=== PATIENT | female | born 1935 | race Caucasian/White ===

== ENCOUNTER 2019-02-16 12:13 | Inpatient (IN) | payer MEDICARE, OTHER ==
[2019-02-16] MEDS ORDERED: Ondansetron 4 MG/2 ML SDV IVPUSH ONE ×2 (12:27→13:22)
[2019-02-16] MEDS ORDERED: Lactated Ringers 1,000 ML IV ONE (12:28)
--- NOTE | 2019-02-16 12:47 | EDM.PDOC ---
ED HPI GENERAL MEDICAL PROBLEM - General Chief Complaint: Lower Extremity Injury/Pain Stated Complaint: [facility] Time Seen by Provider: 02/16/19 12:42 Source of Information: Reports: Patient History Limitations: Reports: No Limitations - History of Present Illness INITIAL COMMENTS - FREE TEXT/NARRATIVE: 83-year-old female is brought in by [facility] for possible hip fracture. Patient was working in her garden when she tripped over a cucumber. No head trauma. Had pain to the left hip and identifies pain to the greater trochanter. At this time she is pain-free as EMS did give her 1 mg of Dilaudid. She is feeling nauseous and flushed from this. No pain to the left knee. No history of any problems with the left hip previously. Only had coffee this morning. 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: - Past Surgical History Female Surgical History: Reports: Hysterectomy Social & Family History - Family History Family Medical History: Noncontributory - Tobacco Use Smoking Status *Q: Never Smoker Second Hand Smoke Exposure: No - Caffeine Use Caffeine Use: Reports: Coffee - Recreational Drug Use Recreational Drug Use: No Review of Systems - Review of Systems Review Of Systems: See Below GI/Abdominal: Reports: Nausea, Vomiting Musculoskeletal: Reports: Other (left hip) Neurological: Denies: Headache, Syncope ED EXAM, GENERAL - Physical Exam Exam: See Below Exam Limited By: No Limitations General Appearance: Alert, WD/WN, Mild Distress Throat/Mouth: Normal Inspection, Normal Lips, Normal Voice, No Airway Compromise Head: Other (flushed face) Respiratory/Chest: No Respiratory Distress, Lungs Clear, Normal Breath Sounds Cardiovascular: Normal Peripheral Pulses, No Murmur, Tachycardia Peripheral Pulses: 3+: Posterior Tibial (L), Posterior Tibial (R), Dorsalis Pedis (L), Dorsalis Pedis (R) Extremities: Other (left leg is shortened, no external rotation, no pain with rotation of the left hip, however, pain had 1mg of dilaudid prior to arrival ) Neurological: Alert, Normal Cognition Skin Exam: Diaphoretic, Other (face is flushed) Course - Vital Signs Last Recorded V/S: Last Vital Signs Temp 97.9 F 02/16/19 12:22 Pulse 91 02/16/19 12:22 Resp 16 02/16/19 12:22 BP 143/73 H 02/16/19 12:22 Pulse Ox 94 L 02/16/19 12:22 - Orders/Labs/Meds Orders: Active Orders 24 hr Category Date Time Status Oxygen Therapy [RC] ASDIRECTED Care 02/16/19 13:08 Active Hip Min 2V or 3V w Pelvis Lt [CR] Stat Exams 02/16/19 12:27 Taken Lactated Ringers [Ringers, Lactated] 1,000 ml Med 02/16/19 12:28 Active IV .BOLUS Medication Orders Lactated Ringer's (Ringers, Lactated) 1,000 mls @ 100 mls/hr IV .BOLUS ONE Stop: 02/16/19 22:27 Last Admin: 02/16/19 12:36 Dose: 100 mls/hr Meds: Medications Generic Name Dose Route Start Last Admin Trade Name Freq PRN Reason Stop Dose Admin Lactated Ringer's 1,000 mls @ 100 mls/hr 02/16/19 12:28 02/16/19 12:36 Ringers, Lactated IV 02/16/19 22:27 100 mls/hr .BOLUS ONE Administration Discontinued Medications Generic Name Dose Route Start Last Admin Trade Name Freq PRN Reason Stop Dose Admin Ondansetron HCl 4 mg 02/16/19 12:27 02/16/19 12:38 Zofran IVPUSH 02/16/19 12:28 4 mg ONETIME ONE Administration Ondansetron HCl 4 mg 02/16/19 13:22 02/16/19 13:32 Zofran IVPUSH 02/16/19 13:23 4 mg ONETIME ONE Administration - Radiology Interpretation Free Text/Narrative:: xray of the left hip and pelvis shows a femoral neck fracture. - Re-Assessments/Exams Free Text/Narrative Re-Assessment/Exam: 02/16/19 13:[address] Partida of hip fracture. Will plan for surgery tomorrow. Discussed with Dr. Reyes hospitalist on. Agrees to the admission. Patient given 4mg IV zofran, continuing to vomiting from Dilaudid. Additional 4mg IV zofran ordered. Departure - Departure Time of Disposition: 13:44 Disposition: Admitted As Inpatient 64 Condition: Fair Clinical Impression: Femoral neck fracture - Discharge Information *PRESCRIPTION DRUG MONITORING PROGRAM REVIEWED*: No *COPY OF PRESCRIPTION DRUG MONITORING REPORT IN PATIENT MARTHA: No Forms: ED Department Discharge Additional Instructions: Admitted to Dr. Reyes for left femoral neck fracture. Dr. Partida will plan to take to surgery tomorrow. - My Orders Last 24 Hours: My Active Orders 02/16/19 12:27 Hip Min 2V or 3V w Pelvis Lt [CR] Stat 02/16/19 12:28 Lactated Ringers [Ringers, Lactated] 1,000 ml IV .BOLUS 02/16/19 13:08 Oxygen Therapy [RC] ASDIRECTED - Assessment/Plan Last 24 Hours: My Active Orders 02/16/19 12:27 Hip Min 2V or 3V w Pelvis Lt [CR] Stat 02/16/19 12:28 Lactated Ringers [Ringers, Lactated] 1,000 ml IV .BOLUS 02/16/19 13:08 Oxygen Therapy [RC] ASDIRECTED
[2019-02-16] MEDS ORDERED: Ondansetron 4 MG/2 ML SDV IV PRN (16:40)
[2019-02-16] MEDS ORDERED: LORazepam 2 MG/ML SDV IVPUSH PRN (16:42)
[2019-02-16] MEDS ORDERED: Ondansetron 8 MG in Sodium Chloride 0.9% 50 ML IV PRN (16:47)
[2019-02-16] MEDS ORDERED: Promethazine 25 MG in Sodium Chloride 0.9% 50 ML IV ONE (16:55)
--- NOTE | 2019-02-16 17:09 | PCM.HP.2 ---
H&P History of Present Illness - General Date of Service: 02/16/19 Admit Problem/Dx: Admission Diagnosis/Problem Admission Diagnosis/Problem Hip fracture requiring operative repair Source of Information: Patient, EMS Notes Reviewed, Provider, RN Notes Reviewed History Limitations: Reports: No Limitations - History of Present Illness Initial Comments - Free Text/Narative: 83 year old female tripped in garden today and suffered left femoral fx. she relates no dizziness ,chest pain, ramirez, sob or vertigo.she feels well and on minimal meds at all . she has nausea since being given dilaudid and has muscle cramps in left leg and mild pain with this currently Onset of Symptoms: Reports: Today Duration of Symptoms: Reports: Hour(s): (4) Quality: Reports: Sharp Severity: Moderate Improves with: Reports: Immobilization Worsens with: Reports: Movement Associated Symptoms: Reports: No Other Symptoms, Nausea/Vomiting Left Hip Pain Score (Numeric/FACES): 0 - Related Data Allergies/Adverse Reactions: Allergies Allergy/AdvReac Type Severity Reaction Status Date / Time No Known Allergies Allergy Verified 02/16/19 12:27 Home Medications: Home Meds Metoprolol Succinate [Toprol XL] 50 mg PO DAILY 12/13/14 [History] Omeprazole 20 mg PO DAILY 12/13/14 [History] Fluticasone Propionate [Flovent] 1 spray INH ASDIRECTED PRN 02/16/19 [History] Past Medical History HEENT History: Reports: Impaired Vision Cardiovascular History: Reports: Hypertension Respiratory History: Reports: Bronchitis, Recurrent Gastrointestinal History: Reports: Colon Polyp, Diverticulosis, GERD Genitourinary History: Reports: UTI, Recurrent 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: Dermatologic History: Reports: Eczema - Past Surgical History HEENT Surgical History: Reports: Cataract Surgery GI Surgical History: Reports: Cholecystectomy Female Surgical History: Reports: Hysterectomy Social & Family History - Family History Family Medical History: Noncontributory - Tobacco Use Smoking Status *Q: Never Smoker Second Hand Smoke Exposure: No - Caffeine Use Caffeine Use: Reports: Coffee, Tea - Recreational Drug Use Recreational Drug Use: No H&P Review of Systems - Review of Systems: Review Of Systems: See Below General: Reports: No Symptoms HEENT: Reports: No Symptoms Pulmonary: Reports: No Symptoms Cardiovascular: Reports: No Symptoms Gastrointestinal: Reports: Nausea (chronic reflux ), Other Genitourinary: Reports: No Symptoms Musculoskeletal: Reports: No Symptoms Skin: Reports: No Symptoms Psychiatric: Reports: No Symptoms Neurological: Reports: No Symptoms Hematologic/Lymphatic: Reports: No Symptoms Immunologic: Reports: No Symptoms Exam - Exam Exam: See Below - Vital Signs Vital Signs: Last Vital Signs Temp 36.6 C 02/16/19 12:22 Pulse 91 02/16/19 12:22 Resp 16 02/16/19 12:22 BP 143/73 H 02/16/19 12:22 Pulse Ox 94 L 02/16/19 12:22 Weight: 76.43 kg - Exam General: Alert, Oriented, 4 HEENT: PERRLA, Hearing Intact, Mucosa Moist & Tropic, Nares Patent, Normal Nasal Septum, Posterior Pharynx Clear, Conjunctiva Clear, EOMI, EACs Clear, TMs Clear Neck: Supple, Trachea Midline, 2 Lungs: Clear to Auscultation, Normal Respiratory Effort Cardiovascular: Regular Rate, Regular Rhythm GI/Abdominal Exam: Normal Bowel Sounds, Soft, Non-Tender, No Organomegaly, No Distention, No Abnormal Bruit, No Mass, Pelvis Stable (Female) Exam: Deferred. No: Normal External Exam, Normal Speculum Exam, Normal Bimanual Exam Rectal (Female) Exam: No: Normal Exam, Normal Rectal Tone Back Exam: Normal Inspection, Full Range of Motion, NT Extremities: Normal Inspection, Normal Range of Motion, Non-Tender, No Pedal Edema, Normal Capillary Refill Peripheral Pulses: 2+: Carotid (L), Carotid (R) Skin: Warm, Dry, Intact Neurological: Cranial Nerves Intact, Reflexes Equal Bilateral Neuro Extensive - Mental Status: Alert, Oriented x3, Normal Mood/Affect, Normal Cognition Neuro Extensive - Motor, Sensory, Reflexes: CN II-XII Intact, Normal Gait, Normal Reflexes DTR: 1+: Bicep (L), Bicep (R) Psychiatric: Alert, Normal Affect, Normal Mood Physical Exam Comments:: left hip outward turned and pain with movement / leg cramping EKG INTERPRETATION Rhythm: NSR Roosevelt: Normal P-Wave: Present QRS: Normal ST-T: Normal QT: Normal - Problem List (1) Hypertension SNOMED Code(s): 28092835 ICD Code: I10 - ESSENTIAL (PRIMARY) HYPERTENSION Status: Acute Priority: Low Current Visit: Yes Onset Date: 02/16/19 (2) Chronic GERD SNOMED Code(s): 579490458, 141503005 ICD Code: K21.9 - GASTRO-ESOPHAGEAL REFLUX DISEASE WITHOUT ESOPHAGITIS Status: Acute Priority: Low Current Visit: Yes Onset Date: 02/16/19 Problem List Initiated/Reviewed/Updated: Yes Orders Last 24hrs: Active Orders 24 hr Category Date Time Status Patient Status [ADT] Routine ADT 02/16/19 14:23 Active Oxygen Therapy [RC] ASDIRECTED Care 02/16/19 13:08 Active Verify Patient Consent Obtain [RC] ASDIRECTED Care 02/16/19 14:28 Active NPO After Midnight [Nothing per Oral After Midnight Diet 02/16/19 Dinner Active Diet] [DIET] Hip Min 2V or 3V w Pelvis Lt [CR] Stat Exams 02/16/19 12:27 Taken METH-RESIST S.AUR,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 [MOLEC] Stat Lab 02/16/19 15:00 Received Cyclobenzaprine [Flexeril] Med 02/16/19 16:43 Active 10 mg PO TID PRN LORazepam [Ativan] Med 02/16/19 16:42 Active 1 mg IVPUSH Q4H PRN Lactated Ringers [Ringers, Lactated] 1,000 ml Med 02/16/19 12:28 Active IV .BOLUS Ondansetron [Zofran] 8 mg Med 02/16/19 16:47 Active Sodium Chloride 0.9% [Normal Saline] 50 ml IV Q8H Promethazine [Phenergan] 25 mg Med 02/16/19 16:55 Ordered Sodium Chloride 0.9% [Normal Saline] 50 ml IV ONETIME Code Status [Resuscitation Status] Routine Resus Stat 02/16/19 16:11 Ordered Medication Orders Cyclobenzaprine HCl (Flexeril) 10 mg PO TID PRN PRN Reason: Spasms Lactated Ringer's (Ringers, Lactated) 1,000 mls @ 100 mls/hr IV .BOLUS ONE Stop: 02/16/19 22:27 Last Admin: 02/16/19 12:36 Dose: 100 mls/hr Ondansetron HCl 8 mg/ Sodium (Chloride) 54 mls @ 108 mls/hr IV Q8H PRN PRN Reason: NAUSEA/VOMITING Promethazine HCl 25 mg/ Sodium (Chloride) 51 mls @ 100 mls/hr IV ONETIME ONE Stop: 02/16/19 17:25 Lorazepam (Ativan) 1 mg IVPUSH Q4H PRN PRN Reason: Nausea Assessment/Plan Comment:: give i.v mag muscle relaxant for cramps if persist. pain control good other than cramps
[2019-02-16] MEDS ORDERED: Sodium Chloride 0.9% 50 ML ONE (17:37)
--- NOTE | 2019-02-16 18:38 | PCM.PREANE ---
Preanesthetic Assessment - Anesthesia/Transfusion/Family Hx Anesthesia History: Prior Anesthesia Without Reaction Family History of Anesthesia Reaction: No Transfusion History: No Prior Transfusion(s) Intubation History: Unknown - Review of Systems General: No Symptoms Pulmonary: No Symptoms (COPD-recurrent bronchitis on flovent inhaler) Cardiovascular: No Symptoms (history of HTN) Gastrointestinal: No Symptoms (History of GERD), Constipation Neurological: No Symptoms Other: Reports: Sinus Problem (seasonal allergies) - Physical Assessment NPO Status Date: 02/16/19 NPO Status Time: 23:59 Vital Signs: Last Vital Signs Temp 36.6 C 02/16/19 12:22 Pulse 71 02/16/19 14:59 Resp 12 02/16/19 14:59 BP 139/71 02/16/19 14:59 Pulse Ox 98 02/16/19 14:59 Height: 1.65 m Weight: 76.43 kg ASA Class: 2E Mental Status: Alert & Oriented x3 Airway Class: Mallampati = 2 Dentition: Reports: Normal Dentition, Caries Thyro-Mental Finger Breadths: 3 Mouth Opening Finger Breadths: 3 ROM/Head Extension: Full Lungs: Clear to Auscultation, Normal Respiratory Effort, Rhonchi (faint on expiration) Cardiovascular: Regular Rate, Regular Rhythm, No Murmurs - Lab Values: Laboratory Last Values MRSA (PCR) Negative 02/16/19 15:00 All labs reviewed and noted and within acceptable ranges to proceed with scheduled procedure. - Imaging/EKG Impressions: CXR: mild CHF suspicious of EKG:SR rate=75 - Allergies Allergies/Adverse Reactions: Allergies Allergy/AdvReac Type Severity Reaction Status Date / Time No Known Allergies Allergy Verified 02/16/19 12:27 - Anesthesia Plan Pre-Op Medication Ordered: Beta Rashid Beta Rashid: Metoprolol Med Last Dose Date: 02/17/19 Med Last Dose Time: 06:49 - Acknowledgements Anesthesia Type Planned: Spinal Pt an Appropriate Candidate for the Planned Anesthesia: Yes Alternatives and Risks of Anesthesia Discussed w Pt/Guardian: Yes Pt/Guardian Understands and Agrees with Anesthesia Plan: Yes PreAnesthesia Questionnaire HEENT History: Reports: Impaired Vision Cardiovascular History: Reports: Hypertension Respiratory History: Reports: Bronchitis, Recurrent Gastrointestinal History: Reports: Colon Polyp, Diverticulosis, GERD Genitourinary History: Reports: UTI, Recurrent 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: Dermatologic History: Reports: Eczema - Past Surgical History HEENT Surgical History: Reports: Cataract Surgery GI Surgical History: Reports: Cholecystectomy Female Surgical History: Reports: Hysterectomy - SUBSTANCE USE Smoking Status *Q: Never Smoker Second Hand Smoke Exposure: No Recreational Drug Use History: No - HOME MEDS Home Medications: Home Meds Metoprolol Succinate [Toprol XL] 50 mg PO DAILY 12/13/14 [History] Omeprazole 20 mg PO DAILY 12/13/14 [History] Fluticasone Propionate [Flovent] 1 spray INH ASDIRECTED PRN 02/16/19 [History] - CURRENT (IN HOUSE) MEDS Current Meds: Current Medications Cyclobenzaprine HCl (Flexeril) 10 mg PO TID PRN PRN Reason: Spasms Lactated Ringer's (Ringers, Lactated) 1,000 mls @ 100 mls/hr IV .BOLUS ONE Stop: 02/16/19 22:27 Last Admin: 02/16/19 12:36 Dose: 100 mls/hr Ondansetron HCl 8 mg/ Sodium (Chloride) 54 mls @ 108 mls/hr IV Q8H PRN PRN Reason: NAUSEA/VOMITING Lorazepam (Ativan) 1 mg IVPUSH Q4H PRN PRN Reason: Nausea Metoprolol Succinate (Toprol Xl) 50 mg PO DAILY PATRICIA Pantoprazole Sodium (Protonix) 40 mg PO DAILY@0700 PATRICIA Discontinued Medications Promethazine HCl 25 mg/ Sodium (Chloride) 51 mls @ 100 mls/hr IV ONETIME ONE Stop: 02/16/19 17:25 Last Admin: 02/16/19 17:55 Dose: 100 mls/hr Magnesium Sulfate/Dextrose 1 (gm/ Premix) 100 mls @ 100 mls/hr IV ONETIME ONE Stop: 02/16/19 18:12 Sodium Chloride (Normal Saline) Confirm Administered Dose 50 mls @ as directed .ROUTE .STK-MED ONE Stop: 02/16/19 17:38 Ondansetron HCl (Zofran) 4 mg IVPUSH ONETIME ONE Stop: 02/16/19 12:28 Last Admin: 02/16/19 12:38 Dose: 4 mg Ondansetron HCl (Zofran) 4 mg IVPUSH ONETIME ONE Stop: 02/16/19 13:23 Last Admin: 02/16/19 13:32 Dose: 4 mg
--- NOTE | 2019-02-16 20:02 | CR ---
Chest: Portable view of the chest was obtained. Comparison: Prior chest x-ray of 08/23/11. Heart is prominent in size but difficult to confirm due to portable technique. Central lung markings are mildly increased believed to represent minimal pulmonary vascular congestion. Lungs otherwise are clear. Scattered disc space narrowing within the spine is seen with scoliosis. Impression: 1. Findings suspicious for mild CHF. Diagnostic code #3
[2019-02-16] MEDS: Cyclobenzaprine 10 MG Tab PO PRN (22:59)
[2019-02-17] MEDS ORDERED: Vancomycin 1 GM SDV ONE ×2 (06:25→08:15)
[2019-02-17] MEDS ORDERED: ceFAZolin 1 GM Vial ONE ×2 (06:25→07:40)
[2019-02-17] MEDS ORDERED: Iodine/Sodium Iodide 2% Tincture 30 ML Bottle ONE ×2 (06:25→08:15)
[2019-02-17] MEDS ORDERED: Bupivacaine 0.25% 10 ML SDV ONE ×2 (06:25→08:15)
[2019-02-17] MEDS ORDERED: Albuterol 0.083% 2.5 MG/3 ML Neb Soln NEB ONE (06:40)
[2019-02-17] MEDS ORDERED: Metoprolol Succinate 50 MG Tab.ER PO ONE (06:45)
[2019-02-17] MEDS ORDERED: Morphine 8 MG, EPINEPHrine 0.3 MG, Cefuroxime 750 MG, Ketorolac 30 MG, Sodium Chloride ... ONE ×10 (06:47→08:15)
[2019-02-17] MEDS ORDERED: Naloxone 0.4 MG/ML SDV IVPUSH PRN (06:48)
[2019-02-17] MEDS ORDERED: Ondansetron 4 MG/2 ML SDV IVPUSH PRN ×2 (06:48→09:24)
[2019-02-17] MEDS ORDERED: Sennosides 8.6 MG Tab PO PRN (06:48)
[2019-02-17] MEDS ORDERED: Bisacodyl 5 MG Tab PO PRN (06:48)
[2019-02-17] MEDS: Pantoprazole 40 MG Tab.CR PO SCH (06:49)
[2019-02-17] MEDS ORDERED: Phenylephrine/Normal Saline 100 MCG/ML 10 ML Syringe ONE (07:40)
[2019-02-17] MEDS ORDERED: Propofol 200 MG/20 ML SDV ONE (07:40)
[2019-02-17] MEDS ORDERED: Sodium Chloride 0.9% 2,000 ML ONE (07:40)
[2019-02-17] MEDS ORDERED: Ondansetron 4 MG/2 ML SDV ONE (07:40)
[2019-02-17] MEDS ORDERED: fentaNYL 100 MCG/2 ML SDV ONE (07:40)
[2019-02-17] MEDS ORDERED: Midazolam 1 MG/ML 2 ML SDV ONE ×2 (07:41→09:43)
[2019-02-17] MEDS ORDERED: Ketamine 500 mg/10 ML MDV ONE (07:41)
[2019-02-17] MEDS ORDERED: Metoprolol Succinate 50 MG Tab.ER PO SCH (09:00)
[2019-02-17] MEDS ORDERED: Albuterol 0.083% 2.5 MG/3 ML Neb Soln NEB PRN (09:24)
[2019-02-17] MEDS ORDERED: diphenhydrAMINE 50 MG/ML SDV IVPUSH PRN (09:24)
[2019-02-17] MEDS ORDERED: ePHEDrine 50 MG/ML SDV IVPUSH PRN (09:24)
[2019-02-17] MEDS ORDERED: HYDROmorphone 0.5 MG/0.5 ML Syringe IVPUSH PRN (09:24)
[2019-02-17] MEDS ORDERED: fentaNYL 100 MCG/2 ML SDV IVPUSH PRN (09:24)
[2019-02-17] MEDS ORDERED: Scopolamine 1.5 MG Transdermal Patch TRDERM PRN (09:26)
[2019-02-17] MEDS ORDERED: Phenylephrine 1 MG in Sodium Chloride 0.9% 10 ML IV SCH (09:30)
--- NOTE | 2019-02-17 11:06 | PCM.POSTAN ---
POST ANESTHESIA ASSESSMENT - MENTAL STATUS Mental Status: Alert - VITAL SIGNS Vital Signs: Last Vital Signs Temp 98.1f 02/17/19 10:47 Pulse 58 02/17/19 10:47 Resp 14 02/17/19 10:47 BP 96/63 02/17/19 10:47 Pulse Ox 99 02/17/19 10:47 - RESPIRATORY Respiratory Status: Respiratory Rate WNL, Airway Patent, O2 Saturation Stable, Supplemental Oxygen - CARDIOVASCULAR CV Status: Pulse Rate WNL, Blood Pressure Stable - GASTROINTESTINAL GI Status: No Symptoms - POST OP HYDRATION Hydration Status: Adequate & Stable
[2019-02-17] MEDS ORDERED: Morphine 2 MG/ML Syringe IVPUSH PRN (11:58)
--- NOTE | 2019-02-17 13:28 | PCM.PN ---
- General Info Date of Service: 02/17/19 Admission Dx/Problem (Free Text): Admission Diagnosis/Problem Admission Diagnosis/Problem Hip fracture requiring operative repair Subjective Update: day 1 surgery this am went well l orif. lungs clear. cor rrr without murmur abd benign. neuro clear headed a nd asks appropriate questions . drinking fluids ad moving legs easily now s/p orif left . b.p stable Functional Status: Reports: Pain Controlled - Review of Systems General: Reports: No Symptoms HEENT: Reports: No Symptoms Pulmonary: Reports: No Symptoms Cardiovascular: Reports: No Symptoms Gastrointestinal: Reports: No Symptoms Genitourinary: Reports: No Symptoms Musculoskeletal: Reports: No Symptoms Skin: Reports: No Symptoms Neurological: Reports: No Symptoms Psychiatric: Reports: No Symptoms - Patient Data Vitals - Most Recent: Last Vital Signs Temp 36.8 C 02/17/19 11:30 Pulse 78 02/17/19 06:50 Resp 11 L 02/17/19 11:40 BP 98/61 02/17/19 11:40 Pulse Ox 94 L 02/17/19 11:40 Weight - Most Recent: 76.43 kg I&O - Last 24 Hours: Intake & Output 02/16/19 02/17/19 02/17/19 22:59 06:59 14:59 Intake Total 750 Output Total 850 850 Balance -100 -850 Lab Results Last 24 Hours: Laboratory Results - last 24 hr 02/16/19 02/16/19 02/16/19 Range/Units 15:00 19:13 19:13 WBC 13.41 H (3.98-10.04) K/mm3 RBC 4.45 (3.98-5.22) M/mm3 Hgb 13.2 (11.2-15.7) gm/L Hct 39.4 (34.1-44.9) % MCV 88.5 (79.4-94.8) fl MCH 29.7 (25.6-32.2) pg MCHC 33.5 (32.2-35.5) g/dl RDW Std Deviation 44.0 (36.4-46.3) fL Plt Count 198 (182-369) K/mm3 MPV 10.8 (9.4-12.3) fl Neut % (Auto) 85.5 H (34.0-71.1) % Lymph % (Auto) 9.8 L (19.3-51.7) % Elk % (Auto) 4.6 L (4.7-12.5) % Eos % (Auto) 0 L (0.7-5.8) Baso % (Auto) 0.0 L (0.1-1.2) % Neut # (Auto) 11.46 H (1.56-6.13) K/mm3 Lymph # (Auto) 1.31 (1.18-3.74) K/mm3 Elk # (Auto) 0.62 H (0.24-0.36) K/mm3 Eos # (Auto) 0.00 L (0.04-0.36) K/mm3 Baso # (Auto) 0.00 L (0.01-0.08) K/mm3 Manual Slide Review Abnormal smear PT 11.1 (9.7-12.0) SECONDS INR 1.02 APTT 24 (22-31) SECONDS Sodium (136-145) mEq/L Potassium (3.5-5.1) mEq/L Chloride (98-107) mEq/L Carbon Dioxide (21-32) mEq/L Anion Gap (5-15) BUN (7-18) mg/dL Creatinine (0.55-1.02) mg/dL Est Cr Clr Drug Dosing mL/min Estimated GFR (MDRD) (>60) mL/min BUN/Creatinine Ratio (14-18) Glucose (83-115) mg/dL Calcium (8.5-10.1) mg/dL Total Bilirubin (0.2-1.0) mg/dL AST (15-37) U/L ALT (14-59) U/L Alkaline Phosphatase (46-116) U/L Total Protein (6.4-8.2) g/dl Albumin (3.4-5.0) g/dl Globulin gm/dL Albumin/Globulin Ratio (1-2) MRSA (PCR) Negative Blood Type Gel Antibody Screen 02/16/19 02/16/19 Range/Units 19:13 19:13 WBC (3.98-10.04) K/mm3 RBC (3.98-5.22) M/mm3 Hgb (11.2-15.7) gm/L Hct (34.1-44.9) % MCV (79.4-94.8) fl MCH (25.6-32.2) pg MCHC (32.2-35.5) g/dl RDW Std Deviation (36.4-46.3) fL Plt Count (182-369) K/mm3 MPV (9.4-12.3) fl Neut % (Auto) (34.0-71.1) % Lymph % (Auto) (19.3-51.7) % Elk % (Auto) (4.7-12.5) % Eos % (Auto) (0.7-5.8) Baso % (Auto) (0.1-1.2) % Neut # (Auto) (1.56-6.13) K/mm3 Lymph # (Auto) (1.18-3.74) K/mm3 Elk # (Auto) (0.24-0.36) K/mm3 Eos # (Auto) (0.04-0.36) K/mm3 Baso # (Auto) (0.01-0.08) K/mm3 Manual Slide Review PT (9.7-12.0) SECONDS INR APTT (22-31) SECONDS Sodium 131 L (136-145) mEq/L Potassium 4.9 (3.5-5.1) mEq/L Chloride 95 L (98-107) mEq/L Carbon Dioxide 25 (21-32) mEq/L Anion Gap 15.9 H (5-15) BUN 16 (7-18) mg/dL Creatinine 0.8 (0.55-1.02) mg/dL Est Cr Clr Drug Dosing 46.26 mL/min Estimated GFR (MDRD) > 60 (>60) mL/min BUN/Creatinine Ratio 20.0 H (14-18) Glucose 145 H (83-115) mg/dL Calcium 9.7 (8.5-10.1) mg/dL Total Bilirubin 0.7 (0.2-1.0) mg/dL AST 37 (15-37) U/L ALT 28 (14-59) U/L Alkaline Phosphatase 73 (46-116) U/L Total Protein 8.4 H (6.4-8.2) g/dl Albumin 3.8 (3.4-5.0) g/dl Globulin 4.6 gm/dL Albumin/Globulin Ratio 0.8 L (1-2) MRSA (PCR) Blood Type A POSITIVE Gel Antibody Screen Negative Med Orders - Current: Current Medications Hydrocodone Bitart/Acetaminophen ([place] 325-5 Mg) 1 - 2 tab PO Q4H PRN PRN Reason: Pain Albuterol (Proventil Neb Soln) 2.5 mg NEB ONETIME PRN PRN Reason: bronchodilation Bisacodyl (Dulcolax) 5 mg PO DAILY PRN PRN Reason: Constipation Cyclobenzaprine HCl (Flexeril) 10 mg PO TID PRN PRN Reason: Spasms Last Admin: 02/16/19 22:59 Dose: 10 mg Diphenhydramine HCl (Benadryl) 25 mg IVPUSH Q6H PRN PRN Reason: pruritis Docusate Sodium (Colace) 100 mg PO BID [facility] Ondansetron HCl 8 mg/ Sodium (Chloride) 54 mls @ 108 mls/hr IV Q8H PRN PRN Reason: NAUSEA/VOMITING Cefazolin Sodium/Dextrose 2 gm (/ Premix) 50 mls @ 100 mls/hr IV Q8H [facility] Stop: 02/18/19 09:29 Lorazepam (Ativan) 1 mg IVPUSH Q4H PRN PRN Reason: Nausea Last Admin: 02/17/19 03:17 Dose: 1 mg Metoprolol Succinate (Toprol Xl) 50 mg PO DAILY [facility] Morphine Sulfate (Morphine) 2 mg IVPUSH Q2H PRN PRN Reason: Pain Naloxone HCl (Narcan) 0.1 mg IVPUSH Q5M PRN PRN Reason: Oversedation Pantoprazole Sodium (Protonix) 40 mg PO DAILY@0700 [facility] Last Admin: 02/17/19 06:49 Dose: 40 mg Rivaroxaban (Xarelto) 10 mg PO DAILY [facility] Scopolamine (Transderm-Scop) 1.5 mg TRDERM ONETIME PRN PRN Reason: PONV Senna (Senna) 8.6 mg PO BID PRN PRN Reason: Constipation Discontinued Medications Albuterol (Proventil Neb Soln) 2.5 mg NEB ONETIME ONE Stop: 02/17/19 06:41 Last Admin: 02/17/19 06:57 Dose: 2.5 mg Bupivacaine HCl (Sensorcaine-Mpf 0.25%) Confirm Administered Dose 30 ml .ROUTE .STK-MED ONE Stop: 02/17/19 06:26 Bupivacaine HCl (Sensorcaine-Mpf 0.25%) Confirm Administered Dose 30 ml .ROUTE .STK-MED ONE Stop: 02/17/19 08:16 Last Admin: 02/17/19 10:12 Dose: 20 ml Cefazolin Sodium (Ancef) Confirm Administered Dose 2 gm .ROUTE .STK-MED ONE Stop: 02/17/19 06:26 Cefazolin Sodium (Ancef) Confirm Administered Dose 2 gm .ROUTE .STK-MED ONE Stop: 02/17/19 07:41 Last Admin: 02/17/19 10:07 Dose: 2 gm Morphine Sulfate 8 mg/Epinephrine HCl 0.3 mg/Cefuroxime Sodium 750 mg/Ketorolac Tromethamine 30 mg/Sodium Chloride 27.9 ml 0 mg .XX ONETIME ONE Stop: 02/17/19 06:48 Morphine Sulfate 8 mg/Epinephrine HCl 0.3 mg/Cefuroxime Sodium 750 mg/Ketorolac Tromethamine 30 mg/Sodium Chloride 27.9 ml 0 mg .XX ONETIME ONE Stop: 02/17/19 08:16 Last Admin: 02/17/19 10:12 Dose: 788.3 mg Ephedrine Sulfate (Ephedrine Sulfate) 5 mg IVPUSH ASDIRECTED PRN PRN Reason: Hypotension Fentanyl (Sublimaze) Confirm Administered Dose 100 mcg .ROUTE .STK-MED ONE Stop: 02/17/19 07:41 Fentanyl (Sublimaze) 50 mcg IVPUSH Q5M PRN PRN Reason: Pain Hydromorphone HCl (Dilaudid) 0.5 mg IVPUSH Q15M PRN PRN Reason: Pain (severe 7-10) Lactated Ringer's (Ringers, Lactated) 1,000 mls @ 100 mls/hr IV .BOLUS ONE Stop: 02/16/19 22:27 Last Admin: 02/16/19 12:36 Dose: 100 mls/hr Promethazine HCl 25 mg/ Sodium (Chloride) 51 mls @ 100 mls/hr IV ONETIME ONE Stop: 02/16/19 17:25 Last Admin: 02/16/19 17:55 Dose: 100 mls/hr Magnesium Sulfate/Dextrose 1 (gm/ Premix) 100 mls @ 100 mls/hr IV ONETIME ONE Stop: 02/16/19 18:12 Last Admin: 02/16/19 20:07 Dose: 100 mls/hr Sodium Chloride (Normal Saline) Confirm Administered Dose 50 mls @ as directed .ROUTE .ST-MED ONE Stop: 02/16/19 17:38 Last Admin: 02/16/19 20:34 Dose: Not Given Lidocaine HCl (Xylocaine-Mpf 1%) Confirm Administered Dose 10 mls @ as directed .ROUTE .ST-MED ONE Stop: 02/17/19 07:41 Sodium Chloride (Normal Saline) Confirm Administered Dose 2,000 mls @ as directed .ROUTE .[facility]-MED ONE Stop: 02/17/19 07:41 Phenylephrine HCl 1 mg/ Sodium (Chloride) 10.1 mls @ 1 mls/sec IV TITRATE PATRICIA; Protocol Iodine (Iodine 2% Mild Tincture) Confirm Administered Dose 30 ml .ROUTE .[facility]- MED ONE Stop: 02/17/19 06:26 Iodine (Iodine 2% Mild Tincture) Confirm Administered Dose 30 ml .ROUTE .ST- MED ONE Stop: 02/17/19 08:16 Last Admin: 02/17/19 10:05 Dose: 18 ml Ketamine HCl (Ketalar) Confirm Administered Dose 500 mg .ROUTE .ST-MED ONE Stop: 02/17/19 07:42 Metoprolol Succinate (Toprol Xl) 50 mg PO DAILY [facility] Metoprolol Succinate (Toprol Xl) 50 mg PO ONETIME ONE Stop: 02/17/19 06:46 Last Admin: 02/17/19 06:49 Dose: 50 mg Midazolam HCl (Versed 1 Mg/Ml) Confirm Administered Dose 2 mg .ROUTE .ST-MED ONE Stop: 02/17/19 07:42 Midazolam HCl (Versed 1 Mg/Ml) Confirm Administered Dose 2 mg .ROUTE .STK-MED ONE Stop: 02/17/19 09:44 Ondansetron HCl (Zofran) 4 mg IVPUSH ONETIME ONE Stop: 02/16/19 12:28 Last Admin: 02/16/19 12:38 Dose: 4 mg Ondansetron HCl (Zofran) 4 mg IVPUSH ONETIME ONE Stop: 02/16/19 13:23 Last Admin: 02/16/19 13:32 Dose: 4 mg Ondansetron HCl (Zofran) 4 mg IVPUSH Q6H PRN PRN Reason: Nausea/Vomiting Ondansetron HCl (Zofran) Confirm Administered Dose 4 mg .ROUTE .STK-MED ONE Stop: 02/17/19 07:41 Ondansetron HCl (Zofran) 4 mg IVPUSH ONETIME PRN PRN Reason: Nausea/Vomiting Phenylephrine HCl (Phenylephrine In Ns 100 Mcg/Ml) Confirm Administered Dose 1 mg .ROUTE .STK-MED ONE Stop: 02/17/19 07:41 Propofol (Diprivan 20 Ml) Confirm Administered Dose 400 mg .ROUTE .STK-MED ONE Stop: 02/17/19 07:41 Tranexamic Acid (Cyklokapron) Confirm Administered Dose 1,000 mg .ROUTE .STK- MED ONE Stop: 02/17/19 06:26 Tranexamic Acid (Cyklokapron) Confirm Administered Dose 1,000 mg .ROUTE .STK- MED ONE Stop: 02/17/19 08:16 Last Admin: 02/17/19 10:18 Dose: 1,000 mg Vancomycin HCl (Vancomycin) Confirm Administered Dose 1 gm .ROUTE .STK-MED ONE Stop: 02/17/19 06:26 Vancomycin HCl (Vancomycin) Confirm Administered Dose 1 gm .ROUTE .STK-MED ONE Stop: 02/17/19 08:16 Last Admin: 02/17/19 10:13 Dose: 1 gm - Exam General: Alert, Oriented HEENT: Pupils Equal, Pupils Reactive, EOMI, Mucous Membr. Moist/[place] Neck: Supple Lungs: Clear to Auscultation, Normal Respiratory Effort Cardiovascular: Regular Rate, Regular Rhythm GI/Abdominal Exam: Normal Bowel Sounds, Soft, Non-Tender, No Organomegaly, No Distention, No Abnormal Bruit, No Mass, Pelvis Stable (Female) Exam: Normal External Exam, Normal Speculum Exam, Normal Bimanual Exam Back Exam: Normal Inspection, Full Range of Motion Extremities: Normal Inspection, Normal Range of Motion, Non-Tender, No Pedal Edema, Normal Capillary Refill Skin: Warm, Dry, Intact Wound/Incisions: Healing Well Neurological: No New Focal Deficit Psy/Mental Status: Alert, Normal Affect, Normal Mood - Problem List & Annotations (1) Hypertension SNOMED Code(s): 24854875 Code(s): I10 - ESSENTIAL (PRIMARY) HYPERTENSION Status: Acute Priority: Low Current Visit: Yes Onset Date: 02/16/19 (2) Chronic GERD SNOMED Code(s): 604974749, 435257678 Code(s): K21.9 - GASTRO-ESOPHAGEAL REFLUX DISEASE WITHOUT ESOPHAGITIS Status: Acute Priority: Low Current Visit: Yes Onset Date: 02/16/19 (3) Femoral neck fracture SNOMED Code(s): 8951222 Code(s): S72.009A - FRACTURE OF UNSP PART OF NECK OF UNSP FEMUR, INIT Status: Acute Priority: Medium Current Visit: Yes Onset Date: 02/16/19 Qualifiers: Encounter type: initial encounter Fracture type: open Laterality: left (4) Leg pain, left SNOMED Code(s): 037260471 Code(s): M79.605 - PAIN IN LEFT LEG Status: Acute Current Visit: No - Problem List Review Problem List Initiated/Reviewed/Updated: Yes - My Orders Last 24 Hours: My Active Orders 02/16/19 16:11 Code Status [Resuscitation Status] Routine 02/16/19 16:42 LORazepam [Ativan] 1 mg IVPUSH Q4H PRN 02/16/19 16:43 Cyclobenzaprine [Flexeril] 10 mg PO TID PRN 02/16/19 16:47 Ondansetron [Zofran] 8 mg Sodium Chloride 0.9% [Normal Saline] 50 ml IV Q8H 02/16/19 18:08 Antiembolic Devices [RC] BID SCD [Sequential Compression Device] [OM.PC] Routine 02/17/19 07:00 Pantoprazole [ProTONIX] 40 mg PO DAILY@0702/18/19 09:00 Metoprolol Succinate [Toprol XL] 50 mg PO DAILY - Plan Plan:: s surgery day doing well post op . resuming reg diet / monitor for complications post o.p .
[2019-02-17] MEDS: Acetaminophen/HYDROcodone 325-5 MG Tab PO PRN (14:35)
[2019-02-17] MEDS ORDERED: Sodium Chloride 0.9% 500 ML IV ONE ×2 (15:50→17:37)
[2019-02-17] MEDS: ceFAZolin 2 GM in Premix Bag 1 BAG IV SCH (17:23)
--- NOTE | 2019-02-17 18:04 | PCM.SN ---
- Free Text/Narrative Note: 02/17/19 pm hypotensive most of afternoon . on beta yolanda given fluid push as not taking fluids in very well / sleepy now after family in all day p.e unchanged and no rales or ronchii she feels well just tired / repeat labs drawn assess post op hypotension and will hiold beta yolanda and give ns x one liter and follow u p on b.p and labs boh
[2019-02-17] MEDS: Docusate Sodium 100 MG Cap PO SCH (20:37)
[2019-02-18] MEDS: ceFAZolin 2 GM in Premix Bag 1 BAG IV SCH ×2 (01:19→09:04)
[2019-02-18] MEDS: Pantoprazole 40 MG Tab.CR PO SCH (06:14)
[2019-02-18] MEDS: Acetaminophen/HYDROcodone 325-5 MG Tab PO PRN ×4 (06:14→23:33)
[2019-02-18] MEDS: Rivaroxaban 10 MG Tab PO SCH (09:06)
[2019-02-18] MEDS: Docusate Sodium 100 MG Cap PO SCH ×2 (09:06→20:32)
--- NOTE | 2019-02-18 11:53 | PCM48HPAN ---
Post Anesthesia Note - EVALUATION WITHIN 48HRS OF ANESTHETIC Vital Signs in Normal Range: Yes Patient Participated in Evaluation: Yes Respiratory Function Stable: Yes Airway Patent: Yes Cardiovascular Function Stable: Yes Hydration Status Stable: Yes Pain Control Satisfactory: Yes Nausea and Vomiting Control Satisfactory: Yes Mental Status Recovered: Yes Vital Signs: Last Vital Signs Temp 37.0 C 02/18/19 08:10 Pulse 72 02/18/19 08:10 Resp 16 02/18/19 08:10 BP 106/60 02/18/19 08:10 Pulse Ox 92 L 02/18/19 08:10 Above vitals reviewed and noted.
[2019-02-18] MEDS: Metoprolol Succinate 50 MG Tab.ER PO SCH (12:44)
--- NOTE | 2019-02-18 14:08 | PCM.PN ---
- General Info Date of Service: 02/18/19 Admission Dx/Problem (Free Text): Admission Diagnosis/Problem Admission Diagnosis/Problem Hip fracture requiring operative repair Subjective Update: day 1 surgery this am went well l orif. lungs clear. cor rrr without murmur abd benign. neuro clear headed a nd asks appropriate questions . drinking fluids ad moving legs easily now s/p orif left . b.p stable boh 02/18/19 pod 2 doing very well hypotension responding to 1 liter fluid and now resolved. mild bradicardia and normal trop and d dimer and labs yest . assymptomatic and eating and moving without problems p.e lungs clear cor: rrr with occ pac and pvc abd benign neuro normal. wound clean and dry minimal redness. assess. stable pod 2 left orif hypotension mild and stable bradicardia sec to surg and beta yolanda hypertension stable anemia mild and monitoring boh Functional Status: Reports: Pain Controlled - Review of Systems General: Reports: No Symptoms, Other (mild hypotension yest. work up neg . given iv fluids x one liter ) HEENT: Reports: No Symptoms Pulmonary: Reports: No Symptoms Cardiovascular: Reports: No Symptoms Gastrointestinal: Reports: No Symptoms Genitourinary: Reports: No Symptoms Musculoskeletal: Reports: No Symptoms Skin: Reports: No Symptoms Neurological: Reports: No Symptoms Psychiatric: Reports: No Symptoms - Patient Data Vitals - Most Recent: Last Vital Signs Temp 36.8 C 02/18/19 11:26 Pulse 73 02/18/19 12:44 Resp 20 02/18/19 11:26 BP 134/92 H 02/18/19 12:44 Pulse Ox 96 02/18/19 11:27 Weight - Most Recent: 77.383 kg I&O - Last 24 Hours: Intake & Output 02/17/19 02/18/19 02/18/19 22:59 06:59 14:59 Intake Total 1663 350 180 Output Total 150 1315 400 Balance 1513 -965 -220 Lab Results Last 24 Hours: Laboratory Results - last 24 hr 02/17/19 02/17/19 02/17/19 Range/Units 19:00 19:00 23:00 WBC 10.28 H (3.98-10.04) K/mm3 RBC 3.56 L (3.98-5.22) M/mm3 Hgb 10.7 L D (11.2-15.7) gm/L Hct 31.9 L (34.1-44.9) % MCV 89.6 (79.4-94.8) fl MCH 30.1 (25.6-32.2) pg MCHC 33.5 (32.2-35.5) g/dl RDW Std Deviation 44.0 (36.4-46.3) fL Plt Count 141 L (182-369) K/mm3 MPV 10.8 (9.4-12.3) fl Neut % (Auto) 74.9 H (34.0-71.1) % Lymph % (Auto) 15.5 L (19.3-51.7) % [place] % (Auto) 8.2 (4.7-12.5) % Eos % (Auto) 0.7 (0.7-5.8) Baso % (Auto) 0.1 (0.1-1.2) % Neut # (Auto) 7.52 H (1.56-6.13) K/mm3 Lymph # (Auto) 1.55 (1.18-3.74) K/mm3 [place] # (Auto) 0.85 H (0.24-0.36) K/mm3 Eos # (Auto) 0.07 (0.04-0.36) K/mm3 Baso # (Auto) 0.01 (0.01-0.08) K/mm3 Sodium 134 L (136-145) mEq/L Potassium 4.3 (3.5-5.1) mEq/L Chloride 103 (98-107) mEq/L Carbon Dioxide 24 (21-32) mEq/L Anion Gap 11.3 (5-15) BUN 14 (7-18) mg/dL Creatinine 0.9 (0.55-1.02) mg/dL Est Cr Clr Drug Dosing 41.12 mL/min Estimated GFR (MDRD) 60 (>60) mL/min BUN/Creatinine Ratio 15.6 (14-18) Glucose 91 (83-115) mg/dL Calcium 7.7 L D (8.5-10.1) mg/dL Magnesium 2.0 (1.8-2.4) mg/dl Total Bilirubin 0.7 (0.2-1.0) mg/dL AST 33 (15-37) U/L ALT 25 (14-59) U/L Alkaline Phosphatase 55 (46-116) U/L Troponin I 0.067 H* 0.060 H* (0.00-0.056) ng/mL Total Protein 6.1 L (6.4-8.2) g/dl Albumin 2.8 L (3.4-5.0) g/dl Globulin 3.3 gm/dL Albumin/Globulin Ratio 0.9 L (1-2) Jesús Results Last 24 Hours: Microbiology 02/17/19 19:00 Anaerobic Blood Culture - Final Blood - Venous Med Orders - Current: Current Medications Hydrocodone Bitart/Acetaminophen ([place] 325-5 Mg) 1 - 2 tab PO Q4H PRN PRN Reason: Pain Last Admin: 02/18/19 11:26 Dose: 1 tab Albuterol (Proventil Neb Soln) 2.5 mg NEB ONETIME PRN PRN Reason: bronchodilation Bisacodyl (Dulcolax) 5 mg PO DAILY PRN PRN Reason: Constipation Cyclobenzaprine HCl (Flexeril) 10 mg PO TID PRN PRN Reason: Spasms Last Admin: 02/16/19 22:59 Dose: 10 mg Diphenhydramine HCl (Benadryl) 25 mg IVPUSH Q6H PRN PRN Reason: pruritis Docusate Sodium (Colace) 100 mg PO BID [facility] Last Admin: 02/18/19 09:06 Dose: 100 mg Ondansetron HCl 8 mg/ Sodium (Chloride) 54 mls @ 108 mls/hr IV Q8H PRN PRN Reason: NAUSEA/VOMITING Lorazepam (Ativan) 1 mg IVPUSH Q4H PRN PRN Reason: Nausea Last Admin: 02/17/19 03:17 Dose: 1 mg Metoprolol Succinate (Toprol Xl) 50 mg PO DAILY [facility] Last Admin: 02/18/19 12:44 Dose: 50 mg Morphine Sulfate (Morphine) 2 mg IVPUSH Q2H PRN PRN Reason: Pain Naloxone HCl (Narcan) 0.1 mg IVPUSH Q5M PRN PRN Reason: Oversedation Pantoprazole Sodium (Protonix) 40 mg PO DAILY@0700 [facility] Last Admin: 02/18/19 06:14 Dose: 40 mg Rivaroxaban (Xarelto) 10 mg PO DAILY [facility] Last Admin: 02/18/19 09:06 Dose: 10 mg Scopolamine (Transderm-Scop) 1.5 mg TRDERM ONETIME PRN PRN Reason: PONV Senna (Senna) 8.6 mg PO BID PRN PRN Reason: Constipation Senna/Docusate Sodium (Senna Plus) 2 tab PO ONETIME ONE Stop: 02/18/19 15:01 Discontinued Medications Albuterol (Proventil Neb Soln) 2.5 mg NEB ONETIME ONE Stop: 02/17/19 06:41 Last Admin: 02/17/19 06:57 Dose: 2.5 mg Bupivacaine HCl (Sensorcaine-Mpf 0.25%) Confirm Administered Dose 30 ml .ROUTE .STK-MED ONE Stop: 02/17/19 06:26 Bupivacaine HCl (Sensorcaine-Mpf 0.25%) Confirm Administered Dose 30 ml .ROUTE .STK-MED ONE Stop: 02/17/19 08:16 Last Admin: 02/17/19 10:12 Dose: 20 ml Cefazolin Sodium (Ancef) Confirm Administered Dose 2 gm .ROUTE .STK-MED ONE Stop: 02/17/19 06:26 Cefazolin Sodium (Ancef) Confirm Administered Dose 2 gm .ROUTE .STK-MED ONE Stop: 02/17/19 07:41 Last Admin: 02/17/19 10:07 Dose: 2 gm Morphine Sulfate 8 mg/Epinephrine HCl 0.3 mg/Cefuroxime Sodium 750 mg/Ketorolac Tromethamine 30 mg/Sodium Chloride 27.9 ml 0 mg .XX ONETIME ONE Stop: 02/17/19 06:48 Last Admin: 02/17/19 18:54 Dose: Not Given Morphine Sulfate 8 mg/Epinephrine HCl 0.3 mg/Cefuroxime Sodium 750 mg/Ketorolac Tromethamine 30 mg/Sodium Chloride 27.9 ml 0 mg .XX ONETIME ONE Stop: 02/17/19 08:16 Last Admin: 02/17/19 10:12 Dose: 788.3 mg Ephedrine Sulfate (Ephedrine Sulfate) 5 mg IVPUSH ASDIRECTED PRN PRN Reason: Hypotension Fentanyl (Sublimaze) Confirm Administered Dose 100 mcg .ROUTE .STK-MED ONE Stop: 02/17/19 07:41 Fentanyl (Sublimaze) 50 mcg IVPUSH Q5M PRN PRN Reason: Pain Hydromorphone HCl (Dilaudid) 0.5 mg IVPUSH Q15M PRN PRN Reason: Pain (severe 7-10) Lactated Ringer's (Ringers, Lactated) 1,000 mls @ 100 mls/hr IV .BOLUS ONE Stop: 02/16/19 22:27 Last Admin: 02/16/19 12:36 Dose: 100 mls/hr Promethazine HCl 25 mg/ Sodium (Chloride) 51 mls @ 100 mls/hr IV ONETIME ONE Stop: 02/16/19 17:25 Last Admin: 02/16/19 17:55 Dose: 100 mls/hr Magnesium Sulfate/Dextrose 1 (gm/ Premix) 100 mls @ 100 mls/hr IV ONETIME ONE Stop: 02/16/19 18:12 Last Admin: 02/16/19 20:07 Dose: 100 mls/hr Sodium Chloride (Normal Saline) Confirm Administered Dose 50 mls @ as directed .ROUTE .STK-MED ONE Stop: 02/16/19 17:38 Last Admin: 02/16/19 20:34 Dose: Not Given Cefazolin Sodium/Dextrose 2 gm (/ Premix) 50 mls @ 100 mls/hr IV Q8H PATRICIA Stop: 02/18/19 09:29 Last Admin: 02/18/19 09:04 Dose: 100 mls/hr Lidocaine HCl (Xylocaine-Mpf 1%) Confirm Administered Dose 10 mls @ as directed .ROUTE .STK-MED ONE Stop: 02/17/19 07:41 Sodium Chloride (Normal Saline) Confirm Administered Dose 2,000 mls @ as directed .ROUTE .STK-MED ONE Stop: 02/17/19 07:41 Phenylephrine HCl 1 mg/ Sodium (Chloride) 10.1 mls @ 1 mls/sec IV TITRATE PATRICIA; Protocol Sodium Chloride (Normal Saline) 500 mls @ 999 mls/hr IV .BOLUS ONE Stop: 02/17/19 16:20 Last Admin: 02/17/19 16:05 Dose: 999 mls/hr Sodium Chloride (Normal Saline) 500 mls @ 999 mls/hr IV .BOLUS ONE Stop: 02/17/19 18:07 Last Admin: 02/17/19 17:53 Dose: 999 mls/hr Iodine (Iodine 2% Mild Tincture) Confirm Administered Dose 30 ml .ROUTE .STK- MED ONE Stop: 02/17/19 06:26 Iodine (Iodine 2% Mild Tincture) Confirm Administered Dose 30 ml .ROUTE .STK- MED ONE Stop: 02/17/19 08:16 Last Admin: 02/17/19 10:05 Dose: 18 ml Ketamine HCl (Ketalar) Confirm Administered Dose 500 mg .ROUTE .ST-MED ONE Stop: 02/17/19 07:42 Metoprolol Succinate (Toprol Xl) 50 mg PO DAILY PATRICIA Metoprolol Succinate (Toprol Xl) 50 mg PO ONETIME ONE Stop: 02/17/19 06:46 Last Admin: 02/17/19 06:49 Dose: 50 mg Midazolam HCl (Versed 1 Mg/Ml) Confirm Administered Dose 2 mg .ROUTE .[employer]-MED ONE Stop: 02/17/19 07:42 Midazolam HCl (Versed 1 Mg/Ml) Confirm Administered Dose 2 mg .ROUTE .ST-MED ONE Stop: 02/17/19 09:44 Ondansetron HCl (Zofran) 4 mg IVPUSH ONETIME ONE Stop: 02/16/19 12:28 Last Admin: 02/16/19 12:38 Dose: 4 mg Ondansetron HCl (Zofran) 4 mg IVPUSH ONETIME ONE Stop: 02/16/19 13:23 Last Admin: 02/16/19 13:32 Dose: 4 mg Ondansetron HCl (Zofran) 4 mg IVPUSH Q6H PRN PRN Reason: Nausea/Vomiting Ondansetron HCl (Zofran) Confirm Administered Dose 4 mg .ROUTE .ST-MED ONE Stop: 02/17/19 07:41 Ondansetron HCl (Zofran) 4 mg IVPUSH ONETIME PRN PRN Reason: Nausea/Vomiting Phenylephrine HCl (Phenylephrine In Ns 100 Mcg/Ml) Confirm Administered Dose 1 mg .ROUTE .STK-MED ONE Stop: 02/17/19 07:41 Propofol (Diprivan 20 Ml) Confirm Administered Dose 400 mg .ROUTE .[employer]-MED ONE Stop: 02/17/19 07:41 Tranexamic Acid (Cyklokapron) Confirm Administered Dose 1,000 mg .ROUTE .STK- MED ONE Stop: 02/17/19 06:26 Tranexamic Acid (Cyklokapron) Confirm Administered Dose 1,000 mg .ROUTE .STK- MED ONE Stop: 02/17/19 08:16 Last Admin: 02/17/19 10:18 Dose: 1,000 mg Vancomycin HCl (Vancomycin) Confirm Administered Dose 1 gm .ROUTE .STK-MED ONE Stop: 02/17/19 06:26 Vancomycin HCl (Vancomycin) Confirm Administered Dose 1 gm .ROUTE .STK-MED ONE Stop: 02/17/19 08:16 Last Admin: 02/17/19 10:13 Dose: 1 gm - Exam General: Alert, Oriented HEENT: Pupils Equal, Pupils Reactive, EOMI, Mucous Membr. Moist/[place] Neck: Supple Lungs: Clear to Auscultation, Normal Respiratory Effort Cardiovascular: Regular Rate, Regular Rhythm GI/Abdominal Exam: Normal Bowel Sounds, Soft, Non-Tender, No Organomegaly, No Distention, No Abnormal Bruit, No Mass, Pelvis Stable (Female) Exam: Normal External Exam, Normal Speculum Exam, Normal Bimanual Exam Back Exam: Normal Inspection, Full Range of Motion Extremities: Normal Inspection, Normal Range of Motion, Non-Tender, No Pedal Edema, Normal Capillary Refill Skin: Warm, Dry, Intact Wound/Incisions: Healing Well Neurological: No New Focal Deficit Psy/Mental Status: Alert, Normal Affect, Normal Mood - Problem List & Annotations (1) Hypertension SNOMED Code(s): 95555478 Code(s): I10 - ESSENTIAL (PRIMARY) HYPERTENSION Status: Acute Priority: Low Current Visit: Yes Onset Date: 02/16/19 Qualifiers: Hypertension type: essential hypertension Qualified Code(s): I10 - Essential (primary) hypertension (2) Chronic GERD SNOMED Code(s): 308208005, 793283924 Code(s): K21.9 - GASTRO-ESOPHAGEAL REFLUX DISEASE WITHOUT ESOPHAGITIS Status: Acute Priority: Low Current Visit: Yes Onset Date: 02/16/19 (3) Femoral neck fracture SNOMED Code(s): 8407419 Code(s): S72.009A - FRACTURE OF UNSP PART OF NECK OF UNSP FEMUR, INIT Status: Acute Priority: Medium Current Visit: Yes Onset Date: 02/16/19 Qualifiers: Encounter type: initial encounter Fracture type: open Laterality: left (4) Leg pain, left SNOMED Code(s): 362574333 Code(s): M79.605 - PAIN IN LEFT LEG Status: Acute Current Visit: No (5) Anemia SNOMED Code(s): 087717587 Code(s): D64.9 - ANEMIA, UNSPECIFIED Status: Acute Current Visit: Yes Qualifiers: Anemia type: other cause Other causes of anemia: other cause, not classified Qualified Code(s): D64.89 - Other specified anemias (6) Hypotension due to blood loss SNOMED Code(s): 02174901 Code(s): I95.89 - OTHER HYPOTENSION Status: Acute Priority: Low Current Visit: Yes Onset Date: 02/17/19 (7) Bradycardia associated with anesthesia SNOMED Code(s): 98395010, 33488811 Code(s): RGW7931 - Status: Acute Priority: Low Current Visit: Yes Onset Date: 02/17/19 - Problem List Review Problem List Initiated/Reviewed/Updated: Yes - My Orders Last 24 Hours: My Active Orders 02/17/19 15:50 EKG 12 Lead [EK] Routine 02/17/19 17:36 Blood Culture x2 Reflex Set [OM.PC] Stat 02/17/19 19:00 CULTURE BLOOD [BC] Stat 02/17/19 19:41 Admission Status [Patient Status] [ADT] Routine 02/18/19 06:27 DC Cooper Catheter [Urinary Catheter Removal] [RC] Per Unit Routine 02/18/19 09:00 Metoprolol Succinate [Toprol XL] 50 mg PO DAILY 02/18/19 15:00 Docusate Sodium/Sennosides [Senna Plus] 2 tab PO ONETIME ONE - Assessment Assessment:: see prog note doing well pod 2 - Plan Plan:: no new orders cont rehab and start mtv with iron
[2019-02-19] MEDS ORDERED: Diltiazem 50 MG/10 ML SDV IVPUSH ONE ×2 (04:54→08:02)
[2019-02-19] MEDS ORDERED: Sodium Chloride 0.9% 1,000 ML IV SCH (05:00)
[2019-02-19] MEDS ORDERED: Diltiazem 125 MG in Sodium Chloride 0.9% 100 ML IV SCH (05:00)
[2019-02-19] MEDS ORDERED: Sodium Chloride 0.9% 500 ML IV ONE (05:55)
[2019-02-19] MEDS: Pantoprazole 40 MG Tab.CR PO SCH (06:09)
[2019-02-19] MEDS: Rivaroxaban 10 MG Tab PO SCH (08:53)
[2019-02-19] MEDS: Metoprolol Succinate 50 MG Tab.ER PO SCH (08:53)
[2019-02-19] MEDS: Docusate Sodium 100 MG Cap PO SCH ×2 (08:54→20:08)
[2019-02-19] MEDS: Sodium Chloride 0.9% 1,000 ML IV SCH ×2 (09:11→16:47)
--- NOTE | 2019-02-19 09:22 | CR ---
Pelvis and left hip: AP view of the pelvis was obtained as well as frog-leg lateral and crosstable lateral projections of the left hip. Comparison: Previous left hip and pelvis exam of 02/16/19. Left hip prosthesis is seen. Components are aligned. Soft tissue air is noted from the surgical procedure. Bony structures are osteopenic. Degenerative change is partially visualized within the spine. Impression: 1. Satisfactory postop radiographic appearance of recently placed left hip prosthesis. 2. Other findings which are believed to be incidental. Diagnostic code #2 I agree with preliminary report from [facility], finalized on 02/17/19, 12:35 PM Central Time
--- NOTE | 2019-02-19 09:23 | CR ---
Pelvis and left hip: AP view of the pelvis was obtained as well as AP and lateral views of the left hip. Comparison: No prior hip exam is available. Displaced subcapital fracture is seen within the left hip. Right hip is unremarkable. No abnormality is seen within the pelvis. Degenerative change is noted within the visualized lower lumbar spine. Osteopenia is present. Impression: 1. Displaced subcapital fracture within the left hip. 2. Osteopenia. Diagnostic code #3
--- NOTE | 2019-02-19 16:01 | PCM.SURGPN ---
- General Info Date of Service: 02/19/19 POD#: 2 Functional Status: Reports: Pain Controlled, Tolerating Diet, Ambulating, Urinating, Incentive Spirometry, Other (The pt states she has been resting comfortable this afternoon.) - Patient Data Vitals - Most Recent: Last Vital Signs Temp 99.3 F 02/19/19 12:30 Pulse 103 H 02/19/19 08:53 Resp 18 02/19/19 12:30 BP 94/48 L 02/19/19 12:30 Pulse Ox 97 02/19/19 12:30 Weight - Most Recent: 170 lb 9.605 oz I&O - Last 24 Hours: Intake & Output 02/19/19 02/19/19 02/19/19 06:59 14:59 22:59 Intake Total 800 1340 Output Total 1200 975 Balance -400 365 Lab Results Last 24 Hrs: Laboratory Results - last 24 hr 02/19/19 02/19/19 Range/Units 04:45 09:17 Sodium 134 L (136-145) mEq/L Potassium 3.6 (3.5-5.1) mEq/L Chloride 100 (98-107) mEq/L Carbon Dioxide 22 (21-32) mEq/L Anion Gap 15.6 H (5-15) BUN 12 (7-18) mg/dL Creatinine 0.7 (0.55-1.02) mg/dL Est Cr Clr Drug Dosing 52.87 mL/min Estimated GFR (MDRD) > 60 (>60) mL/min BUN/Creatinine Ratio 17.1 (14-18) Glucose 116 H (83-115) mg/dL Calcium 8.6 (8.5-10.1) mg/dL Magnesium 1.8 (1.8-2.4) mg/dl Total Bilirubin 1.1 H (0.2-1.0) mg/dL AST 51 H (15-37) U/L ALT 22 (14-59) U/L Alkaline Phosphatase 62 (46-116) U/L Troponin I 0.056 (0.00-0.056) ng/mL Total Protein 6.1 L (6.4-8.2) g/dl Albumin 2.6 L (3.4-5.0) g/dl Globulin 3.5 gm/dL Albumin/Globulin Ratio 0.7 L (1-2) Jesús Results Last 24 Hrs: Microbiology 02/17/19 19:00 Aerobic Blood Culture - Preliminary Blood - Venous NO GROWTH AFTER 1 DAY Anaerobic Blood Culture - Final Med Orders - Current: Current Medications Hydrocodone Bitart/Acetaminophen ([place] 325-5 Mg) 1 - 2 tab PO Q4H PRN PRN Reason: Pain Last Admin: 02/18/19 23:33 Dose: 1 tab Bisacodyl (Dulcolax) 5 mg PO DAILY PRN PRN Reason: Constipation Cyclobenzaprine HCl (Flexeril) 10 mg PO TID PRN PRN Reason: Spasms Last Admin: 02/16/19 22:59 Dose: 10 mg Docusate Sodium (Colace) 100 mg PO BID [facility] Last Admin: 02/19/19 08:54 Dose: 100 mg Ondansetron HCl 8 mg/ Sodium (Chloride) 54 mls @ 108 mls/hr IV Q8H PRN PRN Reason: NAUSEA/VOMITING Diltiazem HCl 125 mg/ Sodium (Chloride) 125 mls @ 5 mls/hr IV TITRATE [facility]; Protocol Last Titration: 02/19/19 14:42 Dose: 2 mg/hr, 2 mls/hr Sodium Chloride (Normal Saline) 1,000 mls @ 50 mls/hr IV ASDIRECTED [facility] Last Admin: 02/19/19 09:11 Dose: 50 mls/hr Lorazepam (Ativan) 1 mg IVPUSH Q4H PRN PRN Reason: Nausea Last Admin: 02/17/19 03:17 Dose: 1 mg Metoprolol Succinate (Toprol Xl) 50 mg PO DAILY [facility] Last Admin: 02/19/19 08:53 Dose: 50 mg Morphine Sulfate (Morphine) 2 mg IVPUSH Q2H PRN PRN Reason: Pain Naloxone HCl (Narcan) 0.1 mg IVPUSH Q5M PRN PRN Reason: Oversedation Pantoprazole Sodium (Protonix) 40 mg PO DAILY@0700 [facility] Last Admin: 02/19/19 06:09 Dose: 40 mg Rivaroxaban (Xarelto) 10 mg PO DAILY [facility] Last Admin: 02/19/19 08:53 Dose: 10 mg Senna (Senna) 8.6 mg PO BID PRN PRN Reason: Constipation Discontinued Medications Albuterol (Proventil Neb Soln) 2.5 mg NEB ONETIME ONE Stop: 02/17/19 06:41 Last Admin: 02/17/19 06:57 Dose: 2.5 mg Albuterol (Proventil Neb Soln) 2.5 mg NEB ONETIME PRN PRN Reason: bronchodilation Bupivacaine HCl (Sensorcaine-Mpf 0.25%) Confirm Administered Dose 30 ml .ROUTE .STK-MED ONE Stop: 02/17/19 06:26 Bupivacaine HCl (Sensorcaine-Mpf 0.25%) Confirm Administered Dose 30 ml .ROUTE .STK-MED ONE Stop: 02/17/19 08:16 Last Admin: 02/17/19 10:12 Dose: 20 ml Cefazolin Sodium (Ancef) Confirm Administered Dose 2 gm .ROUTE .STK-MED ONE Stop: 02/17/19 06:26 Cefazolin Sodium (Ancef) Confirm Administered Dose 2 gm .ROUTE .STK-MED ONE Stop: 02/17/19 07:41 Last Admin: 02/17/19 10:07 Dose: 2 gm Morphine Sulfate 8 mg/Epinephrine HCl 0.3 mg/Cefuroxime Sodium 750 mg/Ketorolac Tromethamine 30 mg/Sodium Chloride 27.9 ml 0 mg .XX ONETIME ONE Stop: 02/17/19 06:48 Last Admin: 02/17/19 18:54 Dose: Not Given Morphine Sulfate 8 mg/Epinephrine HCl 0.3 mg/Cefuroxime Sodium 750 mg/Ketorolac Tromethamine 30 mg/Sodium Chloride 27.9 ml 0 mg .XX ONETIME ONE Stop: 02/17/19 08:16 Last Admin: 02/17/19 10:12 Dose: 788.3 mg Diltiazem HCl (Cardizem) 10 mg IVPUSH ONETIME ONE Stop: 02/19/19 04:55 Last Admin: 02/19/19 05:04 Dose: 10 mg Diltiazem HCl (Cardizem) 5 mg IVPUSH ONETIME ONE Stop: 02/19/19 08:03 Last Admin: 02/19/19 08:19 Dose: 5 mg Diphenhydramine HCl (Benadryl) 25 mg IVPUSH Q6H PRN PRN Reason: pruritis Ephedrine Sulfate (Ephedrine Sulfate) 5 mg IVPUSH ASDIRECTED PRN PRN Reason: Hypotension Fentanyl (Sublimaze) Confirm Administered Dose 100 mcg .ROUTE .STK-MED ONE Stop: 02/17/19 07:41 Fentanyl (Sublimaze) 50 mcg IVPUSH Q5M PRN PRN Reason: Pain Hydromorphone HCl (Dilaudid) 0.5 mg IVPUSH Q15M PRN PRN Reason: Pain (severe 7-10) Lactated Ringer's (Ringers, Lactated) 1,000 mls @ 100 mls/hr IV .BOLUS ONE Stop: 02/16/19 22:27 Last Admin: 02/16/19 12:36 Dose: 100 mls/hr Promethazine HCl 25 mg/ Sodium (Chloride) 51 mls @ 100 mls/hr IV ONETIME ONE Stop: 02/16/19 17:25 Last Admin: 02/16/19 17:55 Dose: 100 mls/hr Magnesium Sulfate/Dextrose 1 (gm/ Premix) 100 mls @ 100 mls/hr IV ONETIME ONE Stop: 02/16/19 18:12 Last Admin: 02/16/19 20:07 Dose: 100 mls/hr Sodium Chloride (Normal Saline) Confirm Administered Dose 50 mls @ as directed .ROUTE .STK-MED ONE Stop: 02/16/19 17:38 Last Admin: 02/16/19 20:34 Dose: Not Given Cefazolin Sodium/Dextrose 2 gm (/ Premix) 50 mls @ 100 mls/hr IV Q8H [facility] Stop: 02/18/19 09:29 Last Admin: 02/18/19 09:04 Dose: 100 mls/hr Lidocaine HCl (Xylocaine-Mpf 1%) Confirm Administered Dose 10 mls @ as directed .ROUTE .STK-MED ONE Stop: 02/17/19 07:41 Sodium Chloride (Normal Saline) Confirm Administered Dose 2,000 mls @ as directed .ROUTE .STK-MED ONE Stop: 02/17/19 07:41 Phenylephrine HCl 1 mg/ Sodium (Chloride) 10.1 mls @ 1 mls/sec IV TITRATE [facility]; Protocol Sodium Chloride (Normal Saline) 500 mls @ 999 mls/hr IV .BOLUS ONE Stop: 02/17/19 16:20 Last Admin: 02/17/19 16:05 Dose: 999 mls/hr Sodium Chloride (Normal Saline) 500 mls @ 999 mls/hr IV .BOLUS ONE Stop: 02/17/19 18:07 Last Admin: 02/17/19 17:53 Dose: 999 mls/hr Sodium Chloride (Normal Saline) 1,000 mls @ 125 mls/hr IV ASDIRECTED [facility] Last Admin: 02/19/19 05:05 Dose: 75 mls/hr Sodium Chloride (Normal Saline) 500 mls @ 500 mls/hr IV .BOLUS ONE Stop: 02/19/19 06:54 Last Admin: 02/19/19 06:02 Dose: 500 mls/hr Iodine (Iodine 2% Mild Tincture) Confirm Administered Dose 30 ml .ROUTE .STK- MED ONE Stop: 02/17/19 06:26 Iodine (Iodine 2% Mild Tincture) Confirm Administered Dose 30 ml .ROUTE .STK- MED ONE Stop: 02/17/19 08:16 Last Admin: 02/17/19 10:05 Dose: 18 ml Ketamine HCl (Ketalar) Confirm Administered Dose 500 mg .ROUTE .STK-MED ONE Stop: 02/17/19 07:42 Metoprolol Succinate (Toprol Xl) 50 mg PO DAILY [facility] Metoprolol Succinate (Toprol Xl) 50 mg PO ONETIME ONE Stop: 02/17/19 06:46 Last Admin: 02/17/19 06:49 Dose: 50 mg Midazolam HCl (Versed 1 Mg/Ml) Confirm Administered Dose 2 mg .ROUTE .STK-MED ONE Stop: 02/17/19 07:42 Midazolam HCl (Versed 1 Mg/Ml) Confirm Administered Dose 2 mg .ROUTE .STK-MED ONE Stop: 02/17/19 09:44 Ondansetron HCl (Zofran) 4 mg IVPUSH ONETIME ONE Stop: 02/16/19 12:28 Last Admin: 02/16/19 12:38 Dose: 4 mg Ondansetron HCl (Zofran) 4 mg IVPUSH ONETIME ONE Stop: 02/16/19 13:23 Last Admin: 02/16/19 13:32 Dose: 4 mg Ondansetron HCl (Zofran) 4 mg IVPUSH Q6H PRN PRN Reason: Nausea/Vomiting Ondansetron HCl (Zofran) Confirm Administered Dose 4 mg .ROUTE .STK-MED ONE Stop: 02/17/19 07:41 Ondansetron HCl (Zofran) 4 mg IVPUSH ONETIME PRN PRN Reason: Nausea/Vomiting Phenylephrine HCl (Phenylephrine In Ns 100 Mcg/Ml) Confirm Administered Dose 1 mg .ROUTE .STK-MED ONE Stop: 02/17/19 07:41 Propofol (Diprivan 20 Ml) Confirm Administered Dose 400 mg .ROUTE .STK-MED ONE Stop: 02/17/19 07:41 Scopolamine (Transderm-Scop) 1.5 mg TRDERM ONETIME PRN PRN Reason: PONV Senna/Docusate Sodium (Senna Plus) 2 tab PO ONETIME ONE Stop: 02/18/19 15:01 Last Admin: 02/18/19 15:33 Dose: 2 tab Tranexamic Acid (Cyklokapron) Confirm Administered Dose 1,000 mg .ROUTE .STK- MED ONE Stop: 02/17/19 06:26 Tranexamic Acid (Cyklokapron) Confirm Administered Dose 1,000 mg .ROUTE .STK- MED ONE Stop: 02/17/19 08:16 Last Admin: 02/17/19 10:18 Dose: 1,000 mg Vancomycin HCl (Vancomycin) Confirm Administered Dose 1 gm .ROUTE .STK-MED ONE Stop: 02/17/19 06:26 Vancomycin HCl (Vancomycin) Confirm Administered Dose 1 gm .ROUTE .STK-MED ONE Stop: 02/17/19 08:16 Last Admin: 02/17/19 10:13 Dose: 1 gm - Exam Wound/Incisions: Dressing Dry and Intact General: Alert, Cooperative, No Acute Distress Lungs: Normal Respiratory Effort Extremities: Other (Left thigh soft, nontender. Mia's negative for LLE. NVS intact for LLE.) - Problem List Review Problem List Initiated/Reviewed/Updated: Yes - My Orders Last 24 Hours: Active Orders 24 hr Category Date Time Status Patient Status [ADT] Routine ADT 02/19/19 05:03 Active EKG Documentation Completion [RC] ASDIRECTED Care 02/19/19 08:39 Active CBC WITH AUTO DIFF [HEME] AM Lab 02/20/19 05:11 Ordered CBC WITH AUTO DIFF [HEME] AM Lab 02/21/19 05:11 Ordered CBC WITH AUTO DIFF [HEME] AM Lab 02/22/19 05:11 Ordered CBC WITH AUTO DIFF [HEME] AM Lab 02/23/19 05:11 Ordered CBC WITH AUTO DIFF [HEME] AM Lab 02/24/19 05:11 Ordered CMP [COMPREHENSIVE METABOLIC PN,CMP] [CHEM] AM Lab 02/20/19 05:11 Ordered CMP [COMPREHENSIVE METABOLIC PN,CMP] [CHEM] AM Lab 02/21/19 05:11 Ordered CMP [COMPREHENSIVE METABOLIC PN,CMP] [CHEM] AM Lab 02/22/19 05:11 Ordered CMP [COMPREHENSIVE METABOLIC PN,CMP] [CHEM] AM Lab 02/23/19 05:11 Ordered CMP [COMPREHENSIVE METABOLIC PN,CMP] [CHEM] AM Lab 02/24/19 05:11 Ordered MAGNESIUM [CHEM] AM Lab 02/20/19 05:11 Ordered MAGNESIUM [CHEM] AM Lab 02/21/19 05:11 Ordered MAGNESIUM [CHEM] AM Lab 02/22/19 05:11 Ordered MAGNESIUM [CHEM] AM Lab 02/23/19 05:11 Ordered MAGNESIUM [CHEM] AM Lab 02/24/19 05:11 Ordered Diltiazem 125 mg Med 02/19/19 05:00 Active Sodium Chloride 0.9% [Normal Saline] 100 ml IV TITRATE Sodium Chloride 0.9% [Normal Saline] 1,000 ml Med 02/19/19 09:15 Active IV ASDIRECTED EKG 12 Lead [EK] Routine Ther 02/19/19 04:18 Ordered EKG 12 Lead [EK] Stat Ther 02/19/19 08:38 Ordered Medication Orders Hydrocodone Bitart/Acetaminophen ([place] 325-5 Mg) 1 - 2 tab PO Q4H PRN PRN Reason: Pain Last Admin: 02/18/19 23:33 Dose: 1 tab Admin: 02/18/19 15:33 Dose: 1 tab Admin: 02/18/19 11:26 Dose: 1 tab Admin: 02/18/19 06:14 Dose: 1 tab Admin: 02/17/19 14:35 Dose: 1 tab Bisacodyl (Dulcolax) 5 mg PO DAILY PRN PRN Reason: Constipation Cyclobenzaprine HCl (Flexeril) 10 mg PO TID PRN PRN Reason: Spasms Last Admin: 02/16/19 22:59 Dose: 10 mg Docusate Sodium (Colace) 100 mg PO BID [facility] Last Admin: 02/19/19 08:54 Dose: 100 mg Admin: 02/18/19 20:32 Dose: 100 mg Admin: 02/18/19 09:06 Dose: 100 mg Admin: 02/17/19 20:37 Dose: 100 mg Ondansetron HCl 8 mg/ Sodium (Chloride) 54 mls @ 108 mls/hr IV Q8H PRN PRN Reason: NAUSEA/VOMITING Diltiazem HCl 125 mg/ Sodium (Chloride) 125 mls @ 5 mls/hr IV TITRATE [facility]; Protocol Last Titration: 02/19/19 14:42 Dose: 2 mg/hr, 2 mls/hr Titration: 02/19/19 13:13 Dose: 5 mg/hr, 5 mls/hr Titration: 02/19/19 07:37 Dose: 10 mg/hr, 10 mls/hr Admin: 02/19/19 05:05 Dose: 5 mg/hr, 5 mls/hr Sodium Chloride (Normal Saline) 1,000 mls @ 50 mls/hr IV ASDIRECTED [facility] Last Admin: 02/19/19 09:11 Dose: 50 mls/hr Lorazepam (Ativan) 1 mg IVPUSH Q4H PRN PRN Reason: Nausea Last Admin: 02/17/19 03:17 Dose: 1 mg Metoprolol Succinate (Toprol Xl) 50 mg PO DAILY [facility] Last Admin: 02/19/19 08:53 Dose: 50 mg Admin: 02/18/19 12:44 Dose: 50 mg Morphine Sulfate (Morphine) 2 mg IVPUSH Q2H PRN PRN Reason: Pain Naloxone HCl (Narcan) 0.1 mg IVPUSH Q5M PRN PRN Reason: Oversedation Pantoprazole Sodium (Protonix) 40 mg PO DAILY@0700 [facility] Last Admin: 02/19/19 06:09 Dose: 40 mg Admin: 02/18/19 06:14 Dose: 40 mg Admin: 02/17/19 06:49 Dose: 40 mg Rivaroxaban (Xarelto) 10 mg PO DAILY [facility] Last Admin: 02/19/19 08:53 Dose: 10 mg Admin: 02/18/19 09:06 Dose: 10 mg Senna (Senna) 8.6 mg PO BID PRN PRN Reason: Constipation - Assessment Assessment (Free Text/Narrative):: POD#2 - left hip endoprosthesis - Plan Plan (Free Text/Narrative):: 1. Xarelto daily, SCDs, TEDs. 2. Continue with PT and OT. WBAT LLE. 3. Suspect discharge to [facility] for continued therapy. 4. Further orders per Hospitalist service. The pt's case was discussed with Dr. Partida.
--- NOTE | 2019-02-19 16:17 | PCM.PN ---
- General Info Date of Service: 02/19/19 Admission Dx/Problem (Free Text): Admission Diagnosis/Problem Admission Diagnosis/Problem Hip fracture requiring operative repair Subjective Update: patient developed A. fib with rapid ventricular response overnight. She was transferred to the ICU and started on a Cardizem drip. She had episodes of hypotension requiring IV boluses. Patient has improved on the Cardizem drip and has decreased to 2 mg an hour. We continued to struggle with blood pressures that are round 85-90 systolic. Functional Status: Reports: Pain Controlled - Review of Systems General: Reports: No Symptoms HEENT: Reports: No Symptoms Pulmonary: Reports: No Symptoms Cardiovascular: Reports: No Symptoms Gastrointestinal: Reports: No Symptoms - Patient Data Vitals - Most Recent: Last Vital Signs Temp 99.3 F 02/19/19 12:30 Pulse 103 H 02/19/19 08:53 Resp 18 02/19/19 12:30 BP 94/48 L 02/19/19 12:30 Pulse Ox 97 02/19/19 12:30 Weight - Most Recent: 170 lb 9.605 oz I&O - Last 24 Hours: Intake & Output 02/19/19 02/19/19 02/19/19 06:59 14:59 22:59 Intake Total 800 1340 Output Total 1200 975 Balance -400 365 Lab Results Last 24 Hours: Laboratory Results - last 24 hr 02/19/19 02/19/19 Range/Units 04:45 09:17 Sodium 134 L (136-145) mEq/L Potassium 3.6 (3.5-5.1) mEq/L Chloride 100 (98-107) mEq/L Carbon Dioxide 22 (21-32) mEq/L Anion Gap 15.6 H (5-15) BUN 12 (7-18) mg/dL Creatinine 0.7 (0.55-1.02) mg/dL Est Cr Clr Drug Dosing 52.87 mL/min Estimated GFR (MDRD) > 60 (>60) mL/min BUN/Creatinine Ratio 17.1 (14-18) Glucose 116 H (83-115) mg/dL Calcium 8.6 (8.5-10.1) mg/dL Magnesium 1.8 (1.8-2.4) mg/dl Total Bilirubin 1.1 H (0.2-1.0) mg/dL AST 51 H (15-37) U/L ALT 22 (14-59) U/L Alkaline Phosphatase 62 (46-116) U/L Troponin I 0.056 (0.00-0.056) ng/mL Total Protein 6.1 L (6.4-8.2) g/dl Albumin 2.6 L (3.4-5.0) g/dl Globulin 3.5 gm/dL Albumin/Globulin Ratio 0.7 L (1-2) Jesús Results Last 24 Hours: Microbiology 02/17/19 19:00 Aerobic Blood Culture - Preliminary Blood - Venous NO GROWTH AFTER 1 DAY Anaerobic Blood Culture - Final Med Orders - Current: Current Medications Hydrocodone Bitart/Acetaminophen ([place] 325-5 Mg) 1 - 2 tab PO Q4H PRN PRN Reason: Pain Last Admin: 02/18/19 23:33 Dose: 1 tab Bisacodyl (Dulcolax) 5 mg PO DAILY PRN PRN Reason: Constipation Cyclobenzaprine HCl (Flexeril) 10 mg PO TID PRN PRN Reason: Spasms Last Admin: 02/16/19 22:59 Dose: 10 mg Diltiazem HCl (Cardizem) 30 mg PO Q6HR [facility] Docusate Sodium (Colace) 100 mg PO BID [facility] Last Admin: 02/19/19 08:54 Dose: 100 mg Ondansetron HCl 8 mg/ Sodium (Chloride) 54 mls @ 108 mls/hr IV Q8H PRN PRN Reason: NAUSEA/VOMITING Diltiazem HCl 125 mg/ Sodium (Chloride) 125 mls @ 5 mls/hr IV TITRATE [facility]; Protocol Last Titration: 02/19/19 14:42 Dose: 2 mg/hr, 2 mls/hr Sodium Chloride (Normal Saline) 1,000 mls @ 50 mls/hr IV ASDIRECTED [facility] Last Admin: 02/19/19 09:11 Dose: 50 mls/hr Lorazepam (Ativan) 1 mg IVPUSH Q4H PRN PRN Reason: Nausea Last Admin: 02/17/19 03:17 Dose: 1 mg Metoprolol Succinate (Toprol Xl) 50 mg PO DAILY [facility] Last Admin: 02/19/19 08:53 Dose: 50 mg Morphine Sulfate (Morphine) 2 mg IVPUSH Q2H PRN PRN Reason: Pain Naloxone HCl (Narcan) 0.1 mg IVPUSH Q5M PRN PRN Reason: Oversedation Pantoprazole Sodium (Protonix) 40 mg PO DAILY@0700 [facility] Last Admin: 02/19/19 06:09 Dose: 40 mg Rivaroxaban (Xarelto) 10 mg PO DAILY [facility] Last Admin: 02/19/19 08:53 Dose: 10 mg Senna (Senna) 8.6 mg PO BID PRN PRN Reason: Constipation Discontinued Medications Albuterol (Proventil Neb Soln) 2.5 mg NEB ONETIME ONE Stop: 02/17/19 06:41 Last Admin: 02/17/19 06:57 Dose: 2.5 mg Albuterol (Proventil Neb Soln) 2.5 mg NEB ONETIME PRN PRN Reason: bronchodilation Bupivacaine HCl (Sensorcaine-Mpf 0.25%) Confirm Administered Dose 30 ml .ROUTE .STK-MED ONE Stop: 02/17/19 06:26 Bupivacaine HCl (Sensorcaine-Mpf 0.25%) Confirm Administered Dose 30 ml .ROUTE .STK-MED ONE Stop: 02/17/19 08:16 Last Admin: 02/17/19 10:12 Dose: 20 ml Cefazolin Sodium (Ancef) Confirm Administered Dose 2 gm .ROUTE .STK-MED ONE Stop: 02/17/19 06:26 Cefazolin Sodium (Ancef) Confirm Administered Dose 2 gm .ROUTE .STK-MED ONE Stop: 02/17/19 07:41 Last Admin: 02/17/19 10:07 Dose: 2 gm Morphine Sulfate 8 mg/Epinephrine HCl 0.3 mg/Cefuroxime Sodium 750 mg/Ketorolac Tromethamine 30 mg/Sodium Chloride 27.9 ml 0 mg .XX ONETIME ONE Stop: 02/17/19 06:48 Last Admin: 02/17/19 18:54 Dose: Not Given Morphine Sulfate 8 mg/Epinephrine HCl 0.3 mg/Cefuroxime Sodium 750 mg/Ketorolac Tromethamine 30 mg/Sodium Chloride 27.9 ml 0 mg .XX ONETIME ONE Stop: 02/17/19 08:16 Last Admin: 02/17/19 10:12 Dose: 788.3 mg Diltiazem HCl (Cardizem) 10 mg IVPUSH ONETIME ONE Stop: 02/19/19 04:55 Last Admin: 02/19/19 05:04 Dose: 10 mg Diltiazem HCl (Cardizem) 5 mg IVPUSH ONETIME ONE Stop: 02/19/19 08:03 Last Admin: 02/19/19 08:19 Dose: 5 mg Diphenhydramine HCl (Benadryl) 25 mg IVPUSH Q6H PRN PRN Reason: pruritis Ephedrine Sulfate (Ephedrine Sulfate) 5 mg IVPUSH ASDIRECTED PRN PRN Reason: Hypotension Fentanyl (Sublimaze) Confirm Administered Dose 100 mcg .ROUTE .STK-MED ONE Stop: 02/17/19 07:41 Fentanyl (Sublimaze) 50 mcg IVPUSH Q5M PRN PRN Reason: Pain Hydromorphone HCl (Dilaudid) 0.5 mg IVPUSH Q15M PRN PRN Reason: Pain (severe 7-10) Lactated Ringer's (Ringers, Lactated) 1,000 mls @ 100 mls/hr IV .BOLUS ONE Stop: 02/16/19 22:27 Last Admin: 02/16/19 12:36 Dose: 100 mls/hr Promethazine HCl 25 mg/ Sodium (Chloride) 51 mls @ 100 mls/hr IV ONETIME ONE Stop: 02/16/19 17:25 Last Admin: 02/16/19 17:55 Dose: 100 mls/hr Magnesium Sulfate/Dextrose 1 (gm/ Premix) 100 mls @ 100 mls/hr IV ONETIME ONE Stop: 02/16/19 18:12 Last Admin: 02/16/19 20:07 Dose: 100 mls/hr Sodium Chloride (Normal Saline) Confirm Administered Dose 50 mls @ as directed .ROUTE .STK-MED ONE Stop: 02/16/19 17:38 Last Admin: 02/16/19 20:34 Dose: Not Given Cefazolin Sodium/Dextrose 2 gm (/ Premix) 50 mls @ 100 mls/hr IV Q8H [facility] Stop: 02/18/19 09:29 Last Admin: 02/18/19 09:04 Dose: 100 mls/hr Lidocaine HCl (Xylocaine-Mpf 1%) Confirm Administered Dose 10 mls @ as directed .ROUTE .STK-MED ONE Stop: 02/17/19 07:41 Sodium Chloride (Normal Saline) Confirm Administered Dose 2,000 mls @ as directed .ROUTE .STK-MED ONE Stop: 02/17/19 07:41 Phenylephrine HCl 1 mg/ Sodium (Chloride) 10.1 mls @ 1 mls/sec IV TITRATE [facility]; Protocol Sodium Chloride (Normal Saline) 500 mls @ 999 mls/hr IV .BOLUS ONE Stop: 02/17/19 16:20 Last Admin: 02/17/19 16:05 Dose: 999 mls/hr Sodium Chloride (Normal Saline) 500 mls @ 999 mls/hr IV .BOLUS ONE Stop: 02/17/19 18:07 Last Admin: 02/17/19 17:53 Dose: 999 mls/hr Sodium Chloride (Normal Saline) 1,000 mls @ 125 mls/hr IV ASDIRECTED [facility] Last Admin: 02/19/19 05:05 Dose: 75 mls/hr Sodium Chloride (Normal Saline) 500 mls @ 500 mls/hr IV .BOLUS ONE Stop: 02/19/19 06:54 Last Admin: 02/19/19 06:02 Dose: 500 mls/hr Iodine (Iodine 2% Mild Tincture) Confirm Administered Dose 30 ml .ROUTE .STK- MED ONE Stop: 02/17/19 06:26 Iodine (Iodine 2% Mild Tincture) Confirm Administered Dose 30 ml .ROUTE .STK- MED ONE Stop: 02/17/19 08:16 Last Admin: 02/17/19 10:05 Dose: 18 ml Ketamine HCl (Ketalar) Confirm Administered Dose 500 mg .ROUTE .STK-MED ONE Stop: 02/17/19 07:42 Metoprolol Succinate (Toprol Xl) 50 mg PO DAILY [facility] Metoprolol Succinate (Toprol Xl) 50 mg PO ONETIME ONE Stop: 02/17/19 06:46 Last Admin: 02/17/19 06:49 Dose: 50 mg Midazolam HCl (Versed 1 Mg/Ml) Confirm Administered Dose 2 mg .ROUTE .STK-MED ONE Stop: 02/17/19 07:42 Midazolam HCl (Versed 1 Mg/Ml) Confirm Administered Dose 2 mg .ROUTE .STK-MED ONE Stop: 02/17/19 09:44 Ondansetron HCl (Zofran) 4 mg IVPUSH ONETIME ONE Stop: 02/16/19 12:28 Last Admin: 02/16/19 12:38 Dose: 4 mg Ondansetron HCl (Zofran) 4 mg IVPUSH ONETIME ONE Stop: 02/16/19 13:23 Last Admin: 02/16/19 13:32 Dose: 4 mg Ondansetron HCl (Zofran) 4 mg IVPUSH Q6H PRN PRN Reason: Nausea/Vomiting Ondansetron HCl (Zofran) Confirm Administered Dose 4 mg .ROUTE .STK-MED ONE Stop: 02/17/19 07:41 Ondansetron HCl (Zofran) 4 mg IVPUSH ONETIME PRN PRN Reason: Nausea/Vomiting Phenylephrine HCl (Phenylephrine In Ns 100 Mcg/Ml) Confirm Administered Dose 1 mg .ROUTE .STK-MED ONE Stop: 02/17/19 07:41 Propofol (Diprivan 20 Ml) Confirm Administered Dose 400 mg .ROUTE .STK-MED ONE Stop: 02/17/19 07:41 Scopolamine (Transderm-Scop) 1.5 mg TRDERM ONETIME PRN PRN Reason: PONV Senna/Docusate Sodium (Senna Plus) 2 tab PO ONETIME ONE Stop: 02/18/19 15:01 Last Admin: 02/18/19 15:33 Dose: 2 tab Tranexamic Acid (Cyklokapron) Confirm Administered Dose 1,000 mg .ROUTE .STK- MED ONE Stop: 02/17/19 06:26 Tranexamic Acid (Cyklokapron) Confirm Administered Dose 1,000 mg .ROUTE .STK- MED ONE Stop: 02/17/19 08:16 Last Admin: 02/17/19 10:18 Dose: 1,000 mg Vancomycin HCl (Vancomycin) Confirm Administered Dose 1 gm .ROUTE .STK-MED ONE Stop: 02/17/19 06:26 Vancomycin HCl (Vancomycin) Confirm Administered Dose 1 gm .ROUTE .STK-MED ONE Stop: 02/17/19 08:16 Last Admin: 02/17/19 10:13 Dose: 1 gm - Exam Quality Assessment: Supplemental Oxygen General: Alert, Oriented HEENT: Pupils Equal Neck: Supple Lungs: Clear to Auscultation, Normal Respiratory Effort Cardiovascular: Irregular Rhythm GI/Abdominal Exam: Normal Bowel Sounds, Soft, Non-Tender, No Organomegaly, No Distention Extremities: Normal Inspection, Normal Range of Motion, Non-Tender, No Pedal Edema Skin: Warm, Dry, Intact Psy/Mental Status: Alert, Normal Affect, Normal Mood - Problem List Review Problem List Initiated/Reviewed/Updated: Yes - My Orders Last 24 Hours: My Active Orders 02/19/19 08:38 EKG 12 Lead [EK] Stat 02/19/19 08:39 EKG Documentation Completion [RC] ASDIRECTED 02/19/19 09:15 Sodium Chloride 0.9% [Normal Saline] 1,000 ml IV ASDIRECTED 02/19/19 16:08 Diltiazem IR [Cardizem] 30 mg PO Q6HR 02/20/19 05:11 CBC WITH AUTO DIFF [HEME] AM CMP [COMPREHENSIVE METABOLIC PN,CMP] [CHEM] AM MAGNESIUM [CHEM] AM 02/21/19 05:11 CBC WITH AUTO DIFF [HEME] AM CMP [COMPREHENSIVE METABOLIC PN,CMP] [CHEM] AM MAGNESIUM [CHEM] AM 02/22/19 05:11 CBC WITH AUTO DIFF [HEME] AM CMP [COMPREHENSIVE METABOLIC PN,CMP] [CHEM] AM MAGNESIUM [CHEM] AM 02/23/19 05:11 CBC WITH AUTO DIFF [HEME] AM CMP [COMPREHENSIVE METABOLIC PN,CMP] [CHEM] AM MAGNESIUM [CHEM] AM 02/24/19 05:11 CBC WITH AUTO DIFF [HEME] AM CMP [COMPREHENSIVE METABOLIC PN,CMP] [CHEM] AM MAGNESIUM [CHEM] AM - Plan Plan:: Assessment * postop day 2 left endoprosthesis * New-onset A. fib with RVR * History of anemia, hypertension, chronic GERD Plan * Admit to ICU * Add Cardizem IR 30 mg every 6 hours * Stop Cardizem drip * Continue metoprolol * CBC, CMP, and mag in the morning * VTE prophylaxis withdrawal toe, but will need adjuvant regulation secondary to her A. fib. Plan to increase to 20 mg by mouth daily when okayed by surgery and hemoglobin is stable. * CODE STATUS: Full code
[2019-02-19] MEDS: Diltiazem IR 30 MG Tab PO SCH (17:30)
[2019-02-19] MEDS: Cyclobenzaprine 10 MG Tab PO PRN (20:09)
[2019-02-20] MEDS: Diltiazem IR 30 MG Tab PO SCH ×4 (00:07→17:18)
[2019-02-20] MEDS: Pantoprazole 40 MG Tab.CR PO SCH (06:37)
--- NOTE | 2019-02-20 07:58 | PCM.SURGPN ---
- General Info Date of Service: 02/20/19 POD#: 3 Functional Status: Reports: Pain Controlled, Tolerating Diet, Ambulating, Urinating, Incentive Spirometry, Other (The pt states she is doing well.) - Patient Data Vitals - Most Recent: Last Vital Signs Temp 98.1 F 02/20/19 04:00 Pulse 103 H 02/19/19 08:53 Resp 19 02/20/19 04:00 BP 102/62 02/20/19 04:00 Pulse Ox 95 02/20/19 04:00 Weight - Most Recent: 178 lb 6.4 oz I&O - Last 24 Hours: Intake & Output 02/19/19 02/20/19 02/20/19 22:59 06:59 14:59 Intake Total 1553 1105 Output Total 1200 300 800 Balance 353 805 -800 Lab Results Last 24 Hrs: Laboratory Results - last 24 hr 02/19/19 02/20/19 02/20/19 Range/Units 09:17 04:25 04:25 WBC 9.14 (3.98-10.04) K/mm3 RBC 3.27 L (3.98-5.22) M/mm3 Hgb 9.7 L (11.2-15.7) gm/L Hct 29.4 L (34.1-44.9) % MCV 89.9 (79.4-94.8) fl MCH 29.7 (25.6-32.2) pg MCHC 33.0 (32.2-35.5) g/dl RDW Std Deviation 44.7 (36.4-46.3) fL Plt Count 152 L (182-369) K/mm3 MPV 11.1 (9.4-12.3) fl Neut % (Auto) 64.7 (34.0-71.1) % Lymph % (Auto) 20.9 (19.3-51.7) % Smyth % (Auto) 12.9 H (4.7-12.5) % Eos % (Auto) 1.1 (0.7-5.8) Baso % (Auto) 0.2 (0.1-1.2) % Neut # (Auto) 5.91 (1.56-6.13) K/mm3 Lymph # (Auto) 1.91 (1.18-3.74) K/mm3 Smyth # (Auto) 1.18 H (0.24-0.36) K/mm3 Eos # (Auto) 0.10 (0.04-0.36) K/mm3 Baso # (Auto) 0.02 (0.01-0.08) K/mm3 Sodium 138 (136-145) mEq/L Potassium 3.5 (3.5-5.1) mEq/L Chloride 104 (98-107) mEq/L Carbon Dioxide 22 (21-32) mEq/L Anion Gap 15.5 H (5-15) BUN 9 (7-18) mg/dL Creatinine 0.6 (0.55-1.02) mg/dL Est Cr Clr Drug Dosing 61.58 mL/min Estimated GFR (MDRD) > 60 (>60) mL/min BUN/Creatinine Ratio 15.0 (14-18) Glucose 109 (83-115) mg/dL Calcium 8.1 L (8.5-10.1) mg/dL Magnesium 1.7 L (1.8-2.4) mg/dl Total Bilirubin 1.0 (0.2-1.0) mg/dL AST 42 H (15-37) U/L ALT 22 (14-59) U/L Alkaline Phosphatase 65 (46-116) U/L Troponin I 0.056 (0.00-0.056) ng/mL Total Protein 5.6 L (6.4-8.2) g/dl Albumin 2.2 L (3.4-5.0) g/dl Globulin 3.4 gm/dL Albumin/Globulin Ratio 0.7 L (1-2) Jesús Results Last 24 Hrs: Microbiology 02/17/19 19:00 Aerobic Blood Culture - Preliminary Blood - Venous NO GROWTH AFTER 2 DAYS Anaerobic Blood Culture - Final Med Orders - Current: Current Medications Hydrocodone Bitart/Acetaminophen (Humble 325-5 Mg) 1 - 2 tab PO Q4H PRN PRN Reason: Pain Last Admin: 02/18/19 23:33 Dose: 1 tab Bisacodyl (Dulcolax) 5 mg PO DAILY PRN PRN Reason: Constipation Last Admin: 02/19/19 20:09 Dose: 5 mg Cyclobenzaprine HCl (Flexeril) 10 mg PO TID PRN PRN Reason: Spasms Last Admin: 02/19/19 20:09 Dose: 10 mg Diltiazem HCl (Cardizem) 30 mg PO Q6HR [facility] Last Admin: 02/20/19 06:37 Dose: 30 mg Docusate Sodium (Colace) 100 mg PO BID [facility] Last Admin: 02/19/19 20:08 Dose: 100 mg Ondansetron HCl 8 mg/ Sodium (Chloride) 54 mls @ 108 mls/hr IV Q8H PRN PRN Reason: NAUSEA/VOMITING Diltiazem HCl 125 mg/ Sodium (Chloride) 125 mls @ 5 mls/hr IV TITRATE [facility]; Protocol Last Titration: 02/19/19 14:42 Dose: 2 mg/hr, 2 mls/hr Sodium Chloride (Normal Saline) 1,000 mls @ 50 mls/hr IV ASDIRECTED [facility] Last Admin: 02/19/19 16:47 Dose: 50 mls/hr Lorazepam (Ativan) 1 mg IVPUSH Q4H PRN PRN Reason: Nausea Last Admin: 02/17/19 03:17 Dose: 1 mg Metoprolol Succinate (Toprol Xl) 50 mg PO DAILY [facility] Last Admin: 02/19/19 08:53 Dose: 50 mg Morphine Sulfate (Morphine) 2 mg IVPUSH Q2H PRN PRN Reason: Pain Naloxone HCl (Narcan) 0.1 mg IVPUSH Q5M PRN PRN Reason: Oversedation Pantoprazole Sodium (Protonix) 40 mg PO DAILY@0700 [facility] Last Admin: 02/20/19 06:37 Dose: 40 mg Rivaroxaban (Xarelto) 10 mg PO DAILY [facility] Last Admin: 02/19/19 08:53 Dose: 10 mg Senna (Senna) 8.6 mg PO BID PRN PRN Reason: Constipation Discontinued Medications Albuterol (Proventil Neb Soln) 2.5 mg NEB ONETIME ONE Stop: 02/17/19 06:41 Last Admin: 02/17/19 06:57 Dose: 2.5 mg Albuterol (Proventil Neb Soln) 2.5 mg NEB ONETIME PRN PRN Reason: bronchodilation Bupivacaine HCl (Sensorcaine-Mpf 0.25%) Confirm Administered Dose 30 ml .ROUTE .STK-MED ONE Stop: 02/17/19 06:26 Bupivacaine HCl (Sensorcaine-Mpf 0.25%) Confirm Administered Dose 30 ml .ROUTE .STK-MED ONE Stop: 02/17/19 08:16 Last Admin: 02/17/19 10:12 Dose: 20 ml Cefazolin Sodium (Ancef) Confirm Administered Dose 2 gm .ROUTE .STK-MED ONE Stop: 02/17/19 06:26 Cefazolin Sodium (Ancef) Confirm Administered Dose 2 gm .ROUTE .[facility]-MED ONE Stop: 02/17/19 07:41 Last Admin: 02/17/19 10:07 Dose: 2 gm Morphine Sulfate 8 mg/Epinephrine HCl 0.3 mg/Cefuroxime Sodium 750 mg/Ketorolac Tromethamine 30 mg/Sodium Chloride 27.9 ml 0 mg .XX ONETIME ONE Stop: 02/17/19 06:48 Last Admin: 02/17/19 18:54 Dose: Not Given Morphine Sulfate 8 mg/Epinephrine HCl 0.3 mg/Cefuroxime Sodium 750 mg/Ketorolac Tromethamine 30 mg/Sodium Chloride 27.9 ml 0 mg .XX ONETIME ONE Stop: 02/17/19 08:16 Last Admin: 02/17/19 10:12 Dose: 788.3 mg Diltiazem HCl (Cardizem) 10 mg IVPUSH ONETIME ONE Stop: 02/19/19 04:55 Last Admin: 02/19/19 05:04 Dose: 10 mg Diltiazem HCl (Cardizem) 5 mg IVPUSH ONETIME ONE Stop: 02/19/19 08:03 Last Admin: 02/19/19 08:19 Dose: 5 mg Diphenhydramine HCl (Benadryl) 25 mg IVPUSH Q6H PRN PRN Reason: pruritis Ephedrine Sulfate (Ephedrine Sulfate) 5 mg IVPUSH ASDIRECTED PRN PRN Reason: Hypotension Fentanyl (Sublimaze) Confirm Administered Dose 100 mcg .ROUTE .ST-MED ONE Stop: 02/17/19 07:41 Fentanyl (Sublimaze) 50 mcg IVPUSH Q5M PRN PRN Reason: Pain Hydromorphone HCl (Dilaudid) 0.5 mg IVPUSH Q15M PRN PRN Reason: Pain (severe 7-10) Lactated Ringer's (Ringers, Lactated) 1,000 mls @ 100 mls/hr IV .BOLUS ONE Stop: 02/16/19 22:27 Last Admin: 02/16/19 12:36 Dose: 100 mls/hr Promethazine HCl 25 mg/ Sodium (Chloride) 51 mls @ 100 mls/hr IV ONETIME ONE Stop: 02/16/19 17:25 Last Admin: 02/16/19 17:55 Dose: 100 mls/hr Magnesium Sulfate/Dextrose 1 (gm/ Premix) 100 mls @ 100 mls/hr IV ONETIME ONE Stop: 02/16/19 18:12 Last Admin: 02/16/19 20:07 Dose: 100 mls/hr Sodium Chloride (Normal Saline) Confirm Administered Dose 50 mls @ as directed .ROUTE .ST-MED ONE Stop: 02/16/19 17:38 Last Admin: 02/16/19 20:34 Dose: Not Given Cefazolin Sodium/Dextrose 2 gm (/ Premix) 50 mls @ 100 mls/hr IV Q8H [facility] Stop: 02/18/19 09:29 Last Admin: 02/18/19 09:04 Dose: 100 mls/hr Lidocaine HCl (Xylocaine-Mpf 1%) Confirm Administered Dose 10 mls @ as directed .ROUTE .STK-MED ONE Stop: 02/17/19 07:41 Sodium Chloride (Normal Saline) Confirm Administered Dose 2,000 mls @ as directed .ROUTE .ST-MED ONE Stop: 02/17/19 07:41 Phenylephrine HCl 1 mg/ Sodium (Chloride) 10.1 mls @ 1 mls/sec IV TITRATE [facility]; Protocol Sodium Chloride (Normal Saline) 500 mls @ 999 mls/hr IV .BOLUS ONE Stop: 02/17/19 16:20 Last Admin: 02/17/19 16:05 Dose: 999 mls/hr Sodium Chloride (Normal Saline) 500 mls @ 999 mls/hr IV .BOLUS ONE Stop: 02/17/19 18:07 Last Admin: 02/17/19 17:53 Dose: 999 mls/hr Sodium Chloride (Normal Saline) 1,000 mls @ 125 mls/hr IV ASDIRECTED [facility] Last Admin: 02/19/19 05:05 Dose: 75 mls/hr Sodium Chloride (Normal Saline) 500 mls @ 500 mls/hr IV .BOLUS ONE Stop: 02/19/19 06:54 Last Admin: 02/19/19 06:02 Dose: 500 mls/hr Iodine (Iodine 2% Mild Tincture) Confirm Administered Dose 30 ml .ROUTE .STK- MED ONE Stop: 02/17/19 06:26 Iodine (Iodine 2% Mild Tincture) Confirm Administered Dose 30 ml .ROUTE .STK- MED ONE Stop: 02/17/19 08:16 Last Admin: 02/17/19 10:05 Dose: 18 ml Ketamine HCl (Ketalar) Confirm Administered Dose 500 mg .ROUTE .STK-MED ONE Stop: 02/17/19 07:42 Metoprolol Succinate (Toprol Xl) 50 mg PO DAILY [facility] Metoprolol Succinate (Toprol Xl) 50 mg PO ONETIME ONE Stop: 02/17/19 06:46 Last Admin: 02/17/19 06:49 Dose: 50 mg Midazolam HCl (Versed 1 Mg/Ml) Confirm Administered Dose 2 mg .ROUTE .STK-MED ONE Stop: 02/17/19 07:42 Midazolam HCl (Versed 1 Mg/Ml) Confirm Administered Dose 2 mg .ROUTE .STK-MED ONE Stop: 02/17/19 09:44 Ondansetron HCl (Zofran) 4 mg IVPUSH ONETIME ONE Stop: 02/16/19 12:28 Last Admin: 02/16/19 12:38 Dose: 4 mg Ondansetron HCl (Zofran) 4 mg IVPUSH ONETIME ONE Stop: 02/16/19 13:23 Last Admin: 02/16/19 13:32 Dose: 4 mg Ondansetron HCl (Zofran) 4 mg IVPUSH Q6H PRN PRN Reason: Nausea/Vomiting Ondansetron HCl (Zofran) Confirm Administered Dose 4 mg .ROUTE .STK-MED ONE Stop: 02/17/19 07:41 Ondansetron HCl (Zofran) 4 mg IVPUSH ONETIME PRN PRN Reason: Nausea/Vomiting Phenylephrine HCl (Phenylephrine In Ns 100 Mcg/Ml) Confirm Administered Dose 1 mg .ROUTE .STK-MED ONE Stop: 02/17/19 07:41 Propofol (Diprivan 20 Ml) Confirm Administered Dose 400 mg .ROUTE .STK-MED ONE Stop: 02/17/19 07:41 Scopolamine (Transderm-Scop) 1.5 mg TRDERM ONETIME PRN PRN Reason: PONV Senna/Docusate Sodium (Senna Plus) 2 tab PO ONETIME ONE Stop: 02/18/19 15:01 Last Admin: 02/18/19 15:33 Dose: 2 tab Tranexamic Acid (Cyklokapron) Confirm Administered Dose 1,000 mg .ROUTE .STK- MED ONE Stop: 02/17/19 06:26 Tranexamic Acid (Cyklokapron) Confirm Administered Dose 1,000 mg .ROUTE .STK- MED ONE Stop: 02/17/19 08:16 Last Admin: 02/17/19 10:18 Dose: 1,000 mg Vancomycin HCl (Vancomycin) Confirm Administered Dose 1 gm .ROUTE .STK-MED ONE Stop: 02/17/19 06:26 Vancomycin HCl (Vancomycin) Confirm Administered Dose 1 gm .ROUTE .STK-MED ONE Stop: 02/17/19 08:16 Last Admin: 02/17/19 10:13 Dose: 1 gm - Exam Wound/Incisions: Dressing Dry and Intact General: Alert, Cooperative, No Acute Distress Lungs: Normal Respiratory Effort Extremities: Other (Left thigh soft, nontender. Mia's negative for BLE. NVS intact for BLE.) - Problem List Review Problem List Initiated/Reviewed/Updated: Yes - My Orders Last 24 Hours: Active Orders 24 hr Category Date Time Status CBC WITH AUTO DIFF [HEME] AM Lab 02/21/19 05:11 Ordered CBC WITH AUTO DIFF [HEME] AM Lab 02/22/19 05:11 Ordered CBC WITH AUTO DIFF [HEME] AM Lab 02/23/19 05:11 Ordered CBC WITH AUTO DIFF [HEME] AM Lab 02/24/19 05:11 Ordered CMP [COMPREHENSIVE METABOLIC PN,CMP] [CHEM] AM Lab 02/21/19 05:11 Ordered CMP [COMPREHENSIVE METABOLIC PN,CMP] [CHEM] AM Lab 02/22/19 05:11 Ordered CMP [COMPREHENSIVE METABOLIC PN,CMP] [CHEM] AM Lab 02/23/19 05:11 Ordered CMP [COMPREHENSIVE METABOLIC PN,CMP] [CHEM] AM Lab 02/24/19 05:11 Ordered MAGNESIUM [CHEM] AM Lab 02/21/19 05:11 Ordered MAGNESIUM [CHEM] AM Lab 02/22/19 05:11 Ordered MAGNESIUM [CHEM] AM Lab 02/23/19 05:11 Ordered MAGNESIUM [CHEM] AM Lab 02/24/19 05:11 Ordered Diltiazem IR [Cardizem] Med 02/19/19 18:00 Active 30 mg PO Q6HR Sodium Chloride 0.9% [Normal Saline] 1,000 ml Med 02/19/19 09:15 Active IV ASDIRECTED EKG 12 Lead [EK] Stat Ther 02/19/19 08:38 Ordered Medication Orders Hydrocodone Bitart/Acetaminophen (Humble 325-5 Mg) 1 - 2 tab PO Q4H PRN PRN Reason: Pain Last Admin: 02/18/19 23:33 Dose: 1 tab Admin: 02/18/19 15:33 Dose: 1 tab Admin: 02/18/19 11:26 Dose: 1 tab Admin: 02/18/19 06:14 Dose: 1 tab Admin: 02/17/19 14:35 Dose: 1 tab Bisacodyl (Dulcolax) 5 mg PO DAILY PRN PRN Reason: Constipation Last Admin: 02/19/19 20:09 Dose: 5 mg Cyclobenzaprine HCl (Flexeril) 10 mg PO TID PRN PRN Reason: Spasms Last Admin: 02/19/19 20:09 Dose: 10 mg Admin: 02/16/19 22:59 Dose: 10 mg Diltiazem HCl (Cardizem) 30 mg PO Q6HR [facility] Last Admin: 02/20/19 06:37 Dose: 30 mg Admin: 02/20/19 00:07 Dose: 30 mg Admin: 02/19/19 17:30 Dose: 30 mg Docusate Sodium (Colace) 100 mg PO BID [facility] Last Admin: 02/19/19 20:08 Dose: 100 mg Admin: 02/19/19 08:54 Dose: 100 mg Admin: 02/18/19 20:32 Dose: 100 mg Admin: 02/18/19 09:06 Dose: 100 mg Admin: 02/17/19 20:37 Dose: 100 mg Ondansetron HCl 8 mg/ Sodium (Chloride) 54 mls @ 108 mls/hr IV Q8H PRN PRN Reason: NAUSEA/VOMITING Diltiazem HCl 125 mg/ Sodium (Chloride) 125 mls @ 5 mls/hr IV TITRATE [facility]; Protocol Last Titration: 02/19/19 14:42 Dose: 2 mg/hr, 2 mls/hr Titration: 02/19/19 13:13 Dose: 5 mg/hr, 5 mls/hr Titration: 02/19/19 07:37 Dose: 10 mg/hr, 10 mls/hr Admin: 02/19/19 05:05 Dose: 5 mg/hr, 5 mls/hr Sodium Chloride (Normal Saline) 1,000 mls @ 50 mls/hr IV ASDIRECTED [facility] Last Admin: 02/19/19 16:47 Dose: 50 mls/hr Infusion: 02/19/19 16:47 Dose: 50 mls/hr Admin: 02/19/19 09:11 Dose: 50 mls/hr Lorazepam (Ativan) 1 mg IVPUSH Q4H PRN PRN Reason: Nausea Last Admin: 02/17/19 03:17 Dose: 1 mg Metoprolol Succinate (Toprol Xl) 50 mg PO DAILY [facility] Last Admin: 02/19/19 08:53 Dose: 50 mg Admin: 02/18/19 12:44 Dose: 50 mg Morphine Sulfate (Morphine) 2 mg IVPUSH Q2H PRN PRN Reason: Pain Naloxone HCl (Narcan) 0.1 mg IVPUSH Q5M PRN PRN Reason: Oversedation Pantoprazole Sodium (Protonix) 40 mg PO DAILY@0700 [facility] Last Admin: 02/20/19 06:37 Dose: 40 mg Admin: 02/19/19 06:09 Dose: 40 mg Admin: 02/18/19 06:14 Dose: 40 mg Admin: 02/17/19 06:49 Dose: 40 mg Rivaroxaban (Xarelto) 10 mg PO DAILY [facility] Last Admin: 02/19/19 08:53 Dose: 10 mg Admin: 02/18/19 09:06 Dose: 10 mg Senna (Senna) 8.6 mg PO BID PRN PRN Reason: Constipation - Assessment Assessment (Free Text/Narrative):: POD#3 - s/p left endoprosthesis - Plan Plan (Free Text/Narrative):: 1. Xarelto, SCDs, TEDs. 2. Suspect discharge to CT for continued therapy. 3. Further orders per Hospitalist service. The pt's case was discussed with Dr. Partida.
[2019-02-20] MEDS: Docusate Sodium 100 MG Cap PO SCH ×2 (08:20→20:07)
[2019-02-20] MEDS: Metoprolol Succinate 50 MG Tab.ER PO SCH (08:20)
[2019-02-20] MEDS: Rivaroxaban 10 MG Tab PO SCH (08:20)
[2019-02-20] MEDS ORDERED: Magnesium Sulfate/Water 2 GM in Premix Bag 1 BAG IV ONE (08:31)
[2019-02-20] MEDS: Sodium Chloride 0.9% 1,000 ML IV SCH (11:39)
[2019-02-20] MEDS ORDERED: Rivaroxaban 10 MG Tab PO ONE (12:00)
[2019-02-20] MEDS: Acetaminophen/HYDROcodone 325-5 MG Tab PO PRN (13:22)
--- NOTE | 2019-02-20 13:46 | PCM.PN ---
- General Info Date of Service: 02/20/19 Admission Dx/Problem (Free Text): Admission Diagnosis/Problem Admission Diagnosis/Problem Hip fracture requiring operative repair Subjective Update: patient is well overnight and is on oral Cardizem 30 mg IR. When her Cardizem reaches within an hour the next dose her heart rate does increase. Functional Status: Reports: Pain Controlled - Review of Systems General: Reports: No Symptoms HEENT: Reports: No Symptoms Pulmonary: Reports: No Symptoms Cardiovascular: Reports: No Symptoms. Denies: Palpitations Gastrointestinal: Reports: No Symptoms - Patient Data Vitals - Most Recent: Last Vital Signs Temp 97.8 F 02/20/19 12:00 Pulse 84 02/20/19 12:00 Resp 17 02/20/19 12:00 BP 98/59 L 02/20/19 12:00 Pulse Ox 99 02/20/19 12:00 Weight - Most Recent: 178 lb 6.4 oz I&O - Last 24 Hours: Intake & Output 02/19/19 02/20/19 02/20/19 22:59 06:59 14:59 Intake Total 1553 1105 330 Output Total 1200 300 800 Balance 353 805 -470 Lab Results Last 24 Hours: Laboratory Results - last 24 hr 02/20/19 02/20/19 Range/Units 04:25 04:25 WBC 9.14 (3.98-10.04) K/mm3 RBC 3.27 L (3.98-5.22) M/mm3 Hgb 9.7 L (11.2-15.7) gm/L Hct 29.4 L (34.1-44.9) % MCV 89.9 (79.4-94.8) fl MCH 29.7 (25.6-32.2) pg MCHC 33.0 (32.2-35.5) g/dl RDW Std Deviation 44.7 (36.4-46.3) fL Plt Count 152 L (182-369) K/mm3 MPV 11.1 (9.4-12.3) fl Neut % (Auto) 64.7 (34.0-71.1) % Lymph % (Auto) 20.9 (19.3-51.7) % [place] % (Auto) 12.9 H (4.7-12.5) % Eos % (Auto) 1.1 (0.7-5.8) Baso % (Auto) 0.2 (0.1-1.2) % Neut # (Auto) 5.91 (1.56-6.13) K/mm3 Lymph # (Auto) 1.91 (1.18-3.74) K/mm3 [place] # (Auto) 1.18 H (0.24-0.36) K/mm3 Eos # (Auto) 0.10 (0.04-0.36) K/mm3 Baso # (Auto) 0.02 (0.01-0.08) K/mm3 Sodium 138 (136-145) mEq/L Potassium 3.5 (3.5-5.1) mEq/L Chloride 104 (98-107) mEq/L Carbon Dioxide 22 (21-32) mEq/L Anion Gap 15.5 H (5-15) BUN 9 (7-18) mg/dL Creatinine 0.6 (0.55-1.02) mg/dL Est Cr Clr Drug Dosing 61.58 mL/min Estimated GFR (MDRD) > 60 (>60) mL/min BUN/Creatinine Ratio 15.0 (14-18) Glucose 109 (83-115) mg/dL Calcium 8.1 L (8.5-10.1) mg/dL Magnesium 1.7 L (1.8-2.4) mg/dl Total Bilirubin 1.0 (0.2-1.0) mg/dL AST 42 H (15-37) U/L ALT 22 (14-59) U/L Alkaline Phosphatase 65 (46-116) U/L Total Protein 5.6 L (6.4-8.2) g/dl Albumin 2.2 L (3.4-5.0) g/dl Globulin 3.4 gm/dL Albumin/Globulin Ratio 0.7 L (1-2) Jesús Results Last 24 Hours: Microbiology 02/17/19 19:00 Aerobic Blood Culture - Preliminary Blood - Venous NO GROWTH AFTER 2 DAYS Anaerobic Blood Culture - Final Med Orders - Current: Current Medications Hydrocodone Bitart/Acetaminophen ([place] 325-5 Mg) 1 - 2 tab PO Q4H PRN PRN Reason: Pain Last Admin: 02/20/19 13:22 Dose: 1 tab Bisacodyl (Dulcolax) 5 mg PO DAILY PRN PRN Reason: Constipation Last Admin: 02/19/19 20:09 Dose: 5 mg Cyclobenzaprine HCl (Flexeril) 10 mg PO TID PRN PRN Reason: Spasms Last Admin: 02/19/19 20:09 Dose: 10 mg Diltiazem HCl (Cardizem) 30 mg PO Q6HR [facility] Last Admin: 02/20/19 11:41 Dose: 30 mg Diltiazem HCl (Cardizem Cd) 120 mg PO Q24H [facility] Docusate Sodium (Colace) 100 mg PO BID [facility] Last Admin: 02/20/19 08:20 Dose: 100 mg Ondansetron HCl 8 mg/ Sodium (Chloride) 54 mls @ 108 mls/hr IV Q8H PRN PRN Reason: NAUSEA/VOMITING Diltiazem HCl 125 mg/ Sodium (Chloride) 125 mls @ 5 mls/hr IV TITRATE [facility]; Protocol Last Titration: 02/19/19 14:42 Dose: 2 mg/hr, 2 mls/hr Sodium Chloride (Normal Saline) 1,000 mls @ 50 mls/hr IV ASDIRECTED [facility] Last Admin: 02/20/19 11:39 Dose: 50 mls/hr Lorazepam (Ativan) 1 mg IVPUSH Q4H PRN PRN Reason: Nausea Last Admin: 02/17/19 03:17 Dose: 1 mg Metoprolol Succinate (Toprol Xl) 50 mg PO DAILY [facility] Last Admin: 02/20/19 08:20 Dose: 50 mg Morphine Sulfate (Morphine) 2 mg IVPUSH Q2H PRN PRN Reason: Pain Naloxone HCl (Narcan) 0.1 mg IVPUSH Q5M PRN PRN Reason: Oversedation Pantoprazole Sodium (Protonix) 40 mg PO DAILY@0700 [facility] Last Admin: 02/20/19 06:37 Dose: 40 mg Rivaroxaban (Xarelto) 20 mg PO DAILY [facility] Senna (Senna) 8.6 mg PO BID PRN PRN Reason: Constipation Discontinued Medications Albuterol (Proventil Neb Soln) 2.5 mg NEB ONETIME ONE Stop: 02/17/19 06:41 Last Admin: 02/17/19 06:57 Dose: 2.5 mg Albuterol (Proventil Neb Soln) 2.5 mg NEB ONETIME PRN PRN Reason: bronchodilation Bupivacaine HCl (Sensorcaine-Mpf 0.25%) Confirm Administered Dose 30 ml .ROUTE .STK-MED ONE Stop: 02/17/19 06:26 Bupivacaine HCl (Sensorcaine-Mpf 0.25%) Confirm Administered Dose 30 ml .ROUTE .STK-MED ONE Stop: 02/17/19 08:16 Last Admin: 02/17/19 10:12 Dose: 20 ml Cefazolin Sodium (Ancef) Confirm Administered Dose 2 gm .ROUTE .STK-MED ONE Stop: 02/17/19 06:26 Cefazolin Sodium (Ancef) Confirm Administered Dose 2 gm .ROUTE .STK-MED ONE Stop: 02/17/19 07:41 Last Admin: 02/17/19 10:07 Dose: 2 gm Morphine Sulfate 8 mg/Epinephrine HCl 0.3 mg/Cefuroxime Sodium 750 mg/Ketorolac Tromethamine 30 mg/Sodium Chloride 27.9 ml 0 mg .XX ONETIME ONE Stop: 02/17/19 06:48 Last Admin: 02/17/19 18:54 Dose: Not Given Morphine Sulfate 8 mg/Epinephrine HCl 0.3 mg/Cefuroxime Sodium 750 mg/Ketorolac Tromethamine 30 mg/Sodium Chloride 27.9 ml 0 mg .XX ONETIME ONE Stop: 02/17/19 08:16 Last Admin: 02/17/19 10:12 Dose: 788.3 mg Diltiazem HCl (Cardizem) 10 mg IVPUSH ONETIME ONE Stop: 02/19/19 04:55 Last Admin: 02/19/19 05:04 Dose: 10 mg Diltiazem HCl (Cardizem) 5 mg IVPUSH ONETIME ONE Stop: 02/19/19 08:03 Last Admin: 02/19/19 08:19 Dose: 5 mg Diphenhydramine HCl (Benadryl) 25 mg IVPUSH Q6H PRN PRN Reason: pruritis Ephedrine Sulfate (Ephedrine Sulfate) 5 mg IVPUSH ASDIRECTED PRN PRN Reason: Hypotension Fentanyl (Sublimaze) Confirm Administered Dose 100 mcg .ROUTE .STK-MED ONE Stop: 02/17/19 07:41 Fentanyl (Sublimaze) 50 mcg IVPUSH Q5M PRN PRN Reason: Pain Hydromorphone HCl (Dilaudid) 0.5 mg IVPUSH Q15M PRN PRN Reason: Pain (severe 7-10) Lactated Ringer's (Ringers, Lactated) 1,000 mls @ 100 mls/hr IV .BOLUS ONE Stop: 02/16/19 22:27 Last Admin: 02/16/19 12:36 Dose: 100 mls/hr Promethazine HCl 25 mg/ Sodium (Chloride) 51 mls @ 100 mls/hr IV ONETIME ONE Stop: 02/16/19 17:25 Last Admin: 02/16/19 17:55 Dose: 100 mls/hr Magnesium Sulfate/Dextrose 1 (gm/ Premix) 100 mls @ 100 mls/hr IV ONETIME ONE Stop: 02/16/19 18:12 Last Admin: 02/16/19 20:07 Dose: 100 mls/hr Sodium Chloride (Normal Saline) Confirm Administered Dose 50 mls @ as directed .ROUTE .STK-MED ONE Stop: 02/16/19 17:38 Last Admin: 02/16/19 20:34 Dose: Not Given Cefazolin Sodium/Dextrose 2 gm (/ Premix) 50 mls @ 100 mls/hr IV Q8H [facility] Stop: 02/18/19 09:29 Last Admin: 02/18/19 09:04 Dose: 100 mls/hr Lidocaine HCl (Xylocaine-Mpf 1%) Confirm Administered Dose 10 mls @ as directed .ROUTE .STK-MED ONE Stop: 02/17/19 07:41 Sodium Chloride (Normal Saline) Confirm Administered Dose 2,000 mls @ as directed .ROUTE .STK-MED ONE Stop: 02/17/19 07:41 Phenylephrine HCl 1 mg/ Sodium (Chloride) 10.1 mls @ 1 mls/sec IV TITRATE [facility]; Protocol Sodium Chloride (Normal Saline) 500 mls @ 999 mls/hr IV .BOLUS ONE Stop: 02/17/19 16:20 Last Admin: 02/17/19 16:05 Dose: 999 mls/hr Sodium Chloride (Normal Saline) 500 mls @ 999 mls/hr IV .BOLUS ONE Stop: 02/17/19 18:07 Last Admin: 02/17/19 17:53 Dose: 999 mls/hr Sodium Chloride (Normal Saline) 1,000 mls @ 125 mls/hr IV ASDIRECTED [facility] Last Admin: 02/19/19 05:05 Dose: 75 mls/hr Sodium Chloride (Normal Saline) 500 mls @ 500 mls/hr IV .BOLUS ONE Stop: 02/19/19 06:54 Last Admin: 02/19/19 06:02 Dose: 500 mls/hr Magnesium Sulfate 2 gm/ Premix 50 mls @ 25 mls/hr IV ONETIME ONE Stop: 02/20/19 10:30 Last Admin: 02/20/19 08:59 Dose: 25 mls/hr Iodine (Iodine 2% Mild Tincture) Confirm Administered Dose 30 ml .ROUTE .STK- MED ONE Stop: 02/17/19 06:26 Iodine (Iodine 2% Mild Tincture) Confirm Administered Dose 30 ml .ROUTE .STK- MED ONE Stop: 02/17/19 08:16 Last Admin: 02/17/19 10:05 Dose: 18 ml Ketamine HCl (Ketalar) Confirm Administered Dose 500 mg .ROUTE .STK-MED ONE Stop: 02/17/19 07:42 Metoprolol Succinate (Toprol Xl) 50 mg PO DAILY [facility] Metoprolol Succinate (Toprol Xl) 50 mg PO ONETIME ONE Stop: 02/17/19 06:46 Last Admin: 02/17/19 06:49 Dose: 50 mg Midazolam HCl (Versed 1 Mg/Ml) Confirm Administered Dose 2 mg .ROUTE .STK-MED ONE Stop: 02/17/19 07:42 Midazolam HCl (Versed 1 Mg/Ml) Confirm Administered Dose 2 mg .ROUTE .STK-MED ONE Stop: 02/17/19 09:44 Ondansetron HCl (Zofran) 4 mg IVPUSH ONETIME ONE Stop: 02/16/19 12:28 Last Admin: 02/16/19 12:38 Dose: 4 mg Ondansetron HCl (Zofran) 4 mg IVPUSH ONETIME ONE Stop: 02/16/19 13:23 Last Admin: 02/16/19 13:32 Dose: 4 mg Ondansetron HCl (Zofran) 4 mg IVPUSH Q6H PRN PRN Reason: Nausea/Vomiting Ondansetron HCl (Zofran) Confirm Administered Dose 4 mg .ROUTE .STK-MED ONE Stop: 02/17/19 07:41 Ondansetron HCl (Zofran) 4 mg IVPUSH ONETIME PRN PRN Reason: Nausea/Vomiting Phenylephrine HCl (Phenylephrine In Ns 100 Mcg/Ml) Confirm Administered Dose 1 mg .ROUTE .STK-MED ONE Stop: 02/17/19 07:41 Propofol (Diprivan 20 Ml) Confirm Administered Dose 400 mg .ROUTE .STK-MED ONE Stop: 02/17/19 07:41 Rivaroxaban (Xarelto) 10 mg PO DAILY [facility] Last Admin: 02/20/19 08:20 Dose: 10 mg Rivaroxaban (Xarelto) 10 mg PO ONETIME ONE Stop: 02/20/19 12:01 Last Admin: 02/20/19 12:05 Dose: 10 mg Scopolamine (Transderm-Scop) 1.5 mg TRDERM ONETIME PRN PRN Reason: PONV Senna/Docusate Sodium (Senna Plus) 2 tab PO ONETIME ONE Stop: 02/18/19 15:01 Last Admin: 02/18/19 15:33 Dose: 2 tab Tranexamic Acid (Cyklokapron) Confirm Administered Dose 1,000 mg .ROUTE .STK- MED ONE Stop: 02/17/19 06:26 Tranexamic Acid (Cyklokapron) Confirm Administered Dose 1,000 mg .ROUTE .STK- MED ONE Stop: 02/17/19 08:16 Last Admin: 02/17/19 10:18 Dose: 1,000 mg Vancomycin HCl (Vancomycin) Confirm Administered Dose 1 gm .ROUTE .STK-MED ONE Stop: 02/17/19 06:26 Vancomycin HCl (Vancomycin) Confirm Administered Dose 1 gm .ROUTE .STK-MED ONE Stop: 02/17/19 08:16 Last Admin: 02/17/19 10:13 Dose: 1 gm - Exam Quality Assessment: No: Supplemental Oxygen General: Alert, Oriented HEENT: Pupils Equal, Mucous Membr. Moist/[place] Neck: Supple Lungs: Clear to Auscultation, Normal Respiratory Effort Cardiovascular: Irregular Rhythm GI/Abdominal Exam: Normal Bowel Sounds, Soft, Non-Tender, No Organomegaly, No Distention Skin: Warm, Dry, Intact Wound/Incisions: Healing Well Psy/Mental Status: Alert, Normal Affect, Normal Mood - Problem List Review Problem List Initiated/Reviewed/Updated: Yes - My Orders Last 24 Hours: My Active Orders 02/19/19 18:00 Diltiazem IR [Cardizem] 30 mg PO Q6HR 02/20/19 Echo Comp wo Cont [US] Routine 02/20/19 10:57 Patient Status [ADT] Routine 02/20/19 21:00 Diltiazem [Cardizem CD] 120 mg PO Q24H 02/21/19 05:11 CBC WITH AUTO DIFF [HEME] AM CMP [COMPREHENSIVE METABOLIC PN,CMP] [CHEM] AM MAGNESIUM [CHEM] AM 02/21/19 09:00 Rivaroxaban [Xarelto] 20 mg PO DAILY 02/22/19 05:11 CBC WITH AUTO DIFF [HEME] AM CMP [COMPREHENSIVE METABOLIC PN,CMP] [CHEM] AM MAGNESIUM [CHEM] AM 02/23/19 05:11 CBC WITH AUTO DIFF [HEME] AM CMP [COMPREHENSIVE METABOLIC PN,CMP] [CHEM] AM MAGNESIUM [CHEM] AM 02/24/19 05:11 CBC WITH AUTO DIFF [HEME] AM CMP [COMPREHENSIVE METABOLIC PN,CMP] [CHEM] AM MAGNESIUM [CHEM] AM - Assessment Assessment:: see prog note doing well pod 2 - Plan Plan:: Assessment * postop day 2 left endoprosthesis * New-onset A. fib with RVR * Hypomagnesemia * History of anemia, hypertension, chronic GERD Plan * Downgrade to Med/Surge * Switch from Cardizem IR 30 mg every 6 hours to Cardizem CD [address]. [address] her metoprolol which is once a day in her Cardizem which will be ruled out once a day will do a better job of covering the full 24 hour day. * Stop Cardizem drip * Continue metoprolol succinate 50 mg every morning * replete magnesium and recheck in am * Echocardiogram * CBC, CMP, and mag in the morning * VTE prophylaxis with Xarelto. * CODE STATUS: Full code
[2019-02-20] MEDS: Cyclobenzaprine 10 MG Tab PO PRN (20:07)
[2019-02-20] MEDS ORDERED: Diltiazem 120 MG Cap.CD PO SCH (21:00)
[2019-02-21] MEDS: Pantoprazole 40 MG Tab.CR PO SCH (06:36)
[2019-02-21] MEDS: Metoprolol Succinate 50 MG Tab.ER PO SCH ×2 (07:49→09:09)
[2019-02-21] MEDS: Docusate Sodium 100 MG Cap PO SCH (08:57)
[2019-02-21] MEDS ORDERED: Rivaroxaban 10 MG Tab PO SCH (09:00)
--- NOTE | 2019-02-21 09:02 | PCM.OPNOTE ---
- General Post-Op/Procedure Note Date of Surgery/Procedure: 02/17/19 Operative Procedure(s): left hip hemiarthroplasty Pre Op Diagnosis: displaced left femoral neck fracture Post-Op Diagnosis: Same Anesthesia Technique: Local, MAC, Spinal Primary Surgeon: Dominik Partida Anesthesia Provider: Taniya Welch Sales Developer: Agueda Toribio EBL in mLs: 550 Complications: None Condition: Good Free Text/Narrative:: Intake & Output 02/20/19 02/21/19 02/21/19 22:59 06:59 14:59 Intake Total 2717 1088 Output Total 2800 400 Balance -83 688 size 7 stem 48mm head with +4mm neck sleeve
[2019-02-21] MEDS ORDERED: Polyethylene Glycol 3350 Powder 17 GM Packet PO SCH (11:00)
[2019-02-21 11:47] VITALS: BP 114/56; PULSE 87
--- NOTE | 2019-02-21 11:59 | PCM.DCSUM1 ---
Discharge Summary - Hospital Course HPI Initial Comments: 83-year-old female is brought in by [facility] for possible hip fracture. Patient was working in her garden when she tripped over a cucumber. No head trauma. Had pain to the left hip and identifies pain to the greater trochanter. At this time she is pain-free as EMS did give her 1 mg of Dilaudid. She is feeling nauseous and flushed from this. No pain to the left knee. No history of any problems with the left hip previously. Diagnosis: Stroke: No - Discharge Data Discharge Date: 02/21/19 Discharge Disposition: DC/Tfer to SNF 03 Condition: Good - Referral to Home Health Primary Care Physician: Carolynn Goins NP - Patient Summary/Data Operative Procedure(s) Performed: left hip hemiarthroplasty Consults: Consultations 02/17/19 06:47 OT Evaluation and Treatment [CONS] Routine PT Evaluation and Treatment [CONS] Routine Hospital Course: Patient was admitted and had a left hip hemiarthroplasty with no complications. On 420, patient did develop new onset A. fib with RVR and was transferred to the ICU on a Cardizem drip. Troponins were negative. Echocardiogram was done and were still waiting on those results. Patient was converted to insulin release Cardizem and then Cardizem 24-hour period patient continues on Toprol- XL 50 mg daily in the morning. On day of discharge Cardizem 24-hour was increased 280 mg at night to better compensate for morning heart rate. Blood pressures have been good in the low 100s systolic to 90 systolic. She has not had any symptoms of hypotension. Mean arterial pressure has been in the 70s. Patient will go to [facility] for [facility]. - Patient Instructions Diet: Usual Diet as Tolerated Activity: Apply Ice, As Tolerated, Elevate Extremity, Full Weight Bearing Activity, Other: JENSEN precautions. Driving: Do Not Drive Showering/Bathing: May Shower Wound/Incision Care: Keep Operative Site/Wound Site Clean and Dry, Do NOT Change Dressing Notify Provider of: Fever, Increased Pain, Swelling and Redness, Drainage, Nausea and/or Vomiting Other/Special Instructions: Please get up and moving around EVERY HOUR while awake. This helps to prevent blood clots. Please use your walker and have help with mobility as needed. Take a short walk in your home every hour while awake. Please take 325mg Aspirin TWICE daily. The aspirin is being used for blood clot prevention and not for pain management so please do not miss a dose of the medication. You could use a medication like Zantac or Pepcid and a medication like Prilosec or Nexium to protect your stomach while you are using the aspirin. At home, please complete the exercises that you learned during the Hospital stay. Schedule for physical therapy. Use the pain medication as needed. The medication may cause drowsiness and constipation. Contact your primary care provider for instructions if you are constipated. You may use a stool softener like docusate sodium or Colace 100mg twice daily and/or a laxative like Miralax daily for constipation. Increase your water and fiber intake while you are using the pain medication. Discontinue use of the pain medication as soon as able. Please do not use other medications that may cause drowsiness (other pain medications, anxiety pills, cold medications, sleeping pills, etc) while using the prescription pain medication. Do not use alcohol while using the pain medication. You may use acetaminophen or Tylenol for pain management, however, please ensure you are not using over 4000 mg or 4 grams of acetaminophen per day from all sources. Your pain medication has 325mg of acetaminophen per tablet. At this time, please do not use ibuprofen (Motrin, Advil) or naproxen (Aleve) for pain management as you are using the aspirin. When the aspirin course is completed in 4 to 6 weeks, you could use ibuprofen or naproxen for pain management (if this is allowed by your primary care provider). Wear the BILL hose during the day and you may remove these at night. Elevate the limb to decrease swelling. Place ice to the area often. Place a towel between your skin and the blue pad. Use the incentive spirometer often. Take deep breaths throughout the day. Please keep the dressing in place until follow-up. Notify the Clinic if the dressing becomes saturated. Increase your protein intake while you are healing. If you have diabetes, please closely monitor your blood sugars and notify your primary care provider with abnormal values. Elevated blood sugars increases the risk of infection. Call the Clinic with questions or concerns - [phone]. - Discharge Plan *PRESCRIPTION DRUG MONITORING PROGRAM REVIEWED*: No *COPY OF PRESCRIPTION DRUG MONITORING REPORT IN PATIENT MARTHA: No Prescriptions/Med Rec: Diltiazem HCl [Dilt-Xr] 180 mg PO BEDTIME #30 cap.er.deg Rivaroxaban [Xarelto] 20 mg PO DAILY #30 tablet Home Medications: Home Meds Metoprolol Succinate [Toprol XL] 50 mg PO DAILY 12/13/14 [History] Omeprazole 20 mg PO DAILY 12/13/14 [History] Fluticasone Propionate [Flovent] 1 spray INH ASDIRECTED PRN 02/16/19 [History] Diltiazem HCl [Dilt-Xr] 180 mg PO BEDTIME #30 cap.er.deg 02/21/19 [Rx] Rivaroxaban [Xarelto] 20 mg PO DAILY #30 tablet 02/21/19 [Rx] Forms: ED Department Discharge Referrals: Carolynn Goins NP [Primary Care Provider] - Agueda Toribio PA-C [Physician [employer]] - - Discharge Summary/Plan Comment DC Time >30 min.: Yes Discharge Summary/Plan Comment: discharge to [facility] facility[facility] for rehabilitation. Follow blood pressure and heart rate closely. Recommend metoprolol succinate 50 mg in the morning and Cardizem 24-hour 180 mg in the evening for rate control. echocardiogram results are still pending. Follow-up with primary care provider within one week. Follow-up with orthotopic. - General Info Date of Service: 02/21/19 Admission Dx/Problem (Free Text: Admission Diagnosis/Problem Admission Diagnosis/Problem Hip fracture requiring operative repair Subjective Update: patient is doing very well today. She is asymptomatic from a medical standpoint. Pain is well controlled. Functional Status: Reports: Pain Controlled - Review of Systems General: Reports: No Symptoms HEENT: Reports: No Symptoms Pulmonary: Reports: No Symptoms Cardiovascular: Reports: No Symptoms Gastrointestinal: Reports: No Symptoms Musculoskeletal: Reports: No Symptoms - Patient Data Vitals - Most Recent: Last Vital Signs Temp 98.2 F 02/21/19 11:45 Pulse 87 02/21/19 11:45 Resp 18 02/21/19 11:45 BP 114/56 L 02/21/19 11:45 Pulse Ox 92 L 02/21/19 11:45 Weight - Most Recent: 177 lb 9.6 oz I&O - Last 24 hours: Intake & Output 02/20/19 02/21/19 02/21/19 22:59 06:59 14:59 Intake Total 7567 1088 180 Output Total 2800 400 Balance -83 688 180 Lab Results - Last 24 hrs: Laboratory Results - last 24 hr 02/21/19 02/21/19 Range/Units 04:50 04:54 WBC 7.60 (3.98-10.04) K/mm3 RBC 3.35 L (3.98-5.22) M/mm3 Hgb 10.1 L (11.2-15.7) gm/L Hct 30.0 L (34.1-44.9) % MCV 89.6 (79.4-94.8) fl MCH 30.1 (25.6-32.2) pg MCHC 33.7 (32.2-35.5) g/dl RDW Std Deviation 44.5 (36.4-46.3) fL Plt Count 184 (182-369) K/mm3 MPV 10.2 (9.4-12.3) fl Neut % (Auto) 57.2 (34.0-71.1) % Lymph % (Auto) 26.7 (19.3-51.7) % [place] % (Auto) 12.1 (4.7-12.5) % Eos % (Auto) 3.6 (0.7-5.8) Baso % (Auto) 0.3 (0.1-1.2) % Neut # (Auto) 4.35 (1.56-6.13) K/mm3 Lymph # (Auto) 2.03 (1.18-3.74) K/mm3 [place] # (Auto) 0.92 H (0.24-0.36) K/mm3 Eos # (Auto) 0.27 (0.04-0.36) K/mm3 Baso # (Auto) 0.02 (0.01-0.08) K/mm3 Sodium 140 (136-145) mEq/L Potassium 3.6 (3.5-5.1) mEq/L Chloride 107 (98-107) mEq/L Carbon Dioxide 23 (21-32) mEq/L Anion Gap 13.6 (5-15) BUN 13 (7-18) mg/dL Creatinine 0.6 (0.55-1.02) mg/dL Est Cr Clr Drug Dosing 61.58 mL/min Estimated GFR (MDRD) > 60 (>60) mL/min BUN/Creatinine Ratio 21.7 H (14-18) Glucose 106 (83-115) mg/dL Calcium 8.2 L (8.5-10.1) mg/dL Magnesium 1.9 (1.8-2.4) mg/dl Total Bilirubin 0.9 (0.2-1.0) mg/dL AST 38 H (15-37) U/L ALT 25 (14-59) U/L Alkaline Phosphatase 71 (46-116) U/L Total Protein 5.7 L (6.4-8.2) g/dl Albumin 2.1 L (3.4-5.0) g/dl Globulin 3.6 gm/dL Albumin/Globulin Ratio 0.6 L (1-2) MICHELLE Results - Last 24 hrs: Microbiology 02/17/19 19:00 Aerobic Blood Culture - Preliminary Blood - Venous NO GROWTH AFTER 3 DAYS Anaerobic Blood Culture - Final Med Orders - Current: Current Medications Hydrocodone Bitart/Acetaminophen ([place] 325-5 Mg) 1 - 2 tab PO Q4H PRN PRN Reason: Pain Last Admin: 02/20/19 13:22 Dose: 1 tab Bisacodyl (Dulcolax) 5 mg PO DAILY PRN PRN Reason: Constipation Last Admin: 02/19/19 20:09 Dose: 5 mg Cyclobenzaprine HCl (Flexeril) 10 mg PO TID PRN PRN Reason: Spasms Last Admin: 02/20/19 20:07 Dose: 10 mg Diltiazem HCl (Cardizem Cd) 180 mg PO Q24H [facility] Docusate Sodium (Colace) 100 mg PO BID [facility] Last Admin: 02/21/19 08:57 Dose: 100 mg Ondansetron HCl 8 mg/ Sodium (Chloride) 54 mls @ 108 mls/hr IV Q8H PRN PRN Reason: NAUSEA/VOMITING Lorazepam (Ativan) 1 mg IVPUSH Q4H PRN PRN Reason: Nausea Last Admin: 02/17/19 03:17 Dose: 1 mg Metoprolol Succinate (Toprol Xl) 50 mg PO DAILY [facility] Last Admin: 02/21/19 09:09 Dose: Not Given Morphine Sulfate (Morphine) 2 mg IVPUSH Q2H PRN PRN Reason: Pain Naloxone HCl (Narcan) 0.1 mg IVPUSH Q5M PRN PRN Reason: Oversedation Pantoprazole Sodium (Protonix) 40 mg PO DAILY@0700 [facility] Last Admin: 02/21/19 06:36 Dose: 40 mg Polyethylene Glycol (Miralax) 17 gm PO DAILY [facility] Last Admin: 02/21/19 11:43 Dose: 17 gm Rivaroxaban (Xarelto) 20 mg PO DAILY [facility] Last Admin: 02/21/19 08:57 Dose: 20 mg Senna (Senna) 8.6 mg PO BID PRN PRN Reason: Constipation Discontinued Medications Albuterol (Proventil Neb Soln) 2.5 mg NEB ONETIME ONE Stop: 02/17/19 06:41 Last Admin: 02/17/19 06:57 Dose: 2.5 mg Albuterol (Proventil Neb Soln) 2.5 mg NEB ONETIME PRN PRN Reason: bronchodilation Bupivacaine HCl (Sensorcaine-Mpf 0.25%) Confirm Administered Dose 30 ml .ROUTE .STK-MED ONE Stop: 02/17/19 06:26 Bupivacaine HCl (Sensorcaine-Mpf 0.25%) Confirm Administered Dose 30 ml .ROUTE .STK-MED ONE Stop: 02/17/19 08:16 Last Admin: 02/17/19 10:12 Dose: 20 ml Cefazolin Sodium (Ancef) Confirm Administered Dose 2 gm .ROUTE .STK-MED ONE Stop: 02/17/19 06:26 Cefazolin Sodium (Ancef) Confirm Administered Dose 2 gm .ROUTE .STK-MED ONE Stop: 02/17/19 07:41 Last Admin: 02/17/19 10:07 Dose: 2 gm Morphine Sulfate 8 mg/Epinephrine HCl 0.3 mg/Cefuroxime Sodium 750 mg/Ketorolac Tromethamine 30 mg/Sodium Chloride 27.9 ml 0 mg .XX ONETIME ONE Stop: 02/17/19 06:48 Last Admin: 02/17/19 18:54 Dose: Not Given Morphine Sulfate 8 mg/Epinephrine HCl 0.3 mg/Cefuroxime Sodium 750 mg/Ketorolac Tromethamine 30 mg/Sodium Chloride 27.9 ml 0 mg .XX ONETIME ONE Stop: 02/17/19 08:16 Last Admin: 02/17/19 10:12 Dose: 788.3 mg Diltiazem HCl (Cardizem) 10 mg IVPUSH ONETIME ONE Stop: 02/19/19 04:55 Last Admin: 02/19/19 05:04 Dose: 10 mg Diltiazem HCl (Cardizem) 5 mg IVPUSH ONETIME ONE Stop: 02/19/19 08:03 Last Admin: 02/19/19 08:19 Dose: 5 mg Diltiazem HCl (Cardizem) 30 mg PO Q6HR PATRICIA Last Admin: 02/20/19 17:18 Dose: 30 mg Diltiazem HCl (Cardizem Cd) 120 mg PO Q24H [facility] Last Admin: 02/20/19 20:07 Dose: 120 mg Diphenhydramine HCl (Benadryl) 25 mg IVPUSH Q6H PRN PRN Reason: pruritis Ephedrine Sulfate (Ephedrine Sulfate) 5 mg IVPUSH ASDIRECTED PRN PRN Reason: Hypotension Fentanyl (Sublimaze) Confirm Administered Dose 100 mcg .ROUTE .STK-MED ONE Stop: 02/17/19 07:41 Fentanyl (Sublimaze) 50 mcg IVPUSH Q5M PRN PRN Reason: Pain Hydromorphone HCl (Dilaudid) 0.5 mg IVPUSH Q15M PRN PRN Reason: Pain (severe 7-10) Lactated Ringer's (Ringers, Lactated) 1,000 mls @ 100 mls/hr IV .BOLUS ONE Stop: 02/16/19 22:27 Last Admin: 02/16/19 12:36 Dose: 100 mls/hr Promethazine HCl 25 mg/ Sodium (Chloride) 51 mls @ 100 mls/hr IV ONETIME ONE Stop: 02/16/19 17:25 Last Admin: 02/16/19 17:55 Dose: 100 mls/hr Magnesium Sulfate/Dextrose 1 (gm/ Premix) 100 mls @ 100 mls/hr IV ONETIME ONE Stop: 02/16/19 18:12 Last Admin: 02/16/19 20:07 Dose: 100 mls/hr Sodium Chloride (Normal Saline) Confirm Administered Dose 50 mls @ as directed .ROUTE .STK-MED ONE Stop: 02/16/19 17:38 Last Admin: 02/16/19 20:34 Dose: Not Given Cefazolin Sodium/Dextrose 2 gm (/ Premix) 50 mls @ 100 mls/hr IV Q8H PATRICIA Stop: 02/18/19 09:29 Last Admin: 02/18/19 09:04 Dose: 100 mls/hr Lidocaine HCl (Xylocaine-Mpf 1%) Confirm Administered Dose 10 mls @ as directed .ROUTE .STK-MED ONE Stop: 02/17/19 07:41 Sodium Chloride (Normal Saline) Confirm Administered Dose 2,000 mls @ as directed .ROUTE .STK-MED ONE Stop: 02/17/19 07:41 Phenylephrine HCl 1 mg/ Sodium (Chloride) 10.1 mls @ 1 mls/sec IV TITRATE PATRICIA; Protocol Sodium Chloride (Normal Saline) 500 mls @ 999 mls/hr IV .BOLUS ONE Stop: 02/17/19 16:20 Last Admin: 02/17/19 16:05 Dose: 999 mls/hr Sodium Chloride (Normal Saline) 500 mls @ 999 mls/hr IV .BOLUS ONE Stop: 02/17/19 18:07 Last Admin: 02/17/19 17:53 Dose: 999 mls/hr Sodium Chloride (Normal Saline) 1,000 mls @ 125 mls/hr IV ASDIRECTED PATRICIA Last Admin: 02/19/19 05:05 Dose: 75 mls/hr Diltiazem HCl 125 mg/ Sodium (Chloride) 125 mls @ 5 mls/hr IV TITRATE PATRICIA; Protocol Last Titration: 02/19/19 14:42 Dose: 2 mg/hr, 2 mls/hr Sodium Chloride (Normal Saline) 500 mls @ 500 mls/hr IV .BOLUS ONE Stop: 02/19/19 06:54 Last Admin: 02/19/19 06:02 Dose: 500 mls/hr Sodium Chloride (Normal Saline) 1,000 mls @ 50 mls/hr IV ASDIRECTED PATRICIA Last Admin: 02/20/19 11:39 Dose: 50 mls/hr Magnesium Sulfate 2 gm/ Premix 50 mls @ 25 mls/hr IV ONETIME ONE Stop: 02/20/19 10:30 Last Admin: 02/20/19 08:59 Dose: 25 mls/hr Iodine (Iodine 2% Mild Tincture) Confirm Administered Dose 30 ml .ROUTE .STK- MED ONE Stop: 02/17/19 06:26 Iodine (Iodine 2% Mild Tincture) Confirm Administered Dose 30 ml .ROUTE .STK- MED ONE Stop: 02/17/19 08:16 Last Admin: 02/17/19 10:05 Dose: 18 ml Ketamine HCl (Ketalar) Confirm Administered Dose 500 mg .ROUTE .STK-MED ONE Stop: 02/17/19 07:42 Metoprolol Succinate (Toprol Xl) 50 mg PO DAILY [facility] Metoprolol Succinate (Toprol Xl) 50 mg PO ONETIME ONE Stop: 02/17/19 06:46 Last Admin: 02/17/19 06:49 Dose: 50 mg Midazolam HCl (Versed 1 Mg/Ml) Confirm Administered Dose 2 mg .ROUTE .STK-MED ONE Stop: 02/17/19 07:42 Midazolam HCl (Versed 1 Mg/Ml) Confirm Administered Dose 2 mg .ROUTE .STK-MED ONE Stop: 02/17/19 09:44 Ondansetron HCl (Zofran) 4 mg IVPUSH ONETIME ONE Stop: 02/16/19 12:28 Last Admin: 02/16/19 12:38 Dose: 4 mg Ondansetron HCl (Zofran) 4 mg IVPUSH ONETIME ONE Stop: 02/16/19 13:23 Last Admin: 02/16/19 13:32 Dose: 4 mg Ondansetron HCl (Zofran) 4 mg IVPUSH Q6H PRN PRN Reason: Nausea/Vomiting Ondansetron HCl (Zofran) Confirm Administered Dose 4 mg .ROUTE .STK-MED ONE Stop: 02/17/19 07:41 Ondansetron HCl (Zofran) 4 mg IVPUSH ONETIME PRN PRN Reason: Nausea/Vomiting Phenylephrine HCl (Phenylephrine In Ns 100 Mcg/Ml) Confirm Administered Dose 1 mg .ROUTE .STK-MED ONE Stop: 02/17/19 07:41 Propofol (Diprivan 20 Ml) Confirm Administered Dose 400 mg .ROUTE .STK-MED ONE Stop: 02/17/19 07:41 Rivaroxaban (Xarelto) 10 mg PO DAILY [facility] Last Admin: 02/20/19 08:20 Dose: 10 mg Rivaroxaban (Xarelto) 10 mg PO ONETIME ONE Stop: 02/20/19 12:01 Last Admin: 02/20/19 12:05 Dose: 10 mg Scopolamine (Transderm-Scop) 1.5 mg TRDERM ONETIME PRN PRN Reason: PONV Senna/Docusate Sodium (Senna Plus) 2 tab PO ONETIME ONE Stop: 02/18/19 15:01 Last Admin: 02/18/19 15:33 Dose: 2 tab Tranexamic Acid (Cyklokapron) Confirm Administered Dose 1,000 mg .ROUTE .STK- MED ONE Stop: 02/17/19 06:26 Tranexamic Acid (Cyklokapron) Confirm Administered Dose 1,000 mg .ROUTE .STK- MED ONE Stop: 02/17/19 08:16 Last Admin: 02/17/19 10:18 Dose: 1,000 mg Vancomycin HCl (Vancomycin) Confirm Administered Dose 1 gm .ROUTE .STK-MED ONE Stop: 02/17/19 06:26 Vancomycin HCl (Vancomycin) Confirm Administered Dose 1 gm .ROUTE .STK-MED ONE Stop: 02/17/19 08:16 Last Admin: 02/17/19 10:13 Dose: 1 gm - Exam Quality Assessment: Denies: Supplemental Oxygen General: Reports: Alert, Oriented HEENT: Reports: Pupils Equal, Mucous Membr. Moist/[place] Neck: Reports: Supple Lungs: Reports: Clear to Auscultation, Normal Respiratory Effort Cardiovascular: Reports: Irregular Rhythm GI/Abdominal Exam: Normal Bowel Sounds, Soft, Non-Tender, No Organomegaly, No Distention, No Abnormal Bruit, No Mass Extremities: Normal Inspection, No Pedal Edema Skin: Reports: Warm, Dry, Intact Psy/Mental Status: Reports: Alert, Normal Affect, Normal Mood *Q Meaningful Use (DIS) - VTE *Q VTE Anticoagulation Contraindications: Medical/Procedure Contrai
--- NOTE | 2019-02-21 14:29 | OR ---
DATE OF OPERATION: 02/17/2019 SURGEON: Dominik aPrtida MD OPERATION PERFORMED: Left hip hemiarthroplasty. PREOPERATIVE DIAGNOSIS: Displaced left femoral neck fracture. POSTOPERATIVE DIAGNOSIS: Displaced left femoral neck fracture. ANESTHESIA: local MAC with spinal. MENTAL HEALTH PROGRAM MANAGER: Agueda Toribio PA-C. ESTIMATED BLOOD LOSS: 550 mL. COMPLICATIONS: None. CONDITION: Stable. IMPLANTS: 1. Paddy size 7 Accolade II stem. 2. [place] size 48 mm hemiarthroplasty head. 3. Paddy +4 mm neck sleeve. DESCRIPTION OF PROCEDURE: The patient was identified in the preop holding area. Proper site was marked and identified by the surgeon. The patient was taken back to the operating theater. After adequate anesthesia, the patient was placed in the right lateral decubitus position. Axillary roll was placed. The patient's gluteal fold was parallel to the floor. Pegs were placed and well padded. The left hip was then sterilely prepped and draped in the usual sterile fashion. OR time-out was performed. The patient received 2 g IV Ancef. At this time, standard posterior incision was made. This was centered over the greater trochanter. This was taken down to the IT band and gluteal fascia, which was incised along the incisional length. Charnley retractor was then placed. Short external rotators were identified and capsulotomy and takedown short external rotators was done from the level of the piriformis down to the level of the lesser trochanter. The fracture was identified. The fractured femoral head was then removed using a corkscrew. A clean up femoral neck cut was then completed. Starting with the 0 broach, I was able to broach up to a size 7, which was found to be rotationally and vertically stable. The correct neck length was then placed and a 0 head was trialed. She was a little bit short, so +4 was trialed and was found to have adequate yazidism of leg lengths and stable throughout range of motion. At this time, the size 7 Accolade II stem was impacted into place with a +4 neck sleeve and a 48 mm head. At this time, the hip was then relocated and #5 Ethibond suture was used for closure of the short external rotators and capsule. 1 L dilute Betadine solution was irrigated through the hip along with 3 L of pulse lavage irrigation with Ancef. Topical tranexamic acid as well as vancomycin powder was placed. #2 barbed suture was used for closure of the IT band and gluteal fascia, 2-0 Vicryl was used subcutaneously, and Prineo was used for the skin. The patient tolerated the procedure well and sent to PACU in stable condition. MMODAL /[id number]
--- NOTE | 2019-02-21 15:39 | PCM.SN ---
- Free Text/Narrative Note: Length of stay greater than 96 hours secondary to complications due to new onset A. fib with rapid ventricular response.
[2019-02-21] MEDS ORDERED: Diltiazem 180 MG Cap.CD PO SCH (21:00)
--- NOTE | 2019-02-22 07:05 | PCM.SURGPN ---
- General Info Date of Service: 02/21/19 POD#: 4 Functional Status: Reports: Pain Controlled, Tolerating Diet, Ambulating, Urinating, Other (The pt is prepared for discharge to [facility] for continued therapy.) - Patient Data Vitals - Most Recent: Last Vital Signs Temp 98.2 F 02/21/19 11:45 Pulse 87 02/21/19 11:45 Resp 18 02/21/19 11:45 BP 114/56 L 02/21/19 11:45 Pulse Ox 92 L 02/21/19 11:45 Weight - Most Recent: 177 lb 9.6 oz Jesús Results Last 24 Hrs: Microbiology 02/17/19 19:00 Aerobic Blood Culture - Preliminary Blood - Venous NO GROWTH AFTER 4 DAYS Anaerobic Blood Culture - Final Med Orders - Current: Current Medications Discontinued Medications Hydrocodone Bitart/Acetaminophen ([place] 325-5 Mg) 1 - 2 tab PO Q4H PRN PRN Reason: Pain Last Admin: 02/20/19 13:22 Dose: 1 tab Albuterol (Proventil Neb Soln) 2.5 mg NEB ONETIME ONE Stop: 02/17/19 06:41 Last Admin: 02/17/19 06:57 Dose: 2.5 mg Albuterol (Proventil Neb Soln) 2.5 mg NEB ONETIME PRN PRN Reason: bronchodilation Bisacodyl (Dulcolax) 5 mg PO DAILY PRN PRN Reason: Constipation Last Admin: 02/19/19 20:09 Dose: 5 mg Bupivacaine HCl (Sensorcaine-Mpf 0.25%) Confirm Administered Dose 30 ml .ROUTE .STK-MED ONE Stop: 02/17/19 06:26 Bupivacaine HCl (Sensorcaine-Mpf 0.25%) Confirm Administered Dose 30 ml .ROUTE .STK-MED ONE Stop: 02/17/19 08:16 Last Admin: 02/17/19 10:12 Dose: 20 ml Cefazolin Sodium (Ancef) Confirm Administered Dose 2 gm .ROUTE .STK-MED ONE Stop: 02/17/19 06:26 Cefazolin Sodium (Ancef) Confirm Administered Dose 2 gm .ROUTE .STK-MED ONE Stop: 02/17/19 07:41 Last Admin: 02/17/19 10:07 Dose: 2 gm Morphine Sulfate 8 mg/Epinephrine HCl 0.3 mg/Cefuroxime Sodium 750 mg/Ketorolac Tromethamine 30 mg/Sodium Chloride 27.9 ml 0 mg .XX ONETIME ONE Stop: 02/17/19 06:48 Last Admin: 02/17/19 18:54 Dose: Not Given Morphine Sulfate 8 mg/Epinephrine HCl 0.3 mg/Cefuroxime Sodium 750 mg/Ketorolac Tromethamine 30 mg/Sodium Chloride 27.9 ml 0 mg .XX ONETIME ONE Stop: 02/17/19 08:16 Last Admin: 02/17/19 10:12 Dose: 788.3 mg Cyclobenzaprine HCl (Flexeril) 10 mg PO TID PRN PRN Reason: Spasms Last Admin: 02/20/19 20:07 Dose: 10 mg Diltiazem HCl (Cardizem) 10 mg IVPUSH ONETIME ONE Stop: 02/19/19 04:55 Last Admin: 02/19/19 05:04 Dose: 10 mg Diltiazem HCl (Cardizem) 5 mg IVPUSH ONETIME ONE Stop: 02/19/19 08:03 Last Admin: 02/19/19 08:19 Dose: 5 mg Diltiazem HCl (Cardizem) 30 mg PO Q6HR [facility] Last Admin: 02/20/19 17:18 Dose: 30 mg Diltiazem HCl (Cardizem Cd) 120 mg PO Q24H [facility] Last Admin: 02/20/19 20:07 Dose: 120 mg Diltiazem HCl (Cardizem Cd) 180 mg PO Q24H [facility] Diphenhydramine HCl (Benadryl) 25 mg IVPUSH Q6H PRN PRN Reason: pruritis Docusate Sodium (Colace) 100 mg PO BID [facility] Last Admin: 02/21/19 08:57 Dose: 100 mg Ephedrine Sulfate (Ephedrine Sulfate) 5 mg IVPUSH ASDIRECTED PRN PRN Reason: Hypotension Fentanyl (Sublimaze) Confirm Administered Dose 100 mcg .ROUTE .STK-MED ONE Stop: 02/17/19 07:41 Fentanyl (Sublimaze) 50 mcg IVPUSH Q5M PRN PRN Reason: Pain Hydromorphone HCl (Dilaudid) 0.5 mg IVPUSH Q15M PRN PRN Reason: Pain (severe 7-10) Lactated Ringer's (Ringers, Lactated) 1,000 mls @ 100 mls/hr IV .BOLUS ONE Stop: 02/16/19 22:27 Last Admin: 02/16/19 12:36 Dose: 100 mls/hr Ondansetron HCl 8 mg/ Sodium (Chloride) 54 mls @ 108 mls/hr IV Q8H PRN PRN Reason: NAUSEA/VOMITING Promethazine HCl 25 mg/ Sodium (Chloride) 51 mls @ 100 mls/hr IV ONETIME ONE Stop: 02/16/19 17:25 Last Admin: 02/16/19 17:55 Dose: 100 mls/hr Magnesium Sulfate/Dextrose 1 (gm/ Premix) 100 mls @ 100 mls/hr IV ONETIME ONE Stop: 02/16/19 18:12 Last Admin: 02/16/19 20:07 Dose: 100 mls/hr Sodium Chloride (Normal Saline) Confirm Administered Dose 50 mls @ as directed .ROUTE .STK-MED ONE Stop: 02/16/19 17:38 Last Admin: 02/16/19 20:34 Dose: Not Given Cefazolin Sodium/Dextrose 2 gm (/ Premix) 50 mls @ 100 mls/hr IV Q8H PATRICIA Stop: 02/18/19 09:29 Last Admin: 02/18/19 09:04 Dose: 100 mls/hr Lidocaine HCl (Xylocaine-Mpf 1%) Confirm Administered Dose 10 mls @ as directed .ROUTE .STK-MED ONE Stop: 02/17/19 07:41 Sodium Chloride (Normal Saline) Confirm Administered Dose 2,000 mls @ as directed .ROUTE .STK-MED ONE Stop: 02/17/19 07:41 Phenylephrine HCl 1 mg/ Sodium (Chloride) 10.1 mls @ 1 mls/sec IV TITRATE PATRICIA; Protocol Sodium Chloride (Normal Saline) 500 mls @ 999 mls/hr IV .BOLUS ONE Stop: 02/17/19 16:20 Last Admin: 02/17/19 16:05 Dose: 999 mls/hr Sodium Chloride (Normal Saline) 500 mls @ 999 mls/hr IV .BOLUS ONE Stop: 02/17/19 18:07 Last Admin: 02/17/19 17:53 Dose: 999 mls/hr Sodium Chloride (Normal Saline) 1,000 mls @ 125 mls/hr IV ASDIRECTED PATRICIA Last Admin: 02/19/19 05:05 Dose: 75 mls/hr Diltiazem HCl 125 mg/ Sodium (Chloride) 125 mls @ 5 mls/hr IV TITRATE PATRICIA; Protocol Last Titration: 02/19/19 14:42 Dose: 2 mg/hr, 2 mls/hr Sodium Chloride (Normal Saline) 500 mls @ 500 mls/hr IV .BOLUS ONE Stop: 02/19/19 06:54 Last Admin: 02/19/19 06:02 Dose: 500 mls/hr Sodium Chloride (Normal Saline) 1,000 mls @ 50 mls/hr IV ASDIRECTED PATRICIA Last Admin: 02/20/19 11:39 Dose: 50 mls/hr Magnesium Sulfate 2 gm/ Premix 50 mls @ 25 mls/hr IV ONETIME ONE Stop: 02/20/19 10:30 Last Admin: 02/20/19 08:59 Dose: 25 mls/hr Iodine (Iodine 2% Mild Tincture) Confirm Administered Dose 30 ml .ROUTE .STK- MED ONE Stop: 02/17/19 06:26 Iodine (Iodine 2% Mild Tincture) Confirm Administered Dose 30 ml .ROUTE .STK- MED ONE Stop: 02/17/19 08:16 Last Admin: 02/17/19 10:05 Dose: 18 ml Ketamine HCl (Ketalar) Confirm Administered Dose 500 mg .ROUTE .STK-MED ONE Stop: 02/17/19 07:42 Lorazepam (Ativan) 1 mg IVPUSH Q4H PRN PRN Reason: Nausea Last Admin: 02/17/19 03:17 Dose: 1 mg Metoprolol Succinate (Toprol Xl) 50 mg PO DAILY [facility] Metoprolol Succinate (Toprol Xl) 50 mg PO ONETIME ONE Stop: 02/17/19 06:46 Last Admin: 02/17/19 06:49 Dose: 50 mg Metoprolol Succinate (Toprol Xl) 50 mg PO DAILY [facility] Last Admin: 02/21/19 09:09 Dose: Not Given Midazolam HCl (Versed 1 Mg/Ml) Confirm Administered Dose 2 mg .ROUTE .STK-MED ONE Stop: 02/17/19 07:42 Midazolam HCl (Versed 1 Mg/Ml) Confirm Administered Dose 2 mg .ROUTE .STK-MED ONE Stop: 02/17/19 09:44 Morphine Sulfate (Morphine) 2 mg IVPUSH Q2H PRN PRN Reason: Pain Naloxone HCl (Narcan) 0.1 mg IVPUSH Q5M PRN PRN Reason: Oversedation Ondansetron HCl (Zofran) 4 mg IVPUSH ONETIME ONE Stop: 02/16/19 12:28 Last Admin: 02/16/19 12:38 Dose: 4 mg Ondansetron HCl (Zofran) 4 mg IVPUSH ONETIME ONE Stop: 02/16/19 13:23 Last Admin: 02/16/19 13:32 Dose: 4 mg Ondansetron HCl (Zofran) 4 mg IVPUSH Q6H PRN PRN Reason: Nausea/Vomiting Ondansetron HCl (Zofran) Confirm Administered Dose 4 mg .ROUTE .STK-MED ONE Stop: 02/17/19 07:41 Ondansetron HCl (Zofran) 4 mg IVPUSH ONETIME PRN PRN Reason: Nausea/Vomiting Pantoprazole Sodium (Protonix) 40 mg PO DAILY@0700 [facility] Last Admin: 02/21/19 06:36 Dose: 40 mg Phenylephrine HCl (Phenylephrine In Ns 100 Mcg/Ml) Confirm Administered Dose 1 mg .ROUTE .STK-MED ONE Stop: 02/17/19 07:41 Polyethylene Glycol (Miralax) 17 gm PO DAILY [facility] Last Admin: 02/21/19 11:43 Dose: 17 gm Propofol (Diprivan 20 Ml) Confirm Administered Dose 400 mg .ROUTE .STK-MED ONE Stop: 02/17/19 07:41 Rivaroxaban (Xarelto) 10 mg PO DAILY [facility] Last Admin: 02/20/19 08:20 Dose: 10 mg Rivaroxaban (Xarelto) 10 mg PO ONETIME ONE Stop: 02/20/19 12:01 Last Admin: 02/20/19 12:05 Dose: 10 mg Rivaroxaban (Xarelto) 20 mg PO DAILY [facility] Last Admin: 02/21/19 08:57 Dose: 20 mg Scopolamine (Transderm-Scop) 1.5 mg TRDERM ONETIME PRN PRN Reason: PONV Senna (Senna) 8.6 mg PO BID PRN PRN Reason: Constipation Senna/Docusate Sodium (Senna Plus) 2 tab PO ONETIME ONE Stop: 02/18/19 15:01 Last Admin: 02/18/19 15:33 Dose: 2 tab Tranexamic Acid (Cyklokapron) Confirm Administered Dose 1,000 mg .ROUTE .STK- MED ONE Stop: 02/17/19 06:26 Tranexamic Acid (Cyklokapron) Confirm Administered Dose 1,000 mg .ROUTE .STK- MED ONE Stop: 02/17/19 08:16 Last Admin: 02/17/19 10:18 Dose: 1,000 mg Vancomycin HCl (Vancomycin) Confirm Administered Dose 1 gm .ROUTE .STK-MED ONE Stop: 02/17/19 06:26 Vancomycin HCl (Vancomycin) Confirm Administered Dose 1 gm .ROUTE .STK-MED ONE Stop: 02/17/19 08:16 Last Admin: 02/17/19 10:13 Dose: 1 gm - Exam Wound/Incisions: Dressing Dry and Intact General: Alert, Cooperative, No Acute Distress Lungs: Normal Respiratory Effort Extremities: Other (NVS intact for BLE. Mia's negative. Left thigh soft, nontender.) - Problem List Review Problem List Initiated/Reviewed/Updated: Yes - My Orders Last 24 Hours: Active Orders 24 hr Category Date Time Status Ready for Discharge [RC] PER UNIT ROUTINE Care 02/21/19 11:58 Active - Assessment Assessment (Free Text/Narrative):: POD#4 - s/p left hip endoprosthesis - Plan Plan (Free Text/Narrative):: 1. Discharge to [facility] for continued therapy. 2. Xarelto for VTE prophylaxis. 3. Further orders per Hospitalist service. The pt was evaluated by Dr. Jaquan neff.
== END 2019-02-21 14:00 | DRG 470 ==
LOC: JD.ED 12:13 → JD.MS 14:23 → JD.ICU 02-19 05:03
PROVIDERS: ADMIT Pediatrics; ATTEND Pediatrics
PROC: 0SRS0JZ Replacement of Left Hip Joint, Femoral Surface with Synthetic Substitute, Open Approach (ICD-10-PCS; principal; 2019-02-17)
DX: S72.012A Unspecified intracapsular fracture of left femur, initial encounter for closed fracture (principal); S72.002A Fracture of unspecified part of neck of left femur, initial encounter for closed fracture; I48.91 Unspecified atrial fibrillation; H54.7 Unspecified visual loss; I10 Essential (primary) hypertension; K21.9 Gastro-esophageal reflux disease without esophagitis; E83.42 Hypomagnesemia; D64.9 Anemia, unspecified; R00.1 Bradycardia, unspecified; D64.89 Other specified anemias; I95.89 Other hypotension; J44.9 Chronic obstructive pulmonary disease, unspecified; Z86.010 Personal history of colon polyps; Z79.899 Other long term (current) drug therapy; Z87.440 Personal history of urinary (tract) infections; Z90.49 Acquired absence of other specified parts of digestive tract; Z90.710 Acquired absence of both cervix and uterus; W01.0XXA Fall on same level from slipping, tripping and stumbling without subsequent striking against object, initial encounter; Y92.007 Garden or yard of unspecified non-institutional (private) residence as the place of occurrence of the external cause
CPT/HCPCS: 73502; 96361; 96374; 96376; 99285; J2405 ×2; J7120; 01214; 36415; 71045; 71045-26; 73501-26-LT; 73501-LT; 80053; 83735; 84484; 85025; 85610; 85730; 86850; 86900; 86901; 87040; 87641; 93005; 93306; 94640; 97110-GO; 97110-GP; 97116-GP; 97161-GP; 97165-GO; 97530-GO; 97530-GP; 97535-GO; 99284; A9270-GY; C1776; J0171; J0690; J0697; J1885; J2001; J2060; J2250; J2270; J2370; J2550; J2704; J3010; J3370; J3475; J3490; J7030; J7040; J7050

== ENCOUNTER 2019-03-24 09:50 | Emergency (ER) | payer MEDICARE, OTHER ==
[2019-03-24 10:07] VITALS: BP 113/57; PULSE 100
[2019-03-24] MEDS ORDERED: Sodium Chloride 0.9% 10 ML Syringe FLUSH PRN (10:16)
[2019-03-24] MEDS ORDERED: Acetaminophen 325 MG Tab PO ONE (10:56)
--- NOTE | 2019-03-24 11:57 | EDM.PDOC ---
ED HPI GENERAL MEDICAL PROBLEM - General Chief Complaint: Cardiovascular Problem Stated Complaint: RACING HEARTBEAT Time Seen by Provider: 03/24/19 10:01 Source of Information: Reports: Patient, Family History Limitations: Reports: No Limitations - History of Present Illness INITIAL COMMENTS - FREE TEXT/NARRATIVE: The patient presents with palpitations. She said around 0200 she woke up with them and again she had some this morning. Her heart rate was 120. She denies chest pain or shortness of breath. She has no abdominal pain, nausea or vomiting. She has no fever or chills or cough. She was in the hospital in February for a hip fracture and repair. While she was in she went into A-fib with RVR. She was treated with cardizem and she slowed down. She went to the alf after that and now for the past 2 days she has been at home. She is not sure if she still is in A-fib. She was supposed to get an event monitor but that did not happen. Onset: Gradual Duration: Day(s): (Last night) Severity: Moderate Improves with: Reports: Immobilization Worsens with: Reports: Movement Associated Symptoms: Reports: No Other Symptoms - Related Data Allergies Allergy/AdvReac Type Severity Reaction Status Date / Time No Known Allergies Allergy Verified 03/24/19 10:02 Home Meds: Home Meds Omeprazole 20 mg PO DAILY 12/13/14 [History] Fluticasone Propionate [Flovent] 1 spray INH ASDIRECTED PRN 02/16/19 [History] Rivaroxaban [Xarelto] 20 mg PO DAILY #30 tablet 02/21/19 [Rx] Past Medical History HEENT History: Reports: Impaired Vision Cardiovascular History: Reports: Hypertension Respiratory History: Reports: Bronchitis, Recurrent Gastrointestinal History: Reports: Colon Polyp, Diverticulosis, GERD Genitourinary History: Reports: UTI, Recurrent [employer] History: Reports: Dermatologic History: Reports: Eczema - Past Surgical History HEENT Surgical History: Reports: Cataract Surgery GI Surgical History: Reports: Cholecystectomy Female Surgical History: Reports: Hysterectomy Social & Family History - Family History Family Medical History: Noncontributory - Tobacco Use Smoking Status *Q: Never Smoker - Caffeine Use Caffeine Use: Reports: Coffee - Recreational Drug Use Recreational Drug Use: No ED ROS GENERAL - Review of Systems Review Of Systems: See Below Constitutional: Reports: No Symptoms HEENT: Reports: No Symptoms Respiratory: Reports: No Symptoms Cardiovascular: Reports: Palpitations. Denies: Chest Pain Endocrine: Reports: No Symptoms GI/Abdominal: Reports: No Symptoms : Reports: No Symptoms Musculoskeletal: Reports: Other (Left hip pain) ED EXAM, GENERAL - Physical Exam Exam: See Below Exam Limited By: No Limitations General Appearance: Alert, No Apparent Distress Ears: Normal External Exam Nose: Normal Inspection Head: Atraumatic, Normocephalic Neck: Normal Inspection Respiratory/Chest: No Respiratory Distress, Lungs Clear, Normal Breath Sounds Cardiovascular: Regular Rate, Rhythm, No Edema, No Murmur GI/Abdominal: Soft, Non-Tender, No Organomegaly, No Mass Back Exam: Normal Inspection EKG INTERPRETATION EKG Date: 03/24/19 Time: 10:20 Rhythm: NSR Rate (Beats/Min): 89 [place]: Normal P-Wave: Present QRS: Normal ST-T: Normal QT: Normal Course - Vital Signs Last Recorded V/S: Last Vital Signs Temp 98.5 F 03/24/19 10:02 Pulse 100 03/24/19 10:02 Resp 19 03/24/19 10:02 BP 113/57 L 03/24/19 10:02 Pulse Ox 98 03/24/19 10:02 - Orders/Labs/Meds Orders: Active Orders 24 hr Category Date Time Status Cardiac Monitoring [RC] . DIRECTED Care 03/24/19 10:16 Active EKG Documentation Completion [RC] STAT Care 03/24/19 10:16 Active Influenza Vaccine Charge [RC] .DISCHARGE Care 03/24/19 10:10 Active Peripheral IV Care [RC] . DIRECTED Care 03/24/19 10:16 Active Sodium Chloride 0.9% [Saline Flush] Med 03/24/19 10:16 Active 10 ml FLUSH ASDIRECTED PRN Peripheral IV Insertion Adult [OM.PC] Stat Oth 03/24/19 10:16 Ordered Medication Orders Sodium Chloride (Saline Flush) 10 ml FLUSH ASDIRECTED PRN PRN Reason: Keep Vein Open Last Admin: 03/24/19 10:54 Dose: 10 ml Labs: Laboratory Tests 03/24/19 03/24/19 Range/Units 10:30 10:30 WBC 6.61 (3.98-10.04) K/mm3 RBC 4.07 (3.98-5.22) M/mm3 Hgb 11.7 (11.2-15.7) gm/dl Hct 36.2 (34.1-44.9) % MCV 88.9 (79.4-94.8) fl MCH 28.7 (25.6-32.2) pg MCHC 32.3 (32.2-35.5) g/dl RDW Std Deviation 43.6 (36.4-46.3) fL Plt Count 223 (182-369) K/mm3 MPV 10.6 (9.4-12.3) fl Neut % (Auto) 68.2 (34.0-71.1) % Lymph % (Auto) 22.2 (19.3-51.7) % [place] % (Auto) 9.1 (4.7-12.5) % Eos % (Auto) 0.2 L (0.7-5.8) Baso % (Auto) 0.3 (0.1-1.2) % Neut # (Auto) 4.51 (1.56-6.13) K/mm3 Lymph # (Auto) 1.47 (1.18-3.74) K/mm3 [place] # (Auto) 0.60 H (0.24-0.36) K/mm3 Eos # (Auto) 0.01 L (0.04-0.36) K/mm3 Baso # (Auto) 0.02 (0.01-0.08) K/mm3 Sodium 139 (136-145) mEq/L Potassium 3.6 (3.5-5.1) mEq/L Chloride 103 (98-107) mEq/L Carbon Dioxide 25 (21-32) mEq/L Anion Gap 14.6 (5-15) BUN 10 (7-18) mg/dL Creatinine 0.8 (0.55-1.02) mg/dL Est Cr Clr Drug Dosing 46.26 mL/min Estimated GFR (MDRD) > 60 (>60) mL/min BUN/Creatinine Ratio 12.5 L (14-18) Glucose 135 H (83-115) mg/dL Calcium 8.9 (8.5-10.1) mg/dL Total Bilirubin 0.4 (0.2-1.0) mg/dL AST 18 (15-37) U/L ALT 29 (14-59) U/L Alkaline Phosphatase 108 (46-116) U/L Troponin I 0.026 (0.00-0.056) ng/mL Total Protein 6.7 (6.4-8.2) g/dl Albumin 3.0 L (3.4-5.0) g/dl Globulin 3.7 gm/dL Albumin/Globulin Ratio 0.8 L (1-2) TSH 3rd Generation 1.042 (0.358-3.74) uIU/mL Meds: Medications Generic Name Dose Route Start Last Admin Trade Name Freq PRN Reason Stop Dose Admin Sodium Chloride 10 ml 03/24/19 10:16 03/24/19 10:54 Saline Flush FLUSH 10 ml ASDIRECTED PRN Administration Keep Vein Open Discontinued Medications Generic Name Dose Route Start Last Admin Trade Name Freq PRN Reason Stop Dose Admin Acetaminophen 650 mg 03/24/19 10:56 03/24/19 10:58 Tylenol PO 03/24/19 10:57 650 mg NOW ONE Administration Influenza Virus Vaccine 1 each 03/24/19 10:10 Pharmacy To Dose - Influenza Vaccine IM 03/24/19 10:11 ONETIME ONE Influenza Virus Vaccine 180 mcg 03/24/19 10:30 03/24/19 10:53 Fluzone High-Dose 2019-20 Syringe IM 03/24/19 10:31 180 mcg .ONCE ONE Administration - Re-Assessments/Exams Free Text/Narrative Re-Assessment/Exam: 03/24/19 11:56 I ordered an EKG and labs. Her EKG shows a NSR with no acute changes. Her CBC and CMP look good. Her TSH and troponin are normal. I will get her on a holter monitor. She has a follow up appointment with Dr Sam on Tuesday. Departure - Departure Time of Disposition: 12:00 Disposition: Home, Self-Care 01 Condition: Good Clinical Impression: Palpitations Referrals: Carolynn Goins NP [Primary Care Provider] - Bijan Sam MD [Physician] - 3 Days Additional Instructions: Wear the holter monitor for 48 hours. Keep taking your medication as prescribed. Please return if you are worse. - My Orders Last 24 Hours: My Active Orders 03/24/19 10:10 Influenza Vaccine Charge [RC] .DISCHARGE 03/24/19 10:16 Cardiac Monitoring [RC] . DIRECTED EKG Documentation Completion [RC] STAT Peripheral IV Care [RC] . DIRECTED Sodium Chloride 0.9% [Saline Flush] 10 ml FLUSH ASDIRECTED PRN Peripheral IV Insertion Adult [OM.PC] Stat - Assessment/Plan Last 24 Hours: My Active Orders 03/24/19 10:10 Influenza Vaccine Charge [RC] .DISCHARGE 03/24/19 10:16 Cardiac Monitoring [RC] . DIRECTED EKG Documentation Completion [RC] STAT Peripheral IV Care [RC] . DIRECTED Sodium Chloride 0.9% [Saline Flush] 10 ml FLUSH ASDIRECTED PRN Peripheral IV Insertion Adult [OM.PC] Stat
== END 2019-03-24 12:26 | disposition home or self-care (01) ==
LOC: JD.ED 09:50
DX: R00.2 Palpitations (principal); I10 Essential (primary) hypertension; I48.91 Unspecified atrial fibrillation; K21.9 Gastro-esophageal reflux disease without esophagitis; Z79.899 Other long term (current) drug therapy; Z79.01 Long term (current) use of anticoagulants; Z23 Encounter for immunization
CPT/HCPCS: 36415; 80053; 84443; 84484; 85025; 90662; 93005; 93225; 93226; 99285; A9270; G0008; 93010; 99283

== ENCOUNTER 2019-11-27 14:19 | Inpatient (IN) | payer MEDICARE, OTHER ==
[2019-11-27] MEDS ORDERED: Sodium Chloride 0.9% 1,000 ML IV ONE ×2 (14:36→16:30)
[2019-11-27] MEDS ORDERED: Ondansetron 4 MG/2 ML SDV IVPUSH ONE (14:36)
[2019-11-27] MEDS: Sodium Chloride 0.9% 10 ML Syringe FLUSH PRN (14:45)
--- NOTE | 2019-11-27 14:51 | EDM.PDOC ---
ED HPI GENERAL MEDICAL PROBLEM - General Chief Complaint: General Stated Complaint: [facility] Time Seen by Provider: 11/27/19 14:37 Source of Information: Reports: Patient, RN Notes Reviewed History Limitations: Reports: No Limitations - History of Present Illness INITIAL COMMENTS - FREE TEXT/NARRATIVE: Patient is an 84-year-old female who presents to the ED for evaluation of possible dehydration and constipation. Patient states that this is been going on for the last week, and states that she was evaluated on Tuesday and was given a bottle of magnesium citrate, states she had a good bowel movement, but still states that her upper abdomen feels sore, and she is not had a bowel movement since then. She has been using orange and cranberry juice, nothing seems to really be helping. She notes that she has not really had much of an appetite, has felt nauseous, and feels just generalized weakness. She notes that today there is a change that she just could not keep any sort of water down. Patient denies any fevers or chills, cough or shortness of breath, or any urinary issues , like dysuria, frequency or urgency.. Her primary care provider is Socorro Goins. - Related Data Allergies Allergy/AdvReac Type Severity Reaction Status Date / Time No Known Allergies Allergy Verified 03/24/19 10:02 Home Meds: Home Meds Omeprazole 20 mg PO DAILY 12/13/14 [History] Fluticasone Propionate [Flovent] 1 spray INH ASDIRECTED PRN 02/16/19 [History] Rivaroxaban [Xarelto] 20 mg PO DAILY #30 tablet 02/21/19 [Rx] Metoprolol Succinate [Toprol XL 50mg] 50 mg PO DAILY 11/27/19 [History] Past Medical History HEENT History: Reports: Impaired Vision Cardiovascular History: Reports: Hypertension Respiratory History: Reports: Bronchitis, Recurrent Gastrointestinal History: Reports: Colon Polyp, Diverticulosis, GERD Genitourinary History: Reports: UTI, Recurrent [employer]OR MALTED MILK History: Reports: Dermatologic History: Reports: Eczema - Past Surgical History HEENT Surgical History: Reports: Cataract Surgery GI Surgical History: Reports: Cholecystectomy Female Surgical History: Reports: Hysterectomy Social & Family History - Family History Family Medical History: Noncontributory - Caffeine Use Caffeine Use: Reports: Coffee ED ROS GENERAL - Review of Systems Review Of Systems: See Below Constitutional: Reports: Malaise (generalized), Weakness (generalized), Decreased Appetite. Denies: Fever, Chills Respiratory: Denies: Shortness of Breath, Cough Cardiovascular: Denies: Chest Pain GI/Abdominal: Reports: Abdominal Pain (upper abdomen pain), Constipation, Decreased Appetite, Nausea. Denies: Black Stool, Bloody Stool, Diarrhea, Vomiting : Denies: Dysuria, Frequency, Urgency ED EXAM, GENERAL - Physical Exam Exam: See Below Exam Limited By: No Limitations General Appearance: Alert, WD/WN, No Apparent Distress Eye Exam: Bilateral Eye: EOMI, Normal Inspection, PERRL Ears: Normal External Exam Throat/Mouth: Normal Inspection, Normal Lips, Normal Teeth, Normal Gums, Normal Oropharynx (mildly dry oral cavity.), Normal Voice, No Airway Compromise Head: Atraumatic, Normocephalic Neck: Normal Inspection Respiratory/Chest: No Respiratory Distress, Lungs Clear, Normal Breath Sounds, No Accessory Muscle Use, Chest Non-Tender Cardiovascular: Normal Peripheral Pulses, No Edema, No Murmur, Other (regularly irregular pulse) Peripheral Pulses: 3+: Radial (L), Radial (R) GI/Abdominal: Normal Bowel Sounds, Soft, No Distention, No Mass, Tender (in the upper abdomen mainly) Extremities: Normal Inspection, Normal Capillary Refill Neurological: Alert, Oriented, Normal Cognition, No Motor/Sensory Deficits Psychiatric: Normal Affect, Normal Mood Skin Exam: Warm, Dry, Intact, Normal Color, No Rash EKG INTERPRETATION EKG Date: 11/27/19 Time: 14:40 Rhythm: A-Fib (With a rate of 80-160bpm) Rate (Beats/Min): 121 [place]: Normal P-Wave: Absent QRS: Normal ST-T: Depressed (ST depression V3 through V6, lead I lead to lead III and aVF) QT: Prolonged (Mildly at 479) Comparison: Change From Previous EKG (reviewed from 03/2019) EKG Interpretation Comments: EKG reviewed by Dr. Flores and myself. He did appreciate A. fib with some ST depression. Course - Vital Signs Last Recorded V/S: Last Vital Signs Temp 98.2 F 11/27/19 14:26 Pulse 113 H 11/27/19 14:29 Resp 16 11/27/19 14:29 BP 140/77 11/27/19 14:29 Pulse Ox 100 11/27/19 14:29 Orthostatic Blood Pressure [ 129/109 Sitting] Orthostatic Blood Pressure [ 140/77 Supine] - Orders/Labs/Meds Orders: Active Orders 24 hr Category Date Time Status Admission Status [Patient Status] [ADT] Routine ADT 11/27/19 16:37 Active EKG Documentation Completion [RC] STAT Care 11/27/19 14:43 Active Insert Urinary Catheter [OM.PC] Q24H Care 11/27/19 16:45 Ordered Peripheral IV Care [RC] . DIRECTED Care 11/27/19 14:36 Active Urinary Catheter Assessment [RC] ASDIRECTED Care 11/27/19 16:33 Active Abdomen Series w Chest 1V [CR] Stat Exams 11/27/19 14:34 Taken Dexa Bone Density Body [MY] Timed Exams 11/28/19 08:00 Ordered PHOSPHORUS [CHEM] Stat Lab 11/27/19 15:20 Received PRO B-TYPE NATRIUR PEPT,BNPPRO [CHEM] Stat Lab 11/27/19 15:20 Received PROTEIN ELEC INTERP, SERUM [REF] Stat Lab 11/27/19 17:12 Received PROTEIN ELECTRO, RANDOM URINE Stat Lab 11/27/19 16:24 Ordered PTH, INTACT [REF] Stat Lab 11/27/19 17:12 Received PTHRP (PTH-RELATED PEPTIDE) [REF] Stat Lab 11/27/19 17:12 Received TSH [CHEM] Stat Lab 11/27/19 15:20 Received UA W/MICROSCOPIC [URIN] Stat Lab 11/27/19 14:35 Ordered VITAMIN A, SERUM [REF] Stat Lab 11/27/19 17:12 Received VITAMIN D,25-HYDROXY [CHEM] Stat Lab 11/27/19 15:20 Received Calcitonin ([place]) [Miacalcin] Med 11/27/19 17:00 Active 280 units SUBCUT Q12H Diltiazem [Cardizem] 100 mg Med 11/27/19 15:00 Active Sodium Chloride 0.9% [Normal Saline] 100 ml IV TITRATE Sodium Chloride 0.9% [Normal Saline] 1,000 ml Med 11/27/19 16:30 Active IV ONETIME Sodium Chloride 0.9% [Saline Flush] Med 11/27/19 14:35 Active 10 ml FLUSH ASDIRECTED PRN Peripheral IV Insertion Adult [OM.PC] Stat Oth 11/27/19 14:35 Ordered Medication Orders Calcitonin [place] (Miacalcin) 280 units SUBCUT Q12H PATRICIA Last Admin: 11/27/19 17:46 Dose: 280 units Diltiazem HCl 100 mg/ Sodium (Chloride) 100 mls @ 10 mls/hr IV TITRATE PATRICIA; Protocol Last Admin: 11/27/19 15:43 Dose: 10 mg/hr, 10 mls/hr Sodium Chloride (Normal Saline) 1,000 mls @ 200 mls/hr IV ONETIME ONE Stop: 11/27/19 21:29 Sodium Chloride (Saline Flush) 10 ml FLUSH ASDIRECTED PRN PRN Reason: Keep Vein Open Last Admin: 11/27/19 14:45 Dose: 10 ml Labs: Laboratory Tests 11/27/19 11/27/19 11/27/19 Range/Units 15:20 15:20 15:20 WBC 10.52 H (3.98-10.04) K/mm3 RBC 4.50 (3.98-5.22) M/mm3 Hgb 12.7 (11.2-15.7) gm/dl Hct 39.5 (34.1-44.9) % MCV 87.8 (79.4-94.8) fl MCH 28.2 (25.6-32.2) pg MCHC 32.2 (32.2-35.5) g/dl RDW Std Deviation 40.5 (36.4-46.3) fL Plt Count 220 (182-369) K/mm3 MPV 11.1 (9.4-12.3) fl Neut % (Auto) 73.4 H (34.0-71.1) % Lymph % (Auto) 12.2 L (19.3-51.7) % [place] % (Auto) 13.8 H (4.7-12.5) % Eos % (Auto) 0.2 L (0.7-5.8) Baso % (Auto) 0.2 (0.1-1.2) % Neut # (Auto) 7.73 H (1.56-6.13) K/mm3 Lymph # (Auto) 1.28 (1.18-3.74) K/mm3 [place] # (Auto) 1.45 H (0.24-0.36) K/mm3 Eos # (Auto) 0.02 L (0.04-0.36) K/mm3 Baso # (Auto) 0.02 (0.01-0.08) K/mm3 Manual Slide Review Normal smear Sodium 140 (136-145) mEq/L Potassium 3.5 (3.5-5.1) mEq/L Chloride 100 (98-107) mEq/L Carbon Dioxide 28 (21-32) mEq/L Anion Gap 15.5 H (5-15) BUN 21 H (7-18) mg/dL Creatinine 1.4 H (0.55-1.02) mg/dL Est Cr Clr Drug Dosing 25.95 mL/min Estimated GFR (MDRD) 36 (>60) mL/min BUN/Creatinine Ratio 15.0 (14-18) Glucose 134 H (83-115) mg/dL Calcium 15.4 H* D (8.5-10.1) mg/dL Total Bilirubin 1.1 H (0.2-1.0) mg/dL AST 55 H (15-37) U/L ALT 29 (14-59) U/L Alkaline Phosphatase 97 (46-116) U/L CK-MB (CK-2) (0-3.6) ng/ml Troponin I < 0.017 (0.00-0.056) ng/mL Total Protein 7.3 (6.4-8.2) g/dl Albumin 3.2 L (3.4-5.0) g/dl Globulin 4.1 gm/dL Albumin/Globulin Ratio 0.8 L (1-2) 06/16/20 Range/Units 15:20 WBC (3.98-10.04) K/mm3 RBC (3.98-5.22) M/mm3 Hgb (11.2-15.7) gm/dl Hct (34.1-44.9) % MCV (79.4-94.8) fl MCH (25.6-32.2) pg MCHC (32.2-35.5) g/dl RDW Std Deviation (36.4-46.3) fL Plt Count (182-369) K/mm3 MPV (9.4-12.3) fl Neut % (Auto) (34.0-71.1) % Lymph % (Auto) (19.3-51.7) % [place] % (Auto) (4.7-12.5) % Eos % (Auto) (0.7-5.8) Baso % (Auto) (0.1-1.2) % Neut # (Auto) (1.56-6.13) K/mm3 Lymph # (Auto) (1.18-3.74) K/mm3 [place] # (Auto) (0.24-0.36) K/mm3 Eos # (Auto) (0.04-0.36) K/mm3 Baso # (Auto) (0.01-0.08) K/mm3 Manual Slide Review Sodium (136-145) mEq/L Potassium (3.5-5.1) mEq/L Chloride (98-107) mEq/L Carbon Dioxide (21-32) mEq/L Anion Gap (5-15) BUN (7-18) mg/dL Creatinine (0.55-1.02) mg/dL Est Cr Clr Drug Dosing mL/min Estimated GFR (MDRD) (>60) mL/min BUN/Creatinine Ratio (14-18) Glucose (83-115) mg/dL Calcium (8.5-10.1) mg/dL Total Bilirubin (0.2-1.0) mg/dL AST (15-37) U/L ALT (14-59) U/L Alkaline Phosphatase (46-116) U/L CK-MB (CK-2) 2.4 (0-3.6) ng/ml Troponin I (0.00-0.056) ng/mL Total Protein (6.4-8.2) g/dl Albumin (3.4-5.0) g/dl Globulin gm/dL Albumin/Globulin Ratio (1-2) Meds: Medications Generic Name Dose Route Start Last Admin Trade Name Freq PRN Reason Stop Dose Admin Calcitonin [place] 280 units 11/27/19 17:00 11/27/19 17:46 Miacalcin SUBCUT 280 units Q12H PATRICIA Administration Diltiazem HCl 100 mg/ Sodium 100 mls @ 10 mls/hr 11/27/19 15:00 11/27/19 15: 43 Chloride IV 10 mg/hr TITRATE PATRICIA 10 mls/hr Administration Protocol 10 MG/HR Sodium Chloride 1,000 mls @ 200 mls/hr 11/27/19 16:30 Normal Saline IV 11/27/19 21:29 ONETIME ONE Sodium Chloride 10 ml 11/27/19 14:35 11/27/19 14:45 Saline Flush FLUSH 10 ml ASDIRECTED PRN Administration Keep Vein Open Discontinued Medications Generic Name Dose Route Start Last Admin Trade Name Freq PRN Reason Stop Dose Admin Diltiazem HCl 10 mg 11/27/19 14:52 11/27/19 15:34 Cardizem IVPUSH 11/27/19 14:53 10 mg ONETIME ONE Administration Sodium Chloride 1,000 mls @ 999 mls/hr 11/27/19 14:36 11/27/19 14:45 Normal Saline IV 11/27/19 15:36 999 mls/hr ONETIME ONE Administration Pamidronate Disodium 90 mg/ 1,000 mls @ 166.667 mls/hr 11/27/19 16:44 17:48 Sodium Chloride IV 11/27/19 16:45 166.667 mls/hr ONETIME ONE Administration Ondansetron HCl 4 mg 11/27/19 14:36 11/27/19 14:45 Zofran IVPUSH 11/27/19 14:37 4 mg ONETIME ONE Administration - Re-Assessments/Exams Free Text/Narrative Re-Assessment/Exam: 11/27/19 14:55 Patient presents to the ED for her upper abdomen pain, generalized weakness. Patient states that she has been having issues with constipation however on the court recording monitor did show atrial fibrillation, EKG was done, demonstrates A. fib with a rate of 80-160; Dr. Flores did appreciate ST depression in V3 through V6, 1-3 and aVF. QTC is mildly prolonged. Patient states he did not take her metoprolol today as she felt nauseated and just not been able to tolerate much. She also states that her mouth is been very dry. IV will be placed with some IV fluids, 4 mg Zofran for nausea, labs to be drawn as well, with a chest x-ray and abdomen x-ray to rule out obstruction in nature. Dr. Flores recommended starting a Cardizem drip, and also giving 10 mg IV push. I did do this as well. 11/27/19 16:23 Patient's labs have returned, and she is hypercalcemic at 15.4, this was discussed with Dr. Flores, and he suggested doing a PTH and ionized calcium, I did also talk with our hospitalist for admission, and she recommended a few more labs, and will be in to see the patient. Departure - Departure Time of Disposition: 16:29 Disposition: Admitted As Inpatient 64 Condition: Good Clinical Impression: Hypercalcemia - Discharge Information *PRESCRIPTION DRUG MONITORING PROGRAM REVIEWED*: No *COPY OF PRESCRIPTION DRUG MONITORING REPORT IN PATIENT MARTHA: No Referrals: Carolynn Goins SQUARING MACHINE OPERATOR [Primary Care Provider] - Forms: ED Department Discharge Sepsis Event Note (ED) - Evaluation Sepsis Screening Result: No Definite Risk - Focused Exam Vital Signs: Vital Signs Temp Pulse Resp BP Pulse Ox 11/27/19 14:29 113 H 16 140/77 100 11/27/19 14:26 98.2 F 108 H 16 140/77 96 - My Orders Last 24 Hours: My Active Orders 11/27/19 14:34 Abdomen Series w Chest 1V [CR] Stat 11/27/19 14:35 UA W/MICROSCOPIC [URIN] Stat Sodium Chloride 0.9% [Saline Flush] 10 ml FLUSH ASDIRECTED PRN Peripheral IV Insertion Adult [OM.PC] Stat 11/27/19 14:36 Peripheral IV Care [RC] . DIRECTED 11/27/19 14:43 EKG Documentation Completion [RC] STAT 11/27/19 15:00 Diltiazem [Cardizem] 100 mg Sodium Chloride 0.9% [Normal Saline] 100 ml IV TITRATE 11/27/19 15:20 PHOSPHORUS [CHEM] Stat PRO B-TYPE NATRIUR PEPT,BNPPRO [CHEM] Stat TSH [CHEM] Stat VITAMIN D,25-HYDROXY [CHEM] Stat 11/27/19 16:24 PROTEIN ELECTRO, RANDOM URINE Stat 11/27/19 16:30 Sodium Chloride 0.9% [Normal Saline] 1,000 ml IV ONETIME 11/27/19 16:33 Urinary Catheter Assessment [RC] ASDIRECTED 11/27/19 16:37 Admission Status [Patient Status] [ADT] Routine 11/27/19 16:45 Insert Urinary Catheter [OM.PC] Q24H 11/27/19 17:00 Calcitonin ([place]) [Miacalcin] 280 units SUBCUT Q12H 11/27/19 17:12 PROTEIN ELEC INTERP, SERUM [REF] Stat PTH, INTACT [REF] Stat PTHRP (PTH-RELATED PEPTIDE) [REF] Stat VITAMIN A, SERUM [REF] Stat 11/28/19 08:00 Dexa Bone Density Body [MY] Timed - Assessment/Plan Last 24 Hours: My Active Orders 11/27/19 14:34 Abdomen Series w Chest 1V [CR] Stat 11/27/19 14:35 UA W/MICROSCOPIC [URIN] Stat Sodium Chloride 0.9% [Saline Flush] 10 ml FLUSH ASDIRECTED PRN Peripheral IV Insertion Adult [OM.PC] Stat 11/27/19 14:36 Peripheral IV Care [RC] . DIRECTED 11/27/19 14:43 EKG Documentation Completion [RC] STAT 11/27/19 15:00 Diltiazem [Cardizem] 100 mg Sodium Chloride 0.9% [Normal Saline] 100 ml IV TITRATE 11/27/19 15:20 PHOSPHORUS [CHEM] Stat PRO B-TYPE NATRIUR PEPT,BNPPRO [CHEM] Stat TSH [CHEM] Stat VITAMIN D,25-HYDROXY [CHEM] Stat 11/27/19 16:24 PROTEIN ELECTRO, RANDOM URINE Stat 11/27/19 16:30 Sodium Chloride 0.9% [Normal Saline] 1,000 ml IV ONETIME 11/27/19 16:33 Urinary Catheter Assessment [RC] ASDIRECTED 11/27/19 16:37 Admission Status [Patient Status] [ADT] Routine 11/27/19 16:45 Insert Urinary Catheter [OM.PC] Q24H 11/27/19 17:00 Calcitonin ([place]) [Miacalcin] 280 units SUBCUT Q12H 11/27/19 17:12 PROTEIN ELEC INTERP, SERUM [REF] Stat PTH, INTACT [REF] Stat PTHRP (PTH-RELATED PEPTIDE) [REF] Stat VITAMIN A, SERUM [REF] Stat 11/28/19 08:00 Dexa Bone Density Body [MY] Timed
[2019-11-27] MEDS ORDERED: Diltiazem 50 MG/10 ML SDV IVPUSH ONE (14:52)
[2019-11-27] MEDS ORDERED: Diltiazem 100 MG in Sodium Chloride 0.9% 100 ML IV SCH (15:00)
[2019-11-27] MEDS ORDERED: Zoledronic Acid 4 MG in Sodium Chloride 0.9% 100 ML IV ONE (16:33)
[2019-11-27] MEDS ORDERED: Ondansetron 4 MG/2 ML SDV IV PRN (17:40)
[2019-11-27] MEDS ORDERED: Acetaminophen 325 MG Tab PO PRN (17:40)
[2019-11-27] MEDS ORDERED: Ondansetron 4 MG Tab.DIS PO PRN (17:40)
[2019-11-27] MEDS: Calcitonin (Salmon) 200 Units/ML 2 ML MDV SUBCUT SCH (17:46)
--- NOTE | 2019-11-27 18:04 | PCM.HP.2 ---
H&P History of Present Illness - General Date of Service: 11/27/19 Admit Problem/Dx: Admission Diagnosis/Problem Admission Diagnosis/Problem Hypercalcemia - History of Present Illness Initial Comments - Free Text/Narative: This is an 84-year-old female with past medical history of atrial fibrillation and hypertension who comes to the emergency department for constipation and "dehydration" As per patient she was constipated for approximately 8 days to the point that on 11/21 she stopped eating. During this time she continued to drink about 8 to 12 glasses of water a day. She went to outpatient [facility] and was prescribed magnesium after which he had a large bowel movement on Tuesday described followed by multiple diarrheal -like bowel movements. Associates this to fatigue, decreased appetite, chills, weakness, palpitations, nausea, vomiting. She denies any chest pain, SOTO, PND, orthopnea, shortness of breath, lower extremity edema. - Related Data Allergies/Adverse Reactions: Allergies Allergy/AdvReac Type Severity Reaction Status Date / Time No Known Allergies Allergy Verified 03/24/19 10:02 Home Medications: Home Meds Omeprazole 20 mg PO DAILY 12/13/14 [History] Fluticasone Propionate [Flovent] 1 spray INH ASDIRECTED PRN 02/16/19 [History] Rivaroxaban [Xarelto] 20 mg PO DAILY #30 tablet 02/21/19 [Rx] Metoprolol Succinate [Toprol XL 50mg] 50 mg PO DAILY 11/27/19 [History] Past Medical History HEENT History: Reports: Impaired Vision Cardiovascular History: Reports: Hypertension Respiratory History: Reports: Bronchitis, Recurrent Gastrointestinal History: Reports: Colon Polyp, Diverticulosis, GERD Genitourinary History: Reports: UTI, Recurrent 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 Denies: Fever, Night Sweats, Diaphoresis, Weight Loss, Weight Gain HEENT: Reports: Eye Pain (dry left eye). Denies: Headaches, Hearing Changes, Rhinitis, Post Nasal Drip, Sinus Congestion Pulmonary: Denies: Shortness of Breath, Wheezing, Pleuritic Chest Pain, Cough, Sputum Cardiovascular: Reports: Palpitations. Denies: Chest Pain, Dyspnea on Exertion , Orthopnea, PND, Edema, Lightheadedness, Syncope, Claudication, Blood Pressure Problem Gastrointestinal: Reports: Anorexia, Constipation, Diarrhea, Decreased Appetite , Distension, Flatus, Nausea. Denies: Abdominal Pain, Black Stool, Bloody Stool , Difficulty Swallowing, Hematemesis, Hematochezia, Melena, Mucous in Stool, Vomiting Genitourinary: Denies: Dysuria, Frequency, Burning, Pain, Urgency, Incontinence Musculoskeletal: Denies: Joint Pain, Joint Swelling, Muscle Pain, Muscle Stiffness Skin: Denies: Cyanosis, Jaundice, Mottled, Pallor, Diaphoresis Psychiatric: Denies: Confusion, Depression, Mood Lability, Anxiety Neurological: Denies: Dizziness, Headache, Numbness, Paresthesia Exam - Exam Exam: See Below - Vital Signs Vital Signs: Last Vital Signs Temp 98.2 F 11/27/19 14:26 Pulse 113 H 11/27/19 14:29 Resp 16 11/27/19 14:29 BP 140/77 11/27/19 14:29 Pulse Ox 100 11/27/19 14:29 Weight: 70.76 kg - Exam General: Alert, Oriented, Cooperative. No: Mild Distress HEENT: Conjunctiva Clear, EACs Clear, EOMI, Hearing Intact, Nares Patent. No: Mucosa Moist & [place] (Oral mucosa is dry with obvious foldings, no trauma, no saliva is apparent) Neck: Supple, Trachea Midline, +2 Carotid Pulse wo Bruit, Full Range of Motion. No: Lymphadenopathy Lungs: Clear to Auscultation, Normal Respiratory Effort. No: Crackles, Rales, Rhonchi, Rub, Stridor, Wheezing Cardiovascular: Other (Arrhythmic but synchronic with pulse, tachycardic, unable to auscultate murmurs rubs or gallops) GI/Abdominal Exam: Normal Bowel Sounds, Soft, Non-Tender. No: Distended, Guarding, Rigid, Rebound Extremities: Normal Inspection, Non-Tender, No Pedal Edema Peripheral Pulses: 2+: Radial (L), Radial (R), Dorsalis Pedis (L), Dorsalis Pedis (R) Skin: Warm, Dry, Intact Psychiatric: Alert, Normal Affect, Normal Mood - Patient Data Result Diagrams: 11/27/19 15:20 11/27/19 15:20 Sepsis Event Note - Evaluation Sepsis Screening Result: No Definite Risk *Q Meaningful Use (ADM) - VTE *Q VTE Anticoagulation Contraindications: Medical/Procedure Contrai - Problem List (1) Hypercalcemia SNOMED Code(s): 98995001 ICD Code: E83.52 - HYPERCALCEMIA Status: Acute Current Visit: No (2) Volume depletion SNOMED Code(s): 500738912 ICD Code: E86.9 - VOLUME DEPLETION, UNSPECIFIED Status: Acute Current Visit: Yes (3) Atrial fibrillation with RVR SNOMED Code(s): 646171431321538 ICD Code: I48.91 - UNSPECIFIED ATRIAL FIBRILLATION Status: Acute Current Visit: Yes (4) Chronic anticoagulation SNOMED Code(s): 549134555 ICD Code: Z79.01 - FCI (CURRENT) USE OF ANTICOAGULANTS Status: Acute Current Visit: Yes (5) Leukocytosis SNOMED Code(s): 284257466, 358480746 ICD Code: D72.829 - ELEVATED WHITE BLOOD CELL COUNT, UNSPECIFIED Status: Acute Current Visit: Yes (6) Acute kidney injury SNOMED Code(s): 14944322, 22679858 ICD Code: N17.9 - ACUTE KIDNEY FAILURE, UNSPECIFIED Status: Acute Current Visit: Yes (7) Hypoalbuminemia SNOMED Code(s): 387463158 ICD Code: E88.09 - OTH DISORDERS OF PLASMA-PROTEIN METABOLISM, NEC Status: Acute Current Visit: Yes (8) Chronic GERD SNOMED Code(s): 768569476, 493756091 ICD Code: K21.9 - GASTRO-ESOPHAGEAL REFLUX DISEASE WITHOUT ESOPHAGITIS Status: Acute Priority: Low Current Visit: No Onset Date: 02/16/19 (9) Hypertension SNOMED Code(s): 93545337 ICD Code: I10 - ESSENTIAL (PRIMARY) HYPERTENSION Status: Acute Priority: Low Current Visit: No Onset Date: 02/16/19 Qualifiers: Hypertension type: essential hypertension Qualified Code(s): I10 - Essential (primary) hypertension Problem List Initiated/Reviewed/Updated: Yes Assessment/Plan Comment:: Severe hypercalcemia Volume depletion Acute kidney injury Hypoalbuminemia Leukocytosis On calcium and vitamin D supplementation at home Hemoglobin stable for the past year Baseline GFR is normal, likely secondary to volume depletion Possible etiologies Paraneoplastic: Does not meet crab criteria for multiple myeloma and denies history of smoking Primary hyperparathyroidism, likely due to postmenopausal state and asymptomatic Sarcoidosis is also an option with possible adenopathies on CXR No family history of endocrine neoplasms PLAN - Orthostatic vital signs - CT chest - Serum and urine protein electrophoresis - Ionized calcium, PTH, PTH related peptide, vitamin D level, phosphorus - Bone scan - Calcitonin 4 units/kg every 12 hours - NS at 200 mL's per hour, goal urine output between 101 150 mL's per hour - Insert Cooper catheter to quantify urine output - Zoledronate 1 dose - Spot urine calcium, sodium and creatinine - Repeat labs in the morning - Peripheral blood smear to evaluate for plasma cells Atrial fibrillation with RVR Chronic anticoagulation Came in for constipation but was found to have a heart rate between 80 and 160 in the emergency department Has been taking Xarelto Has metoprolol for blood pressure and has not been taking it in the past 5 days Previous echocardiogram with 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 PROPHYLAXIS DVT- Home Xarelto and compression stockings GI- not indicated CODE STATUS: DNR/DNI DISPOSITION: Patient will be admitted to the ICU for diltiazem drip and acute management of severe hypercalcemia as well as etiology work-up. SOCIAL: She lives by herself in [place] in a house, gets help from her children especially her 2 sons Primary care provider is [place] full work Non-smoker nondrinker Never drug user Independent on ADLs and dependent on housekeeping at times. - Mortality Measure Prognosis:: Poor
--- NOTE | 2019-11-27 20:13 | CT ---
CT chest Technique: Multiple axial sections through the chest were obtained. Intravenous contrast was not utilized. Comparison: No prior chest CT is available, prior chest x-ray of 03/28/19 is available. Findings: Visualized upper abdominal structures shows no discrete abnormality. No pericardial thickening is seen. Aorta shows no aneurysm. Mediastinum and hilar region show no adenopathy. No axillary adenopathy is seen. Linear scar believed to be present within the left upper chest. Nodule is noted within the right upper lung measuring approximately 7 mm. Small nodule is noted within the left lung base measuring approximately 4.6 mm. No acute parenchymal change is seen within either side of the chest. Emphysematous changes are present. Bone window settings were reviewed which shows diffuse disc space narrowing, vacuum phenomena and endplate spurring within the spine. No acute osseous finding is appreciated. Impression: 1. Emphysematous change. 2. Dominant nodule within the right upper lung measuring 7 mm. No prior chest CT to determine stability. 2. Nothing acute is appreciated on noncontrast CT study of the chest. Diagnostic code #3 This report was dictated in MDT
[2019-11-27] MEDS: Diltiazem IR 60 MG Tab PO SCH (20:58)
[2019-11-27] MEDS ORDERED: Sodium Chloride 0.9% 1,000 ML ONE (23:11)
[2019-11-27] MEDS: Sodium Chloride 0.9% 1,000 ML IV SCH (23:27)
[2019-11-28] MEDS: Diltiazem IR 60 MG Tab PO SCH ×4 (01:04→20:02)
[2019-11-28] MEDS: Calcitonin (Salmon) 200 Units/ML 2 ML MDV SUBCUT SCH ×2 (05:00→16:32)
--- NOTE | 2019-11-28 06:56 | CR ---
Abdominal series: Supine and upright views the abdomen were obtained as well as frontal view of the chest. Comparison: Prior chest x-ray of 03/28 size 19 and prior abdominal x-ray of 08/23/11. Heart is slightly enlarged. Tortuous thoracic aorta is seen. Scarring is noted within the left lung apex. Lungs show no acute parenchymal change. Left hip prosthesis is noted. Scattered degenerative change is noted within the spine with disc space narrowing and endplate spurring. No free air is seen. Bowel gas pattern appears normal. Impression: 1. Mild cardiomegaly. 2. Other findings as noted above. 3. Nothing acute is seen. Diagnostic code #2 Study was dictated in MDT
[2019-11-28] MEDS ORDERED: Magnesium Sulfate/Water 2 GM in Premix Bag 1 BAG IV ONE (07:26)
[2019-11-28] MEDS ORDERED: Potassium Phosphates 3 mMole/ML 15 ML SDV IV ONE (08:00)
[2019-11-28] MEDS: Potassium Chloride 10 MEQ in Premix Bag 1 BAG IV SCH ×4 (08:20→11:33)
[2019-11-28] MEDS ORDERED: Potassium Phosphates 30 MMOLE in Sodium Chloride 0.9% 500 ML IV ONE (08:30)
[2019-11-28] MEDS: Phosphorus #1 250 MG Tab PO SCH ×2 (09:00→20:02)
[2019-11-28] MEDS: Sodium Chloride 0.9% 1,000 ML IV SCH ×3 (09:00→19:10)
[2019-11-28] MEDS ORDERED: Rivaroxaban 10 MG Tab PO SCH (09:00)
[2019-11-28] MEDS: Potassium Chloride 20 MEQ Tab.ER PO SCH ×2 (10:23→14:05)
--- NOTE | 2019-11-28 11:32 | PCM.PN ---
- General Info Date of Service: 11/28/19 Subjective Update: Feeling OK Slept OK Tolerating diet No BM today - Patient Data Vitals - Most Recent: Last Vital Signs Temp 98.1 F 11/28/19 04:00 Pulse 64 11/28/19 04:00 Resp 16 11/28/19 04:00 BP 115/54 L 11/28/19 04:00 Pulse Ox 97 11/28/19 04:00 Weight - Most Recent: 72.03 kg - Exam General: Alert, Oriented, Cooperative, No Acute Distress HEENT: Pupils Equal, Pupils Reactive, EOMI, Mucous Membr. Moist/[place] Neck: Supple, Trachea Midline, No JVD, No Thyromegaly Lungs: Clear to Auscultation, Normal Respiratory Effort. No: Decreased Breath Sounds, Crackles, Rales, Rhonchi, Rub, Stridor, Wheezing Cardiovascular: Regular Rate, Regular Rhythm, No Murmurs. No: Gallops, Rubs GI/Abdominal Exam: Normal Bowel Sounds, Soft, Non-Tender, Distended. No: Guarding, Rigid, Rebound Back Exam: Normal Inspection Extremities: Normal Inspection, Non-Tender, No Pedal Edema, Normal Capillary Refill Peripheral Pulses: 2+: Radial (L), Radial (R), Dorsalis Pedis (L), Dorsalis Pedis (R) Skin: Warm, Dry Neurological: No New Focal Deficit Psy/Mental Status: Alert, Normal Affect, Normal Mood Sepsis Event Note - Evaluation Sepsis Screening Result: No Definite Risk - Problem List & Annotations (1) Hypercalcemia SNOMED Code(s): 26710520 Code(s): E83.52 - HYPERCALCEMIA Status: Acute Current Visit: No (2) Volume depletion SNOMED Code(s): 373191728 Code(s): E86.9 - VOLUME DEPLETION, UNSPECIFIED Status: Acute Current Visit: Yes (3) Atrial fibrillation with RVR SNOMED Code(s): 879340729813622 Code(s): I48.91 - UNSPECIFIED ATRIAL FIBRILLATION Status: Acute Current Visit: Yes (4) Chronic anticoagulation SNOMED Code(s): 764968844 Code(s): Z79.01 - SCRUB NURSE (CURRENT) USE OF ANTICOAGULANTS Status: Acute Current Visit: Yes (5) Leukocytosis SNOMED Code(s): 529429981, 131173386 Code(s): D72.829 - ELEVATED WHITE BLOOD CELL COUNT, UNSPECIFIED Status: Acute Current Visit: Yes (6) Acute kidney injury SNOMED Code(s): 65861006, 03880126 Code(s): N17.9 - ACUTE KIDNEY FAILURE, UNSPECIFIED Status: Acute Current Visit: Yes (7) Hypoalbuminemia SNOMED Code(s): 258648172 Code(s): E88.09 - OTH DISORDERS OF PLASMA-PROTEIN METABOLISM, NEC Status: Acute Current Visit: Yes (8) Chronic GERD SNOMED Code(s): 794358402, 733730284 Code(s): K21.9 - GASTRO-ESOPHAGEAL REFLUX DISEASE WITHOUT ESOPHAGITIS Status: Acute Priority: Low Current Visit: No Onset Date: 02/16/19 (9) Hypertension SNOMED Code(s): 20628413 Code(s): I10 - ESSENTIAL (PRIMARY) HYPERTENSION Status: Acute Priority: Low Current Visit: No Onset Date: 02/16/19 Qualifiers: Hypertension type: essential hypertension Qualified Code(s): I10 - Essential (primary) hypertension (10) Rate controlled atrial fibrillation SNOMED Code(s): 37614479 Code(s): I48.91 - UNSPECIFIED ATRIAL FIBRILLATION Status: Acute Current Visit: Yes (11) Hypokalemia SNOMED Code(s): 55139983 Code(s): E87.6 - HYPOKALEMIA Status: Acute Current Visit: Yes (12) Hypophosphatemia SNOMED Code(s): 3046260 Code(s): E83.39 - OTHER DISORDERS OF PHOSPHORUS METABOLISM Status: Acute Current Visit: Yes (13) Vitamin D toxicity SNOMED Code(s): 93373712 Code(s): T45.2X1A - POISONING BY VITAMINS, ACCIDENTAL (UNINTENTIONAL), INIT Status: Acute Current Visit: Yes (14) Lung nodule < 6cm on CT SNOMED Code(s): 032465719, 214334966 Code(s): R91.1 - SOLITARY PULMONARY NODULE Status: Acute Current Visit: Yes - Problem List Review Problem List Initiated/Reviewed/Updated: Yes - Assessment Assessment:: ASSESSMENT 11/27/2019 - On calcium and vitamin D supplementation at home - Hemoglobin stable for the past year - Baseline GFR is normal, likely secondary to volume depletion - Possible etiologies - Paraneoplastic: Does not meet crab criteria for multiple myeloma and denies history of smoking - Primary hyperparathyroidism, likely due to postmenopausal state and asymptomatic - Sarcoidosis is also an option with possible adenopathies on CXR - No family history of endocrine neoplasm - Came in for constipation but was found to have a heart rate between 80 and 160 in the emergency department - Has been taking Xarelto - Has metoprolol for blood pressure and has not been taking it in the past 5 days - 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 - CT chest with new BLAIRE 7mm nodule - RVR resolved later on and she was started on PO Diltiazem 11/28/2019 - New Labs - Calcium fown to 12.2 - K down from 3.5 to 3 - Gap closed - PO4 4.3 to 2.8 - Vitamin D 117 - EKG changes form admission except for RBBB resolved - Plan Plan:: Severe hypercalcemia, improving Volume depletion, improving Acute kidney injury, improving Hypoalbuminemia Multiple electrolyte abnormalities PLAN - Continue NS - Continue Cooper catheter - Follow up on work up labs - Bone scan today - Continue calcitonin - CXR today to see if nodule is visible to determine chronicity - IV KCL 40mEq + PO 40mEq PO x2 doses - PO4 oral repletion Atrial fibrillation, rate controlled on Xarelto PLAN - Diltiazem PO - Decrease Xarelto dose due to age - F/U echocardiogram result Hypertension PLAN - Continue to hold Leukocytosis, resolved RVR, resolved PROPHYLAXIS DVT- Home Xarelto and compression stockings GI- not indicated CODE STATUS: DNR/DNI DISPOSITION: Patient will remain in ICU pending calcium normalization. Will await results of studies, once stable she does not need to stay admitted pending results, these can be obtained upon discharge by PCP.
--- NOTE | 2019-11-28 11:50 | CR ---
Chest: PA and lateral views of the chest were obtained. Comparison: Prior chest CT study performed on 11/27/19. Chest x-ray from 03/28/19 is also available. Stable linear scar within the left lung apex. Lungs otherwise are clear no acute parenchymal change. Heart size appears slightly enlarged. Tortuous thoracic aorta is noted. Scattered disc space narrowing is noted within the spine with scoliosis. Impression: 1. Stable findings. Nothing acute is seen. Note: Nodules that were noted on recent chest CT are too small to visualize on chest x-ray. Diagnostic code #2 This report was dictated in MDT
--- NOTE | 2019-11-28 11:54 | NM ---
Bone scan Technique: 23.8 mCi of technetium 99 M MDP was given intravenously. Delayed whole body scintigraphic images were obtained. Findings: Increased activity within both knees compatible with degenerative change. Activity is noted within both wrists as well as several fingers compatible with degenerative change. Mild areas of increased activity within the cervical, thoracic and lumbar spine have a pattern typical of degenerative change. Photopenic area within the left hip is compatible with prosthesis. Mild activity within both ankles which has a pattern typical of degenerative change. No other scintigraphic abnormalities are seen. Impression: 1. Scattered areas of increased activity as noted above having the appearance of degenerative change. 2. Photopenic area from left hip prosthesis also noted. Diagnostic code #2 This report was dictated in MDT
[2019-11-29] MEDS: Sodium Chloride 0.9% 1,000 ML IV SCH ×2 (00:24→05:17)
[2019-11-29] MEDS: Diltiazem IR 60 MG Tab PO SCH ×2 (01:57→13:23)
[2019-11-29] MEDS: Calcitonin (Salmon) 200 Units/ML 2 ML MDV SUBCUT SCH (04:23)
--- NOTE | 2019-11-29 08:49 | PCM.PN ---
- General Info Date of Service: 11/29/19 Admission Dx/Problem (Free Text): Admission Diagnosis/Problem Admission Diagnosis/Problem Hypercalcemia Subjective Update: Patient states that she feels weak and has not been out of bed since yesterday. She has poor oral intake and has not had a bowel movement since admission. She states she feels nauseated when she ate yesterday. - Review of Systems General: Reports: Weakness, Fatigue HEENT: Reports: No Symptoms Pulmonary: Reports: No Symptoms Cardiovascular: Reports: No Symptoms Gastrointestinal: Reports: No Symptoms Genitourinary: Reports: No Symptoms Musculoskeletal: Reports: No Symptoms Skin: Reports: No Symptoms Neurological: Reports: No Symptoms Psychiatric: Reports: No Symptoms - Patient Data Vitals - Most Recent: Last Vital Signs Temp 97.4 F 11/29/19 04:00 Pulse 68 11/28/19 18:00 Resp 19 11/29/19 04:00 BP 130/66 11/29/19 04:00 Pulse Ox 94 L 11/29/19 04:00 Orthostatic Blood Pressure [ 135/75 Standing] Orthostatic Blood Pressure [ 129/109 Sitting] Orthostatic Blood Pressure [ 125/67 Supine] Weight - Most Recent: 158 lb 8.198 oz I&O - Last 24 Hours: Intake & Output 11/28/19 11/29/19 11/29/19 22:59 06:59 14:59 Intake Total 4550 2211 Output Total 1150 1200 Balance 3400 1011 Lab Results Last 24 Hours: Laboratory Results - last 24 hr 11/29/19 11/29/19 Range/Units 07:12 07:12 WBC 8.93 (3.98-10.04) K/mm3 RBC 3.65 L (3.98-5.22) M/mm3 Hgb 10.3 L (11.2-15.7) gm/dl Hct 32.3 L (34.1-44.9) % MCV 88.5 (79.4-94.8) fl MCH 28.2 (25.6-32.2) pg MCHC 31.9 L (32.2-35.5) g/dl RDW Std Deviation 41.0 (36.4-46.3) fL Plt Count 193 (182-369) K/mm3 MPV 11.1 (9.4-12.3) fl Neut % (Auto) 76.2 H (34.0-71.1) % Lymph % (Auto) 13.3 L (19.3-51.7) % [place] % (Auto) 9.9 (4.7-12.5) % Eos % (Auto) 0.2 L (0.7-5.8) Baso % (Auto) 0.1 (0.1-1.2) % Neut # (Auto) 6.80 H (1.56-6.13) K/mm3 Lymph # (Auto) 1.19 (1.18-3.74) K/mm3 [place] # (Auto) 0.88 H (0.24-0.36) K/mm3 Eos # (Auto) 0.02 L (0.04-0.36) K/mm3 Baso # (Auto) 0.01 (0.01-0.08) K/mm3 Sodium 142 (136-145) mEq/L Potassium 3.2 L (3.5-5.1) mEq/L Chloride 108 H (98-107) mEq/L Carbon Dioxide 21 (21-32) mEq/L Anion Gap 16.2 H (5-15) BUN 8 (7-18) mg/dL Creatinine 0.8 (0.55-1.02) mg/dL Est Cr Clr Drug Dosing 45.42 mL/min Estimated GFR (MDRD) > 60 (>60) mL/min BUN/Creatinine Ratio 10.0 L (14-18) Glucose 91 (83-115) mg/dL Calcium 8.5 D (8.5-10.1) mg/dL Phosphorus 1.6 L (2.6-4.7) mg/dL Magnesium 1.2 L (1.8-2.4) mg/dl Med Orders - Current: Current Medications Acetaminophen (Tylenol) 325 mg PO Q4H PRN PRN Reason: Pain (Mild 1-3)/fever Calcitonin [place] (Miacalcin) 280 units SUBCUT Q12H [facility] Last Admin: 11/29/19 04:23 Dose: 280 units Documented by: Diltiazem HCl (Cardizem) 60 mg PO Q6H PATRICIA Last Admin: 11/29/19 01:57 Dose: 60 mg Documented by: Diltiazem HCl 100 mg/ Sodium (Chloride) 100 mls @ 10 mls/hr IV TITRATE PATRICIA; Protocol Last Titration: 11/27/19 21:10 Dose: 0 mg/hr, 0 mls/hr Documented by: Sodium Chloride (Normal Saline) 1,000 mls @ 200 mls/hr IV ASDIRECTED PATRICIA Last Admin: 11/29/19 05:17 Dose: 200 mls/hr Documented by: Magnesium Sulfate 4 gm/ Premix 50 mls @ 12.5 mls/hr IV ONETIME ONE Stop: 11/29/19 12:37 Potassium Phosphate 15 mmole/ (Sodium Chloride) 255 mls @ 85 mls/hr IV ASDIRECTED PATRICIA Stop: 11/29/19 11:44 Magnesium Oxide (Magnesium Oxide) 400 mg PO BID [facility] Ondansetron HCl (Zofran Odt) 4 mg PO Q6H PRN PRN Reason: nausea, able to take PO Ondansetron HCl (Zofran) 4 mg IV Q6H PRN PRN Reason: Nausea/Vomiting Potassium Chloride (Klor-Con M20) 40 meq PO ONETIME ONE Stop: 11/29/19 08:39 Rivaroxaban (Xarelto) 15 mg PO DAILY [facility] Sodium Chloride (Saline Flush) 10 ml FLUSH ASDIRECTED PRN PRN Reason: Keep Vein Open Last Admin: 11/27/19 14:45 Dose: 10 ml Documented by: Sodium Phosphate (Neutra-Phos) 250 mg PO BID PATRICIA Last Admin: 11/28/19 20:02 Dose: 250 mg Documented by: Discontinued Medications Diltiazem HCl (Cardizem) 10 mg IVPUSH ONETIME ONE Stop: 11/27/19 14:53 Last Admin: 11/27/19 15:34 Dose: 10 mg Documented by: Sodium Chloride (Normal Saline) 1,000 mls @ 999 mls/hr IV ONETIME ONE Stop: 11/27/19 15:36 Last Admin: 11/27/19 14:45 Dose: 999 mls/hr Documented by: Sodium Chloride (Normal Saline) 1,000 mls @ 200 mls/hr IV ONETIME ONE Stop: 11/27/19 21:29 Last Admin: 11/27/19 17:53 Dose: 200 mls/hr Documented by: Pamidronate Disodium 90 mg/ (Sodium Chloride) 1,000 mls @ 166.667 mls/hr IV ONETIME ONE Stop: 11/27/19 16:45 Last Admin: 11/27/19 17:48 Dose: 166.667 mls/hr Documented by: Sodium Chloride (Normal Saline) Confirm Administered Dose 1,000 mls @ as directed .ROUTE .STK-MED ONE Stop: 11/27/19 23:12 Last Admin: 11/27/19 23:27 Dose: Not Given Documented by: Magnesium Sulfate 2 gm/ Premix 50 mls @ 25 mls/hr IV ONETIME ONE Stop: 11/28/19 09:25 Last Admin: 11/28/19 08:20 Dose: 25 mls/hr Documented by: Potassium Chloride 10 meq/ (Premix) 100 mls @ 100 mls/hr IV Q1H [facility] Stop: 11/28/19 11:29 Last Admin: 11/28/19 11:33 Dose: 100 mls/hr Documented by: Ondansetron HCl (Zofran) 4 mg IVPUSH ONETIME ONE Stop: 11/27/19 14:37 Last Admin: 11/27/19 14:45 Dose: 4 mg Documented by: Potassium Chloride (Klor-Con M20) 40 meq PO Q4H PATRICIA Stop: 11/28/19 15:01 Last Admin: 11/28/19 14:05 Dose: 40 meq Documented by: Potassium Phosphate (Potassium Phosphates) 30 mmole IV ONETIME ONE Stop: 11/28/19 08:01 Rivaroxaban (Xarelto) 20 mg PO DAILY [facility] Last Admin: 11/28/19 08:25 Dose: 20 mg Documented by: - Exam Quality Assessment: No: Supplemental Oxygen General: Alert, Oriented HEENT: Pupils Equal, Mucous Membr. Moist/[employer] Neck: Supple Lungs: Clear to Auscultation, Normal Respiratory Effort Cardiovascular: Regular Rate, Regular Rhythm GI/Abdominal Exam: Normal Bowel Sounds, Soft, Non-Tender, No Organomegaly, No Distention, No Abnormal Bruit Back Exam: Normal Inspection Extremities: Normal Inspection, Normal Range of Motion, Non-Tender, No Pedal Edema, Normal Capillary Refill Skin: Warm, Dry, Intact Psy/Mental Status: Alert, Normal Affect, Normal Mood Sepsis Event Note - Evaluation Sepsis Screening Result: No Definite Risk - Focused Exam Vital Signs: Vital Signs Temp Resp BP Pulse Ox 11/29/19 04:00 97.4 F 19 130/66 94 L 11/29/19 00:00 97.2 F 19 134/59 L 93 L Date Exam was Performed: 11/29/19 Time Exam was Performed: 12:09 - Problem List & Annotations (1) Acute kidney injury SNOMED Code(s): 31549111, 42601994 Code(s): N17.9 - ACUTE KIDNEY FAILURE, UNSPECIFIED Status: Acute Current Visit: Yes (2) Atrial fibrillation with RVR SNOMED Code(s): 369562632972838 Code(s): I48.91 - UNSPECIFIED ATRIAL FIBRILLATION Status: Acute Current Visit: Yes (3) Chronic anticoagulation SNOMED Code(s): 734187878 Code(s): Z79.01 - 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 (CURRENT) USE OF ANTICOAGULANTS Status: Acute Current Visit: Yes (4) Hypoalbuminemia SNOMED Code(s): 900655133 Code(s): E88.09 - OTH DISORDERS OF PLASMA-PROTEIN METABOLISM, NEC Status: Acute Current Visit: Yes (5) Hypokalemia SNOMED Code(s): 49830133 Code(s): E87.6 - HYPOKALEMIA Status: Acute Current Visit: Yes (6) Hypophosphatemia SNOMED Code(s): 8086098 Code(s): E83.39 - OTHER DISORDERS OF PHOSPHORUS METABOLISM Status: Acute Current Visit: Yes (7) Lung nodule < 6cm on CT SNOMED Code(s): 862248321, 923569126 Code(s): R91.1 - SOLITARY PULMONARY NODULE Status: Acute Current Visit: Yes - Problem List Review Problem List Initiated/Reviewed/Updated: Yes - My Orders Last 24 Hours: My Active Orders 11/29/19 08:38 Magnesium Sulfate/Water [Magnesium Sulfate in Water Premix] 4 gm Premix Bag 1 bag IV ONETIME Potassium Chloride [Klor-Con M20] 40 meq PO ONETIME ONE 11/29/19 08:39 Patient Status [ADT] Routine 11/29/19 08:45 Potassium Phosp 15 MMOLE in Sodium Chloride 0.9% @ 85 MLS/HR(250ml) Potassium Phosphates 15 mmole Sodium Chloride 0.9% [Normal Saline] 250 ml IV ASDIRECTED 11/29/19 09:00 Magnesium Oxide 400 mg PO BID - Assessment Assessment:: ASSESSMENT 11/27/2019 - On calcium and vitamin D supplementation at home - Hemoglobin stable for the past year - Baseline GFR is normal, likely secondary to volume depletion - Possible etiologies - Paraneoplastic: Does not meet crab criteria for multiple myeloma and denies history of smoking - Primary hyperparathyroidism, likely due to postmenopausal state and asymptomatic - Sarcoidosis is also an option with possible adenopathies on CXR - No family history of endocrine neoplasm - Came in for constipation but was found to have a heart rate between 80 and 160 in the emergency department - Has been taking Xarelto - Has metoprolol for blood pressure and has not been taking it in the past 5 days - 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 - CT chest with new BLAIRE 7mm nodule - RVR resolved later on and she was started on PO Diltiazem 11/28/2019 - New Labs - Calcium down to 12.2 - K down from 3.5 to 3 - Gap closed - PO4 4.3 to 2.8 - Vitamin D 117 - EKG changes form admission except for RBBB resolved 11/29/2019 - Corrected Calcium decreased to 9.8 - Poor oral intake - HR well controlled in the 60 - 70s Echocardiogram 11/28/2019 Summary: 1. Left ventricular ejection fraction, by visual estimation, is 60 to 65%. 2. Normal left ventricular systolic function. 3. Impaired relaxation (grade 1) pattern of LV diastolic filling. 4. Left ventricular internal cavity size is normal. 5. The right ventricular systolic pressure is moderately elevated at 43.4 mmHg. 6. No regional wall motion abnormalities. - Plan Plan:: Severe hypercalcemia, improving Volume depletion, improving Acute kidney injury, improving Hypoalbuminemia Multiple electrolyte abnormalities Poor oral intake PLAN - D/C NS - D/C Cooper catheter - Follow up on work up labs - Bone scan done - degenerative changes - D/C calcitonin - CXR today to see if nodule is visible to determine chronicity - IV KCL 40mEq + PO 40mEq PO x2 doses - PO4 oral/IV repletion -Dietary consult and encourage increased p.o. intake Atrial fibrillation, rate controlled on Xarelto PLAN - Diltiazem PO -switch to long-acting, diltiazem XR 240 mg in the morning - Decrease Xarelto dose due to age Hypertension PLAN -Diltiazem XR 240 mg in the morning Leukocytosis, resolved RVR, resolved PROPHYLAXIS DVT- Home Xarelto and compression stockings GI- not indicated CODE STATUS: DNR/DNI DISPOSITION: Patient will transferred to [facility]. Will await results of studies, once stable she does not need to stay admitted pending results, these can be obtained upon discharge by PCP. She needs to improved strength and ambulation prior to D/C.
[2019-11-29] MEDS ORDERED: Magnesium Sulfate/Water 4 GM in Premix Bag 1 BAG IV ONE (09:30)
[2019-11-29] MEDS ORDERED: Potassium Phosphates 15 MMOLE in Sodium Chloride 0.9% 250 ML IV ONE (09:30)
[2019-11-29] MEDS ORDERED: Phosphorus #1 250 MG Tab PO SCH (10:15)
[2019-11-29] MEDS: Magnesium Oxide 400 MG Tab PO SCH ×2 (10:17→20:33)
[2019-11-29] MEDS: Potassium Chloride 20 MEQ Tab.ER PO ONE ×2 (10:17→13:24)
[2019-11-29] MEDS: Rivaroxaban 15 MG Tab PO SCH (10:18)
[2019-11-29] MEDS: Diltiazem 240 MG Cap.ER PO SCH (10:18)
[2019-11-29] MEDS: Phosphorus #1 250 MG Tab PO SCH ×5 (10:18→20:34)
[2019-11-29] MEDS ORDERED: Potassium Chloride 10% 20 MEQ/15 ML Soln 15 ML UD Cup PO ONE (11:03)
[2019-11-30] MEDS: Diltiazem 240 MG Cap.ER PO SCH (08:34)
[2019-11-30] MEDS: Rivaroxaban 15 MG Tab PO SCH (08:35)
[2019-11-30] MEDS: Magnesium Oxide 400 MG Tab PO SCH ×2 (08:35→21:22)
[2019-11-30] MEDS: Phosphorus #1 250 MG Tab PO SCH ×3 (08:35→21:23)
[2019-11-30] MEDS ORDERED: Metoprolol Tartrate 5 MG/5 ML SDV IVPUSH STA (09:00)
[2019-11-30] MEDS ORDERED: Magnesium Sulfate/Water 4 GM in Premix Bag 1 BAG IV ONE (09:00)
--- NOTE | 2019-11-30 09:35 | PCM.PN ---
- General Info Date of Service: 11/30/19 Admission Dx/Problem (Free Text): Admission Diagnosis/Problem Admission Diagnosis/Problem Hypercalcemia Subjective Update: Gill continues to have poor appetite. This morning her heart rate was in the 140s to 150s. 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 Patient required 5 mg IV Lopressor to bring her heart rate back down to the low 100s and below. Patient did have shortness of breath associated with the increased heart rate but denied chest pain. - Review of Systems General: Reports: Fatigue HEENT: Reports: No Symptoms Pulmonary: Reports: Shortness of Breath Cardiovascular: Reports: Palpitations Gastrointestinal: Reports: Decreased Appetite Genitourinary: Reports: No Symptoms. Denies: Dysuria Musculoskeletal: Reports: No Symptoms Neurological: Reports: No Symptoms Psychiatric: Reports: No Symptoms - Patient Data Vitals - Most Recent: Last Vital Signs Temp 97.9 F 11/30/19 07:54 Pulse 76 11/30/19 09:05 Resp 20 11/30/19 07:54 BP 115/64 11/30/19 09:05 Pulse Ox 96 11/30/19 07:54 Orthostatic Blood Pressure [ 135/75 Standing] Orthostatic Blood Pressure [ 129/109 Sitting] Orthostatic Blood Pressure [ 125/67 Supine] Weight - Most Recent: 74.48 kg I&O - Last 24 Hours: Intake & Output 11/29/19 11/30/19 11/30/19 22:59 06:59 14:59 Intake Total 2120 700 Output Total 900 Balance 1220 700 Lab Results Last 24 Hours: Laboratory Results - last 24 hr 11/27/19 11/30/19 11/30/19 Range/Units 17:12 05:20 05:20 WBC 12.10 H (3.98-10.04) K/mm3 RBC 3.92 L (3.98-5.22) M/mm3 Hgb 11.1 L (11.2-15.7) gm/dl Hct 33.9 L (34.1-44.9) % MCV 86.5 (79.4-94.8) fl MCH 28.3 (25.6-32.2) pg MCHC 32.7 (32.2-35.5) g/dl RDW Std Deviation 40.2 (36.4-46.3) fL Plt Count 203 (182-369) K/mm3 MPV 10.8 (9.4-12.3) fl Neut % (Auto) 70.1 (34.0-71.1) % Lymph % (Auto) 18.7 L (19.3-51.7) % Braxton % (Auto) 10.0 (4.7-12.5) % Eos % (Auto) 0.9 (0.7-5.8) Baso % (Auto) 0.1 (0.1-1.2) % Neut # (Auto) 8.48 H (1.56-6.13) K/mm3 Lymph # (Auto) 2.26 (1.18-3.74) K/mm3 Braxton # (Auto) 1.21 H (0.24-0.36) K/mm3 Eos # (Auto) 0.11 (0.04-0.36) K/mm3 Baso # (Auto) 0.01 (0.01-0.08) K/mm3 Sodium 139 (136-145) mEq/L Potassium 3.4 L (3.5-5.1) mEq/L Chloride 104 (98-107) mEq/L Carbon Dioxide 21 (21-32) mEq/L Anion Gap 17.4 H (5-15) BUN 8 (7-18) mg/dL Creatinine 0.8 (0.55-1.02) mg/dL Est Cr Clr Drug Dosing 45.42 mL/min Estimated GFR (MDRD) > 60 (>60) mL/min BUN/Creatinine Ratio 10.0 L (14-18) Glucose 93 (83-115) mg/dL Calcium 8.6 (8.5-10.1) mg/dL Phosphorus (2.6-4.7) mg/dL Magnesium 1.5 L (1.8-2.4) mg/dl PTH Intact 7 L (15-65) pg/mL 11/30/19 Range/Units 05:20 WBC (3.98-10.04) K/mm3 RBC (3.98-5.22) M/mm3 Hgb (11.2-15.7) gm/dl Hct (34.1-44.9) % MCV (79.4-94.8) fl MCH (25.6-32.2) pg MCHC (32.2-35.5) g/dl RDW Std Deviation (36.4-46.3) fL Plt Count (182-369) K/mm3 MPV (9.4-12.3) fl Neut % (Auto) (34.0-71.1) % Lymph % (Auto) (19.3-51.7) % Braxton % (Auto) (4.7-12.5) % Eos % (Auto) (0.7-5.8) Baso % (Auto) (0.1-1.2) % Neut # (Auto) (1.56-6.13) K/mm3 Lymph # (Auto) (1.18-3.74) K/mm3 Braxton # (Auto) (0.24-0.36) K/mm3 Eos # (Auto) (0.04-0.36) K/mm3 Baso # (Auto) (0.01-0.08) K/mm3 Sodium (136-145) mEq/L Potassium (3.5-5.1) mEq/L Chloride (98-107) mEq/L Carbon Dioxide (21-32) mEq/L Anion Gap (5-15) BUN (7-18) mg/dL Creatinine (0.55-1.02) mg/dL Est Cr Clr Drug Dosing mL/min Estimated GFR (MDRD) (>60) mL/min BUN/Creatinine Ratio (14-18) Glucose (83-115) mg/dL Calcium (8.5-10.1) mg/dL Phosphorus 2.0 L (2.6-4.7) mg/dL Magnesium (1.8-2.4) mg/dl PTH Intact (15-65) pg/mL Med Orders - Current: Current Medications Acetaminophen (Tylenol) 325 mg PO Q4H PRN PRN Reason: Pain (Mild 1-3)/fever Diltiazem HCl (Dilacor Xr) 240 mg PO DAILY [facility] Last Admin: 11/30/19 08:34 Dose: 240 mg Documented by: Magnesium Sulfate 4 gm/ Premix 50 mls @ 12.5 mls/hr IV ONETIME ONE Stop: 11/30/19 12:59 Last Admin: 11/30/19 09:06 Dose: 12.5 mls/hr Documented by: Potassium Phosphate 15 mmole/ (Sodium Chloride) 255 mls @ 85 mls/hr IV ASDIRECTED ONE Stop: 11/30/19 15:59 Magnesium Oxide (Magnesium Oxide) 400 mg PO BID [facility] Last Admin: 11/30/19 08:35 Dose: 400 mg Documented by: Ondansetron HCl (Zofran Odt) 4 mg PO Q6H PRN PRN Reason: nausea, able to take PO Ondansetron HCl (Zofran) 4 mg IV Q6H PRN PRN Reason: Nausea/Vomiting Rivaroxaban (Xarelto) 15 mg PO DAILY [facility] Last Admin: 11/30/19 08:35 Dose: 15 mg Documented by: Sodium Chloride (Saline Flush) 10 ml FLUSH ASDIRECTED PRN PRN Reason: Keep Vein Open Last Admin: 11/27/19 14:45 Dose: 10 ml Documented by: Sodium Phosphate (Neutra-Phos) 500 mg PO TID [facility] Last Admin: 11/30/19 08:35 Dose: 500 mg Documented by: Discontinued Medications Calcitonin [place] (Miacalcin) 280 units SUBCUT Q12H [facility] Last Admin: 11/29/19 04:23 Dose: 280 units Documented by: Diltiazem HCl (Cardizem) 10 mg IVPUSH ONETIME ONE Stop: 11/27/19 14:53 Last Admin: 11/27/19 15:34 Dose: 10 mg Documented by: Diltiazem HCl (Cardizem) 60 mg PO Q6H [facility] Last Admin: 11/29/19 13:23 Dose: Not Given Documented by: Sodium Chloride (Normal Saline) 1,000 mls @ 999 mls/hr IV ONETIME ONE Stop: 11/27/19 15:36 Last Admin: 11/27/19 14:45 Dose: 999 mls/hr Documented by: Diltiazem HCl 100 mg/ Sodium (Chloride) 100 mls @ 10 mls/hr IV TITRATE [facility]; Protocol Last Titration: 11/27/19 21:10 Dose: 0 mg/hr, 0 mls/hr Documented by: Sodium Chloride (Normal Saline) 1,000 mls @ 200 mls/hr IV ONETIME ONE Stop: 11/27/19 21:29 Last Admin: 11/27/19 17:53 Dose: 200 mls/hr Documented by: Pamidronate Disodium 90 mg/ (Sodium Chloride) 1,000 mls @ 166.667 mls/hr IV ONETIME ONE Stop: 11/27/19 16:45 Last Admin: 11/27/19 17:48 Dose: 166.667 mls/hr Documented by: Sodium Chloride (Normal Saline) 1,000 mls @ 200 mls/hr IV ASDIRECTED [facility] Last Admin: 11/29/19 05:17 Dose: 200 mls/hr Documented by: Sodium Chloride (Normal Saline) Confirm Administered Dose 1,000 mls @ as directed .ROUTE .STK-MED ONE Stop: 11/27/19 23:12 Last Admin: 11/27/19 23:27 Dose: Not Given Documented by: Magnesium Sulfate 2 gm/ Premix 50 mls @ 25 mls/hr IV ONETIME ONE Stop: 11/28/19 09:25 Last Admin: 11/28/19 08:20 Dose: 25 mls/hr Documented by: Potassium Chloride 10 meq/ (Premix) 100 mls @ 100 mls/hr IV Q1H PATRICIA Stop: 11/28/19 11:29 Last Admin: 11/28/19 11:33 Dose: 100 mls/hr Documented by: Magnesium Sulfate 4 gm/ Premix 50 mls @ 12.5 mls/hr IV ONETIME ONE Stop: 11/29/19 13:29 Last Admin: 11/29/19 10:19 Dose: 12.5 mls/hr Documented by: Potassium Phosphate 15 mmole/ (Sodium Chloride) 255 mls @ 85 mls/hr IV ONETIME ONE Stop: 11/29/19 12:29 Last Admin: 11/29/19 10:33 Dose: 85 mls/hr Documented by: Metoprolol Tartrate (Lopressor) 5 mg IVPUSH ONETIME STA Stop: 11/30/19 09:01 Last Admin: 11/30/19 09:05 Dose: 5 mg Documented by: Ondansetron HCl (Zofran) 4 mg IVPUSH ONETIME ONE Stop: 11/27/19 14:37 Last Admin: 11/27/19 14:45 Dose: 4 mg Documented by: Potassium Chloride (Klor-Con M20) 40 meq PO Q4H PATRICIA Stop: 06/17/20 15:01 Last Admin: 11/28/19 14:05 Dose: 40 meq Documented by: Potassium Chloride (Klor-Con M20) 40 meq PO ONETIME ONE Stop: 11/29/19 09:01 Last Admin: 11/29/19 13:24 Dose: Not Given Documented by: Potassium Chloride (Potassium Chloride Solution) 40 meq PO ONETIME ONE Stop: 11/29/19 11:04 Last Admin: 11/29/19 12:12 Dose: 40 meq Documented by: Potassium Phosphate (Potassium Phosphates) 30 mmole IV ONETIME ONE Stop: 11/28/19 08:01 Rivaroxaban (Xarelto) 20 mg PO DAILY [facility] Last Admin: 11/28/19 08:25 Dose: 20 mg Documented by: Sodium Phosphate (Neutra-Phos) 250 mg PO BID [facility] Last Admin: 11/29/19 13:23 Dose: Not Given Documented by: Sodium Phosphate (Neutra-Phos) 500 mg PO QID [facility] - Exam Quality Assessment: No: Supplemental Oxygen General: Alert, Oriented HEENT: Pupils Equal, Mucous Membr. Moist/[place] Neck: Supple Lungs: Clear to Auscultation, Normal Respiratory Effort Cardiovascular: Irregular Rhythm, Tachycardia GI/Abdominal Exam: Normal Bowel Sounds, Soft, Non-Tender, No Organomegaly, No Distention, No Abnormal Bruit Extremities: Normal Inspection, Normal Range of Motion, Non-Tender, No Pedal Edema, Normal Capillary Refill Skin: Warm, Dry, Intact Wound/Incisions: Healing Well Psy/Mental Status: Alert, Normal Affect, Normal Mood Sepsis Event Note - Evaluation Sepsis Screening Result: No Definite Risk - Focused Exam Vital Signs: Vital Signs Temp Pulse Pulse Resp BP Pulse Ox 11/30/19 09:05 76 115/64 11/30/19 07:54 97.9 F 89 20 108/51 L 96 11/30/19 04:57 37 L 18 112/63 96 11/30/19 03:00 88 Date Exam was Performed: 11/30/19 Time Exam was Performed: 10:30 - Problem List & Annotations (1) Acute kidney injury SNOMED Code(s): 37346107, 55306443 Code(s): N17.9 - ACUTE KIDNEY FAILURE, UNSPECIFIED Status: Acute Current Visit: Yes (2) Atrial fibrillation with RVR SNOMED Code(s): 077390006223963 Code(s): I48.91 - UNSPECIFIED ATRIAL FIBRILLATION Status: Acute Current Visit: Yes (3) Chronic anticoagulation SNOMED Code(s): 721348656 Code(s): Z79.01 - [facility] (CURRENT) USE OF ANTICOAGULANTS Status: Acute Current Visit: Yes (4) Hypoalbuminemia SNOMED Code(s): 929321649 Code(s): E88.09 - OTH DISORDERS OF PLASMA-PROTEIN METABOLISM, NEC Status: Acute Current Visit: Yes (5) Hypokalemia SNOMED Code(s): 85818612 Code(s): E87.6 - HYPOKALEMIA Status: Acute Current Visit: Yes (6) Hypophosphatemia SNOMED Code(s): 7876548 Code(s): E83.39 - OTHER DISORDERS OF PHOSPHORUS METABOLISM Status: Acute Current Visit: Yes (7) Lung nodule < 6cm on CT SNOMED Code(s): 014834290, 617774757 Code(s): R91.1 - SOLITARY PULMONARY NODULE Status: Acute Current Visit: Yes - Problem List Review Problem List Initiated/Reviewed/Updated: Yes - My Orders Last 24 Hours: My Active Orders 11/29/19 09:00 Magnesium Oxide 400 mg PO BID 11/29/19 09:20 Patient Status [ADT] Routine 11/29/19 09:45 Diltiazem [Dilacor XR] 240 mg PO DAILY 11/30/19 09:00 Magnesium Sulfate/Water [Magnesium Sulfate in Water Premix] 4 gm Premix Bag 1 bag IV ONETIME 11/30/19 09:15 TROPONIN I [CHEM] Stat 11/30/19 13:00 Potassium Phosp 15 MMOLE in Sodium Chloride 0.9% @ 85 MLS/HR(250ml) Potassium Phosphates 15 mmole Sodium Chloride 0.9% [Normal Saline] 250 ml IV ASDIRECTED 12/01/19 05:11 CBC WITH AUTO DIFF [HEME] AM CMP [COMPREHENSIVE METABOLIC PN,CMP] [CHEM] AM MAGNESIUM [CHEM] AM PHOSPHORUS [CHEM] AM - Assessment Assessment:: ASSESSMENT 11/27/2019 - On calcium and vitamin D supplementation at home - Hemoglobin stable for the past year - Baseline GFR is normal, likely secondary to volume depletion - Possible etiologies - Paraneoplastic: Does not meet crab criteria for multiple myeloma and denies history of smoking - Primary hyperparathyroidism, likely due to postmenopausal state and asymptomatic - Sarcoidosis is also an option with possible adenopathies on CXR - No family history of endocrine neoplasm - Came in for constipation but was found to have a heart rate between 80 and 160 in the emergency department - Has been taking Xarelto - Has metoprolol for blood pressure and has not been taking it in the past 5 days - 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 - CT chest with new BLAIRE 7mm nodule - RVR resolved later on and she was started on PO Diltiazem 11/28/2019 - New Labs - Calcium down to 12.2 - K down from 3.5 to 3 - Gap closed - PO4 4.3 to 2.8 - Vitamin D 117 - EKG changes form admission except for RBBB resolved 11/29/2019 - Corrected Calcium decreased to 9.8 - Poor oral intake - HR well controlled in the 60 - 70s Echocardiogram 11/28/2019 Summary: 1. Left ventricular ejection fraction, by visual estimation, is 60 to 65%. 2. Normal left ventricular systolic function. 3. Impaired relaxation (grade 1) pattern of LV diastolic filling. 4. Left ventricular internal cavity size is normal. 5. The right ventricular systolic pressure is moderately elevated at 43.4 mmHg. 6. No regional wall motion abnormalities. 11/30/2019 * Patient with improved p.o. intake, but still poor * Episode of RVR this morning resolved with Lopressor IV 5 mg. This started approximately 3 hours prior to when her Cardizem was due. 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 * Troponin I 0.022 consistent with some heart strain secondary to RVR. * Slight increase in white count 12.1 which may be secondary to stress reaction from RVR. * Patient denies any cough or urinary symptoms * Potassium 3.4, magnesium 1.5, phosphorus 2.0 all continue to be low likely secondary to poor oral intake * PTH 7 (low), 25 hydroxy vitamin D 117, bone scan negative for lytic lesions * Hypercalcemia likely secondary to vitamin D intoxication, but all lab work has not been received. - Plan Plan:: Severe hypercalcemia, resolved Volume depletion, resolved Acute kidney injury, resolved Hypoalbuminemia Multiple electrolyte abnormalities Poor oral intake PLAN - D/C NS - D/C Cooper catheter - Follow up on work up labs - Bone scan done - degenerative changes - D/C calcitonin - CXR today to see if nodule is visible to determine chronicity - IV POTASSIUM phosphate 15 mmol - PO4 oral - Dietary consult and encourage increased p.o. intake Atrial fibrillation, rate controlled on Xarelto PLAN - Diltiazem PO -switch to long-acting, diltiazem XR 240 mg in the morning - Restart metoprolol XL 50 mg at bedtime - Decrease Xarelto dose due creatinine clearance less than 50 Hypertension PLAN -Diltiazem XR 240 mg in the morning -Metoprolol XL 50 mg at bedtime Leukocytosis, likely secondary to stress reaction RVR, this morning resolved with 5 of Lopressor IV PROPHYLAXIS DVT- Home Xarelto and compression stockings GI- not indicated CODE STATUS: DNR/DNI DISPOSITION: Patient will transferred to [facility]. Will await results of studies, once stable she does not need to stay admitted pending results, these can be obtained upon discharge by PCP. She needs to improved strength and ambulation prior to D/C. Plan discharge tomorrow.
[2019-11-30] MEDS ORDERED: Potassium Phosphates 15 MMOLE in Sodium Chloride 0.9% 250 ML IV ONE (13:00)
--- NOTE | 2019-11-30 13:40 | CR ---
Chest: 2 views of the chest were obtained. Comparison: Prior chest x-ray of 11/28/19. Small bilateral pleural effusions are present. Heart size is mildly enlarged. Tortuous thoracic aorta is seen. Pulmonary vessels are felt to be slightly congested. Scattered degenerative disc space narrowing noted within the spine. Impression: 1. Findings most compatible with mild CHF. Diagnostic code #3 Study was dictated in MDT
[2019-11-30] MEDS ORDERED: Furosemide 20 MG/2 ML VIAL IVPUSH ONE (14:22)
[2019-11-30] MEDS: cefTRIAXone 1 GM in Sodium Chloride 0.9% 100 ML IV SCH (17:33)
[2019-11-30] MEDS: Metoprolol Succinate 50 MG Tab.ER PO SCH (21:23)
[2019-12-01] MEDS ORDERED: Potassium Chloride 10 MEQ in Premix Bag 1 BAG IV SCH (08:00)
[2019-12-01] MEDS ORDERED: Magnesium Sulfate/Water 4 GM in Premix Bag 1 BAG IV ONE (08:02)
[2019-12-01] MEDS: Phosphorus #1 250 MG Tab PO SCH ×3 (08:16→20:21)
[2019-12-01] MEDS: Diltiazem 240 MG Cap.ER PO SCH (08:17)
[2019-12-01] MEDS: Rivaroxaban 15 MG Tab PO SCH (08:17)
[2019-12-01] MEDS: Magnesium Oxide 400 MG Tab PO SCH ×2 (08:17→20:21)
[2019-12-01] MEDS ORDERED: Sodium Chloride 0.9% 1,000 ML IV SCH (09:00)
[2019-12-01] MEDS ORDERED: Furosemide 20 MG/2 ML VIAL IVPUSH SCH (09:00)
--- NOTE | 2019-12-01 11:03 | PCM.PN ---
- General Info Date of Service: 12/01/19 Admission Dx/Problem (Free Text): Admission Diagnosis/Problem Admission Diagnosis/Problem Hypercalcemia Subjective Update: Patient states that she is feeling better today. Has a little more energy and less shortness of breath. Oral intake is still poor. 2 bowel movements this morning. Functional Status: Reports: Pain Controlled - Review of Systems General: Reports: Fatigue HEENT: Reports: No Symptoms Pulmonary: Reports: No Symptoms Cardiovascular: Reports: No Symptoms Gastrointestinal: Reports: No Symptoms Musculoskeletal: Reports: No Symptoms Neurological: Reports: No Symptoms Psychiatric: Reports: No Symptoms - Patient Data Vitals - Most Recent: Last Vital Signs Temp 98.1 F 12/01/19 07:15 Pulse 61 12/01/19 07:15 Resp 16 12/01/19 07:15 BP 104/72 12/01/19 07:15 Pulse Ox 96 12/01/19 07:15 Orthostatic Blood Pressure [ 135/75 Standing] Orthostatic Blood Pressure [ 129/109 Sitting] Orthostatic Blood Pressure [ 125/67 Supine] Weight - Most Recent: 73.074 kg I&O - Last 24 Hours: Intake & Output 11/30/19 12/01/19 12/01/19 22:59 06:59 14:59 Intake Total 1915 900 Output Total 550 1300 Balance 1365 -400 Lab Results Last 24 Hours: Laboratory Results - last 24 hr 11/30/19 12/01/19 12/01/19 Range/Units 16:00 05:00 05:00 WBC 9.29 (3.98-10.04) K/mm3 RBC 3.71 L (3.98-5.22) M/mm3 Hgb 10.4 L (11.2-15.7) gm/dl Hct 31.9 L (34.1-44.9) % MCV 86.0 (79.4-94.8) fl MCH 28.0 (25.6-32.2) pg MCHC 32.6 (32.2-35.5) g/dl RDW Std Deviation 40.2 (36.4-46.3) fL Plt Count 206 (182-369) K/mm3 MPV 11.1 (9.4-12.3) fl Neut % (Auto) 71.0 (34.0-71.1) % Lymph % (Auto) 15.9 L (19.3-51.7) % [place] % (Auto) 11.3 (4.7-12.5) % Eos % (Auto) 1.4 (0.7-5.8) Baso % (Auto) 0.2 (0.1-1.2) % Neut # (Auto) 6.59 H (1.56-6.13) K/mm3 Lymph # (Auto) 1.48 (1.18-3.74) K/mm3 [place] # (Auto) 1.05 H (0.24-0.36) K/mm3 Eos # (Auto) 0.13 (0.04-0.36) K/mm3 Baso # (Auto) 0.02 (0.01-0.08) K/mm3 Sodium 142 (136-145) mEq/L Potassium 2.9 L (3.5-5.1) mEq/L Chloride 106 (98-107) mEq/L Carbon Dioxide 27 (21-32) mEq/L Anion Gap 11.9 (5-15) BUN 10 (7-18) mg/dL Creatinine 0.8 (0.55-1.02) mg/dL Est Cr Clr Drug Dosing 45.42 mL/min Estimated GFR (MDRD) > 60 (>60) mL/min BUN/Creatinine Ratio 12.5 L (14-18) Glucose 93 (83-115) mg/dL Calcium 8.9 (8.5-10.1) mg/dL Phosphorus 3.3 (2.6-4.7) mg/dL Magnesium 1.6 L (1.8-2.4) mg/dl Total Bilirubin 0.3 (0.2-1.0) mg/dL AST 52 H (15-37) U/L ALT 23 (14-59) U/L Alkaline Phosphatase 74 (46-116) U/L Total Protein 5.8 L (6.4-8.2) g/dl Albumin 2.4 L (3.4-5.0) g/dl Globulin 3.4 gm/dL Albumin/Globulin Ratio 0.7 L (1-2) Urine Color Light yellow (Yellow) Urine Appearance Slt cloudy H (Clear) Urine pH 6.0 (5.0-8.0) Ur Specific [place] 1.020 (1.005-1.030) Urine Protein 1+ H (Negative) Urine Glucose (UA) Negative (Negative) Urine Ketones Negative (Negative) Urine Occult Blood 3+ H (Negative) Urine Nitrite Positive H (Negative) Urine Bilirubin Negative (Negative) Urine Urobilinogen 0.2 (0.2-1.0) Ur Leukocyte Esterase 2+ H (Negative) Urine RBC >100 H (0-5) /hpf Urine WBC 10-20 H (0-5) /hpf Ur Epithelial Cells 0-5 (0-5) /hpf Urine Bacteria Moderate H (FEW) /hpf Urine Mucus Few (FEW) /hpf Jesús Results Last 24 Hours: Microbiology 11/30/19 16:00 Urine Culture - Preliminary Urine, Clean Catch Gram Negative Rods Med Orders - Current: Current Medications Acetaminophen (Tylenol) 325 mg PO Q4H PRN PRN Reason: Pain (Mild 1-3)/fever Diltiazem HCl (Dilacor Xr) 240 mg PO DAILY [facility] Last Admin: 12/01/19 08:17 Dose: 240 mg Documented by: Ceftriaxone Sodium 1 gm/ (Sodium Chloride) 100 mls @ 200 mls/hr IV Q24H [facility] Last Admin: 11/30/19 17:33 Dose: 200 mls/hr Documented by: Magnesium Sulfate 4 gm/ Premix 50 mls @ 12.5 mls/hr IV ONETIME ONE Stop: 12/01/19 12:01 Last Admin: 12/01/19 08:15 Dose: 12.5 mls/hr Documented by: Potassium Chloride 10 meq/ (Premix) 100 mls @ 100 mls/hr IV Q1H [facility] Stop: 12/01/19 16:59 Sodium Chloride (Normal Saline) 1,000 mls @ 50 mls/hr IV ASDIRECTED [facility] Magnesium Oxide (Magnesium Oxide) 400 mg PO BID [facility] Last Admin: 12/01/19 08:17 Dose: 400 mg Documented by: Metoprolol Succinate (Toprol Xl) 50 mg PO BEDTIME [facility] Last Admin: 11/30/19 21:23 Dose: 50 mg Documented by: Ondansetron HCl (Zofran Odt) 4 mg PO Q6H PRN PRN Reason: nausea, able to take PO Last Admin: 11/30/19 21:24 Dose: 4 mg Documented by: Ondansetron HCl (Zofran) 4 mg IV Q6H PRN PRN Reason: Nausea/Vomiting Potassium Chloride (Potassium Chloride Solution) 20 meq PO BID [facility] Rivaroxaban (Xarelto) 15 mg PO DAILY [facility] Last Admin: 12/01/19 08:17 Dose: 15 mg Documented by: Sodium Chloride (Saline Flush) 10 ml FLUSH ASDIRECTED PRN PRN Reason: Keep Vein Open Last Admin: 11/27/19 14:45 Dose: 10 ml Documented by: Sodium Phosphate (Neutra-Phos) 500 mg PO TID [facility] Last Admin: 12/01/19 08:16 Dose: 500 mg Documented by: Discontinued Medications Calcitonin Alfred (Miacalcin) 280 units SUBCUT Q12H [facility] Last Admin: 11/29/19 04:23 Dose: 280 units Documented by: Diltiazem HCl (Cardizem) 10 mg IVPUSH ONETIME ONE Stop: 11/27/19 14:53 Last Admin: 11/27/19 15:34 Dose: 10 mg Documented by: Diltiazem HCl (Cardizem) 60 mg PO Q6H [facility] Last Admin: 11/29/19 13:23 Dose: Not Given Documented by: Furosemide (Lasix) 20 mg IVPUSH ONETIME ONE Stop: 11/30/19 14:23 Last Admin: 11/30/19 14:55 Dose: 20 mg Documented by: Furosemide (Lasix) 20 mg IVPUSH DAILY [facility] Stop: 12/01/19 09:01 Last Admin: 12/01/19 08:16 Dose: 20 mg Documented by: Sodium Chloride (Normal Saline) 1,000 mls @ 999 mls/hr IV ONETIME ONE Stop: 11/27/19 15:36 Last Admin: 11/27/19 14:45 Dose: 999 mls/hr Documented by: Diltiazem HCl 100 mg/ Sodium (Chloride) 100 mls @ 10 mls/hr IV TITRATE [facility]; Protocol Last Titration: 11/27/19 21:10 Dose: 0 mg/hr, 0 mls/hr Documented by: Sodium Chloride (Normal Saline) 1,000 mls @ 200 mls/hr IV ONETIME ONE Stop: 11/27/19 21:29 Last Admin: 11/27/19 17:53 Dose: 200 mls/hr Documented by: Pamidronate Disodium 90 mg/ (Sodium Chloride) 1,000 mls @ 166.667 mls/hr IV ONETIME ONE Stop: 11/27/19 16:45 Last Admin: 11/27/19 17:48 Dose: 166.667 mls/hr Documented by: Sodium Chloride (Normal Saline) 1,000 mls @ 200 mls/hr IV ASDIRECTED [facility] Last Admin: 11/29/19 05:17 Dose: 200 mls/hr Documented by: Sodium Chloride (Normal Saline) Confirm Administered Dose 1,000 mls @ as directed .ROUTE .STK-MED ONE Stop: 11/27/19 23:12 Last Admin: 11/27/19 23:27 Dose: Not Given Documented by: Magnesium Sulfate 2 gm/ Premix 50 mls @ 25 mls/hr IV ONETIME ONE Stop: 11/28/19 09:25 Last Admin: 11/28/19 08:20 Dose: 25 mls/hr Documented by: Potassium Chloride 10 meq/ (Premix) 100 mls @ 100 mls/hr IV Q1H [facility] Stop: 11/28/19 11:29 Last Admin: 11/28/19 11:33 Dose: 100 mls/hr Documented by: Magnesium Sulfate 4 gm/ Premix 50 mls @ 12.5 mls/hr IV ONETIME ONE Stop: 11/29/19 13:29 Last Admin: 11/29/19 10:19 Dose: 12.5 mls/hr Documented by: Potassium Phosphate 15 mmole/ (Sodium Chloride) 255 mls @ 85 mls/hr IV ONETIME ONE Stop: 11/29/19 12:29 Last Admin: 11/29/19 10:33 Dose: 85 mls/hr Documented by: Magnesium Sulfate 4 gm/ Premix 50 mls @ 12.5 mls/hr IV ONETIME ONE Stop: 11/30/19 12:59 Last Admin: 11/30/19 09:06 Dose: 12.5 mls/hr Documented by: Potassium Phosphate 15 mmole/ (Sodium Chloride) 255 mls @ 85 mls/hr IV ONETIME ONE Stop: 11/30/19 15:59 Last Admin: 11/30/19 14:20 Dose: 85 mls/hr Documented by: Potassium Chloride 10 meq/ (Premix) 100 mls @ 100 mls/hr IV Q1H [facility] Stop: 12/01/19 11:59 Last Admin: 12/01/19 08:54 Dose: Not Given Documented by: Metoprolol Tartrate (Lopressor) 5 mg IVPUSH ONETIME STA Stop: 11/30/19 09:01 Last Admin: 11/30/19 09:05 Dose: 5 mg Documented by: Ondansetron HCl (Zofran) 4 mg IVPUSH ONETIME ONE Stop: 11/27/19 14:37 Last Admin: 11/27/19 14:45 Dose: 4 mg Documented by: Potassium Chloride (Klor-Con M20) 40 meq PO Q4H [facility] Stop: 11/28/19 15:01 Last Admin: 11/28/19 14:05 Dose: 40 meq Documented by: Potassium Chloride (Klor-Con M20) 40 meq PO ONETIME ONE Stop: 11/29/19 09:01 Last Admin: 11/29/19 13:24 Dose: Not Given Documented by: Potassium Chloride (Potassium Chloride Solution) 40 meq PO ONETIME ONE Stop: 11/29/19 11:04 Last Admin: 11/29/19 12:12 Dose: 40 meq Documented by: Potassium Phosphate (Potassium Phosphates) 30 mmole IV ONETIME ONE Stop: 11/28/19 08:01 Rivaroxaban (Xarelto) 20 mg PO DAILY [facility] Last Admin: 11/28/19 08:25 Dose: 20 mg Documented by: Sodium Phosphate (Neutra-Phos) 250 mg PO BID [facility] Last Admin: 11/29/19 13:23 Dose: Not Given Documented by: Sodium Phosphate (Neutra-Phos) 500 mg PO QID [facility] - Exam Quality Assessment: No: Supplemental Oxygen General: Alert, Oriented HEENT: Pupils Equal, Mucous Membr. Moist/[place] Neck: Supple Lungs: Clear to Auscultation, Normal Respiratory Effort Cardiovascular: Regular Rate, Regular Rhythm GI/Abdominal Exam: Normal Bowel Sounds, Soft, Non-Tender, No Organomegaly, No Distention, No Abnormal Bruit, No Mass Extremities: Normal Inspection, Normal Range of Motion, Non-Tender, No Pedal Edema, Normal Capillary Refill Skin: Warm, Dry, Intact Neurological: No New Focal Deficit Psy/Mental Status: Alert, Normal Affect, Normal Mood Sepsis Event Note - Evaluation Sepsis Screening Result: No Definite Risk - Focused Exam Vital Signs: Vital Signs Temp Pulse Resp BP Pulse Ox 12/01/19 07:15 98.1 F 61 16 104/72 96 12/01/19 03:03 98.1 F 80 18 124/95 H 97 Date Exam was Performed: 12/01/19 Time Exam was Performed: 11:27 - Problem List & Annotations (1) Acute kidney injury SNOMED Code(s): 58062080, 45790979 Code(s): N17.9 - ACUTE KIDNEY FAILURE, UNSPECIFIED Status: Acute Current Visit: Yes (2) Atrial fibrillation with RVR SNOMED Code(s): 638626353416754 Code(s): I48.91 - UNSPECIFIED ATRIAL FIBRILLATION Status: Acute Current Visit: Yes (3) Chronic anticoagulation SNOMED Code(s): 272139452 Code(s): Z79.01 - HALFWAY (CURRENT) USE OF ANTICOAGULANTS Status: Acute Current Visit: Yes (4) Hypoalbuminemia SNOMED Code(s): 758600179 Code(s): E88.09 - OTH DISORDERS OF PLASMA-PROTEIN METABOLISM, NEC Status: Acute Current Visit: Yes (5) Hypokalemia SNOMED Code(s): 58450312 Code(s): E87.6 - HYPOKALEMIA Status: Acute Current Visit: Yes (6) Hypophosphatemia SNOMED Code(s): 9499216 Code(s): E83.39 - OTHER DISORDERS OF PHOSPHORUS METABOLISM Status: Acute Current Visit: Yes (7) Lung nodule < 6cm on CT SNOMED Code(s): 336401761, 300893085 Code(s): R91.1 - SOLITARY PULMONARY NODULE Status: Acute Current Visit: Y es - Problem List Review Problem List Initiated/Reviewed/Updated: Yes - My Orders Last 24 Hours: My Active Orders 11/30/19 16:00 CULTURE URINE [RM] Routine 11/30/19 17:00 cefTRIAXone [Rocephin] 1 gm Sodium Chloride 0.9% [Normal Saline] 100 ml IV Q24H 11/30/19 21:00 Metoprolol Succinate [Toprol XL] 50 mg PO BEDTIME 12/01/19 08:02 Magnesium Sulfate/Water [Magnesium Sulfate in Water Premix] 4 gm Premix Bag 1 bag IV ONETIME 12/01/19 09:00 Sodium Chloride 0.9% [Normal Saline] 1,000 ml IV ASDIRECTED 12/01/19 Lunch Regular Diet [DIET] 12/01/19 13:00 Potassium Chloride [KCl 10 MEQ in Water 100 ML] 10 meq Premix Bag 1 bag IV Q1H 12/01/19 14:00 Potassium Chloride [Potassium Chloride Solution] 20 meq PO BID - Assessment Assessment:: ASSESSMENT 11/27/2019 - On calcium and vitamin D supplementation at home - Hemoglobin stable for the past year - Baseline GFR is normal, likely secondary to volume depletion - Possible etiologies - Paraneoplastic: Does not meet crab criteria for multiple myeloma and denies history of smoking - Primary hyperparathyroidism, likely due to postmenopausal state and asymptomatic - Sarcoidosis is also an option with possible adenopathies on CXR - No family history of endocrine neoplasm - Came in for constipation but was found to have a heart rate between 80 and 160 in the emergency department - Has been taking Xarelto - Has metoprolol for blood pressure and has not been taking it in the past 5 days - 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 - CT chest with new BLAIRE 7mm nodule - RVR resolved later on and she was started on PO Diltiazem 11/28/2019 - New Labs - Calcium down to 12.2 - K down from 3.5 to 3 - Gap closed - PO4 4.3 to 2.8 - Vitamin D 117 - EKG changes form admission except for RBBB resolved 11/29/2019 - Corrected Calcium decreased to 9.8 - Poor oral intake - HR well controlled in the 60 - 70s Echocardiogram 11/28/2019 Summary: 1. Left ventricular ejection fraction, by visual estimation, is 60 to 65%. 2. Normal left ventricular systolic function. 3. Impaired relaxation (grade 1) pattern of LV diastolic filling. 4. Left ventricular internal cavity size is normal. 5. The right ventricular systolic pressure is moderately elevated at 43.4 mmHg. 6. No regional wall motion abnormalities. 11/30/2019 * Patient with improved p.o. intake, but still poor * Episode of RVR this morning resolved with Lopressor IV 5 mg. This started approximately 3 hours prior to when her Cardizem was due. 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 * Troponin I 0.022 consistent with some heart strain secondary to RVR. * Slight increase in white count 12.1 which may be secondary to stress reaction from RVR. * Patient denies any cough or urinary symptoms * Potassium 3.4, magnesium 1.5, phosphorus 2.0 all continue to be low likely secondary to poor oral intake * PTH 7 (low), 25 hydroxy vitamin D 117, bone scan negative for lytic lesions * Hypercalcemia likely secondary to vitamin D intoxication, but all lab work has not been received. 12/01/2019 * UA consistent with UTI * Urine culture growing gram-negative rods * Started on ceftriaxone on 11/30/2019 * Elevated white count resolved * Magnesium 1.6 and potassium 2.9 * Corrected calcium 10.2 * Lasix 20 mg IV given yesterday and this morning * Heart rate much better controlled with the addition of metoprolol XL 50 mg in the evening - Plan Plan:: Severe hypercalcemia, resolved Volume depletion, resolved Acute kidney injury, resolved Hypoalbuminemia Multiple electrolyte abnormalities Poor oral intake PLAN -Continue Rocephin 1 g daily -Await urine culture and sensitivities - Bone scan done - degenerative changes - D/C calcitonin - CXR yesterday consistent with mild vascular congestion -Given 2 doses of Lasix 20 mg IV and breathing much improved -Replenish potassium and magnesium -Add protein shakes Atrial fibrillation, rate controlled on Xarelto PLAN - Diltiazem XR 240 mg in the morning - Restart metoprolol XL 50 mg at bedtime - Decrease Xarelto dose due creatinine clearance less than 50 Hypertension PLAN -Diltiazem XR 240 mg in the morning -Metoprolol XL 50 mg at bedtime Leukocytosis, resolved PROPHYLAXIS DVT- Home Xarelto and compression stockings GI- not indicated CODE STATUS: DNR/DNI DISPOSITION: Patient will transferred to [facility]. Will await results of studies, once stable she does not need to stay admitted pending results, these can be obtained upon discharge by PCP. She needs to improved strength and ambulation prior to D/C. Plan discharge tomorrow.
[2019-12-01] MEDS: Potassium Chloride 10 MEQ in Premix Bag 1 BAG IV SCH ×4 (12:33→17:15)
[2019-12-01] MEDS: Potassium Chloride 10% 20 MEQ/15 ML Soln 15 ML UD Cup PO SCH ×2 (15:00→20:22)
[2019-12-01] MEDS: cefTRIAXone 1 GM in Sodium Chloride 0.9% 100 ML IV SCH (17:12)
[2019-12-01] MEDS: Metoprolol Succinate 50 MG Tab.ER PO SCH (20:21)
[2019-12-01] MEDS ORDERED: Metoprolol Tartrate 5 MG/5 ML SDV ONE (20:53)
[2019-12-01] MEDS ORDERED: Metoprolol Tartrate 5 MG/5 ML SDV IVPUSH ONE (20:54)
[2019-12-01] MEDS ORDERED: Magnesium Sulfate/Water 2 GM in Premix Bag 1 BAG IV ONE (22:27)
[2019-12-01] MEDS: Digoxin 250 MCG Tab PO SCH (22:35)
[2019-12-02] MEDS: Digoxin 250 MCG Tab PO SCH ×2 (03:45→10:41)
[2019-12-02] MEDS: Phosphorus #1 250 MG Tab PO SCH ×3 (08:47→20:01)
[2019-12-02] MEDS: Potassium Chloride 10% 20 MEQ/15 ML Soln 15 ML UD Cup PO SCH ×2 (08:47→20:01)
[2019-12-02] MEDS: Magnesium Oxide 400 MG Tab PO SCH ×2 (08:48→20:01)
[2019-12-02] MEDS: Sodium Chloride 0.9% 10 ML Syringe FLUSH PRN (08:48)
[2019-12-02] MEDS: Rivaroxaban 15 MG Tab PO SCH (08:48)
[2019-12-02] MEDS ORDERED: Potassium Chloride 10% 20 MEQ/15 ML Soln 15 ML UD Cup PO SCH (09:30)
--- NOTE | 2019-12-02 11:47 | PCM.PN ---
- General Info Date of Service: 12/02/19 Admission Dx/Problem (Free Text): Admission Diagnosis/Problem Admission Diagnosis/Problem Hypercalcemia Subjective Update: Patient developed another episode of A. fib with RVR. She was transferred to the ICU after getting 5 mg of metoprolol IV. She was started on oral digoxin 0.25 mg every 6 hours x3. Patient states she is feeling much better and rates are better controlled. Patient's appetite has improved and she is no longer nauseated. Functional Status: Reports: Pain Controlled - Review of Systems General: Reports: No Symptoms HEENT: Reports: No Symptoms Pulmonary: Reports: No Symptoms Cardiovascular: Reports: No Symptoms Gastrointestinal: Reports: No Symptoms Genitourinary: Reports: No Symptoms Musculoskeletal: Reports: No Symptoms - Patient Data Vitals - Most Recent: Last Vital Signs Temp 97.8 F 12/02/19 08:00 Pulse 80 12/02/19 10:41 Resp 18 12/02/19 08:00 BP 121/76 12/02/19 08:00 Pulse Ox 98 12/02/19 10:00 Orthostatic Blood Pressure [ 135/75 Standing] Orthostatic Blood Pressure [ 129/109 Sitting] Orthostatic Blood Pressure [ 125/67 Supine] Weight - Most Recent: 74.888 kg I&O - Last 24 Hours: Intake & Output 12/01/19 12/02/19 12/02/19 22:59 06:59 14:59 Intake Total 3210 450 310 Output Total 8220 296 2578 Balance 1510 -150 -690 Lab Results Last 24 Hours: Laboratory Results - last 24 hr 12/01/19 12/02/19 12/02/19 Range/Units 21:35 04:53 04:53 WBC 9.35 (3.98-10.04) K/mm3 RBC 3.77 L (3.98-5.22) M/mm3 Hgb 10.5 L (11.2-15.7) gm/dl Hct 32.5 L (34.1-44.9) % MCV 86.2 (79.4-94.8) fl MCH 27.9 (25.6-32.2) pg MCHC 32.3 (32.2-35.5) g/dl RDW Std Deviation 40.5 (36.4-46.3) fL Plt Count 213 (182-369) K/mm3 MPV 11.3 (9.4-12.3) fl Neut % (Auto) 69.5 (34.0-71.1) % Lymph % (Auto) 16.0 L (19.3-51.7) % Humphreys % (Auto) 12.9 H (4.7-12.5) % Eos % (Auto) 1.2 (0.7-5.8) Baso % (Auto) 0.2 (0.1-1.2) % Neut # (Auto) 6.49 H (1.56-6.13) K/mm3 Lymph # (Auto) 1.50 (1.18-3.74) K/mm3 Humphreys # (Auto) 1.21 H (0.24-0.36) K/mm3 Eos # (Auto) 0.11 (0.04-0.36) K/mm3 Baso # (Auto) 0.02 (0.01-0.08) K/mm3 Manual Slide Review Not Reportable Sodium 139 141 (136-145) mEq/L Potassium 3.8 3.2 L (3.5-5.1) mEq/L Chloride 102 105 (98-107) mEq/L Carbon Dioxide 25 28 (21-32) mEq/L Anion Gap 15.8 H 11.2 (5-15) BUN 14 10 (7-18) mg/dL Creatinine 0.9 0.7 (0.55-1.02) mg/dL Est Cr Clr Drug Dosing 40.38 51.91 mL/min Estimated GFR (MDRD) 59 > 60 (>60) mL/min BUN/Creatinine Ratio 15.6 14.3 (14-18) Glucose 125 H 103 (83-115) mg/dL Calcium 9.9 9.2 (8.5-10.1) mg/dL Magnesium 1.7 L 2.0 (1.8-2.4) mg/dl Albumin 2.5 L (3.4-5.0) g/dl Jesús Results Last 24 Hours: Microbiology 11/30/19 16:00 Urine Culture - Final Urine, Clean Catch Escherichia Coli Med Orders - Current: Current Medications Acetaminophen (Tylenol) 325 mg PO Q4H PRN PRN Reason: Pain (Mild 1-3)/fever Cephalexin (Keflex) 500 mg PO Q6HR PATRICIA Magnesium Oxide (Magnesium Oxide) 400 mg PO BID [facility] Last Admin: 12/02/19 08:48 Dose: 400 mg Documented by: Metoprolol Succinate (Toprol Xl) 50 mg PO BEDTIME [facility] Last Admin: 12/01/19 20:21 Dose: 50 mg Documented by: Ondansetron HCl (Zofran Odt) 4 mg PO Q6H PRN PRN Reason: nausea, able to take PO Last Admin: 11/30/19 21:24 Dose: 4 mg Documented by: Ondansetron HCl (Zofran) 4 mg IV Q6H PRN PRN Reason: Nausea/Vomiting Potassium Chloride (Potassium Chloride Solution) 20 meq PO BID [facility] Last Admin: 12/02/19 08:47 Dose: 20 meq Documented by: Rivaroxaban (Xarelto) 15 mg PO DAILY [facility] Last Admin: 12/02/19 08:48 Dose: 15 mg Documented by: Sodium Chloride (Saline Flush) 10 ml FLUSH ASDIRECTED PRN PRN Reason: Keep Vein Open Last Admin: 12/02/19 08:48 Dose: 10 ml Documented by: Sodium Phosphate (Neutra-Phos) 500 mg PO TID [facility] Last Admin: 12/02/19 08:47 Dose: 500 mg Documented by: Discontinued Medications Calcitonin [place] (Miacalcin) 280 units SUBCUT Q12H [facility] Last Admin: 11/29/19 04:23 Dose: 280 units Documented by: Digoxin (Lanoxin) 250 mcg PO Q6H [facility] Stop: 12/02/19 10:31 Last Admin: 12/02/19 10:41 Dose: 250 mcg Documented by: Diltiazem HCl (Cardizem) 10 mg IVPUSH ONETIME ONE Stop: 11/27/19 14:53 Last Admin: 11/27/19 15:34 Dose: 10 mg Documented by: Diltiazem HCl (Cardizem) 60 mg PO Q6H [facility] Last Admin: 11/29/19 13:23 Dose: Not Given Documented by: Diltiazem HCl (Dilacor Xr) 240 mg PO DAILY [facility] Last Admin: 12/01/19 08:17 Dose: 240 mg Documented by: Furosemide (Lasix) 20 mg IVPUSH ONETIME ONE Stop: 11/30/19 14:23 Last Admin: 11/30/19 14:55 Dose: 20 mg Documented by: Furosemide (Lasix) 20 mg IVPUSH DAILY PATRICIA Stop: 12/01/19 09:01 Last Admin: 12/01/19 08:16 Dose: 20 mg Documented by: Sodium Chloride (Normal Saline) 1,000 mls @ 999 mls/hr IV ONETIME ONE Stop: 11/27/19 15:36 Last Admin: 11/27/19 14:45 Dose: 999 mls/hr Documented by: Diltiazem HCl 100 mg/ Sodium (Chloride) 100 mls @ 10 mls/hr IV TITRATE PATRICIA; Protocol Last Titration: 11/27/19 21:10 Dose: 0 mg/hr, 0 mls/hr Documented by: Sodium Chloride (Normal Saline) 1,000 mls @ 200 mls/hr IV ONETIME ONE Stop: 11/27/19 21:29 Last Admin: 11/27/19 17:53 Dose: 200 mls/hr Documented by: Pamidronate Disodium 90 mg/ (Sodium Chloride) 1,000 mls @ 166.667 mls/hr IV ONETIME ONE Stop: 11/27/19 16:45 Last Admin: 11/27/19 17:48 Dose: 166.667 mls/hr Documented by: Sodium Chloride (Normal Saline) 1,000 mls @ 200 mls/hr IV ASDIRECTED PATRICIA Last Admin: 11/29/19 05:17 Dose: 200 mls/hr Documented by: Sodium Chloride (Normal Saline) Confirm Administered Dose 1,000 mls @ as directed .ROUTE .STK-MED ONE Stop: 11/27/19 23:12 Last Admin: 11/27/19 23:27 Dose: Not Given Documented by: Magnesium Sulfate 2 gm/ Premix 50 mls @ 25 mls/hr IV ONETIME ONE Stop: 11/28/19 09:25 Last Admin: 11/28/19 08:20 Dose: 25 mls/hr Documented by: Potassium Chloride 10 meq/ (Premix) 100 mls @ 100 mls/hr IV Q1H PATRICIA Stop: 11/28/19 11:29 Last Admin: 11/28/19 11:33 Dose: 100 mls/hr Documented by: Magnesium Sulfate 4 gm/ Premix 50 mls @ 12.5 mls/hr IV ONETIME ONE Stop: 11/29/19 13:29 Last Admin: 11/29/19 10:19 Dose: 12.5 mls/hr Documented by: Potassium Phosphate 15 mmole/ (Sodium Chloride) 255 mls @ 85 mls/hr IV ONETIME ONE Stop: 11/29/19 12:29 Last Admin: 11/29/19 10:33 Dose: 85 mls/hr Documented by: Magnesium Sulfate 4 gm/ Premix 50 mls @ 12.5 mls/hr IV ONETIME ONE Stop: 11/30/19 12:59 Last Admin: 11/30/19 09:06 Dose: 12.5 mls/hr Documented by: Potassium Phosphate 15 mmole/ (Sodium Chloride) 255 mls @ 85 mls/hr IV ONETIME ONE Stop: 11/30/19 15:59 Last Admin: 11/30/19 14:20 Dose: 85 mls/hr Documented by: Ceftriaxone Sodium 1 gm/ (Sodium Chloride) 100 mls @ 200 mls/hr IV Q24H [facility] Last Admin: 12/01/19 17:12 Dose: 200 mls/hr Documented by: Potassium Chloride 10 meq/ (Premix) 100 mls @ 100 mls/hr IV Q1H PATRICIA Stop: 12/01/19 11:59 Last Admin: 12/01/19 08:54 Dose: Not Given Documented by: Magnesium Sulfate 4 gm/ Premix 50 mls @ 12.5 mls/hr IV ONETIME ONE Stop: 12/01/19 12:01 Last Admin: 12/01/19 08:15 Dose: 12.5 mls/hr Documented by: Potassium Chloride 10 meq/ (Premix) 100 mls @ 100 mls/hr IV Q1H [facility] Stop: 12/01/19 16:59 Last Admin: 12/01/19 17:15 Dose: 70 mls/hr Documented by: Sodium Chloride (Normal Saline) 1,000 mls @ 50 mls/hr IV ASDIRECTED [facility] Last Admin: 12/01/19 12:28 Dose: 50 mls/hr Documented by: Magnesium Sulfate 2 gm/ Premix 50 mls @ 25 mls/hr IV ONETIME ONE Stop: 12/02/19 00:26 Last Admin: 12/01/19 22:35 Dose: 25 mls/hr Documented by: Metoprolol Tartrate (Lopressor) 5 mg IVPUSH ONETIME STA Stop: 06/19/20 09:01 Last Admin: 11/30/19 09:05 Dose: 5 mg Documented by: Metoprolol Tartrate (Lopressor) 5 mg IVPUSH ONETIME ONE Stop: 12/01/19 20:55 Last Admin: 12/01/19 21:01 Dose: 5 mg Documented by: Metoprolol Tartrate (Lopressor) Confirm Administered Dose 5 mg .ROUTE .STK-MED ONE Stop: 12/01/19 20:54 Last Admin: 12/01/19 21:01 Dose: Not Given Documented by: Ondansetron HCl (Zofran) 4 mg IVPUSH ONETIME ONE Stop: 11/27/19 14:37 Last Admin: 11/27/19 14:45 Dose: 4 mg Documented by: Potassium Chloride (Klor-Con M20) 40 meq PO Q4H [facility] Stop: 11/28/19 15:01 Last Admin: 11/28/19 14:05 Dose: 40 meq Documented by: Potassium Chloride (Klor-Con M20) 40 meq PO ONETIME ONE Stop: 11/29/19 09:01 Last Admin: 11/29/19 13:24 Dose: Not Given Documented by: Potassium Chloride (Potassium Chloride Solution) 40 meq PO ONETIME ONE Stop: 11/29/19 11:04 Last Admin: 11/29/19 12:12 Dose: 40 meq Documented by: Potassium Chloride (Potassium Chloride Solution) 20 meq PO BID [facility] Potassium Phosphate (Potassium Phosphates) 30 mmole IV ONETIME ONE Stop: 11/28/19 08:01 Rivaroxaban (Xarelto) 20 mg PO DAILY [facility] Last Admin: 11/28/19 08:25 Dose: 20 mg Documented by: Sodium Phosphate (Neutra-Phos) 250 mg PO BID [facility] Last Admin: 11/29/19 13:23 Dose: Not Given Documented by: Sodium Phosphate (Neutra-Phos) 500 mg PO QID [facility] - Exam General: Alert, Oriented HEENT: Pupils Equal, Mucous Membr. Moist/[place] Neck: Supple Lungs: Clear to Auscultation Cardiovascular: Irregular Rhythm (And rate) GI/Abdominal Exam: Normal Bowel Sounds, Soft, Non-Tender, No Organomegaly, No Distention, No Abnormal Bruit Back Exam: Normal Inspection Extremities: Normal Inspection, Normal Range of Motion, Non-Tender, No Pedal Edema, Normal Capillary Refill Skin: Warm, Dry, Intact Psy/Mental Status: Alert, Normal Affect, Normal Mood Sepsis Event Note - Evaluation Sepsis Screening Result: No Definite Risk - Focused Exam Vital Signs: Vital Signs Temp Pulse Pulse Resp BP BP Pulse Ox 12/02/19 10:41 80 12/02/19 10:00 98 12/02/19 08:30 12/02/19 08:00 97.8 F 18 121/76 99 12/02/19 07:00 84/61 L 12/02/19 06:00 68 94/63 12/02/19 05:00 64 109/68 12/02/19 04:00 97.9 F 60 16 99/71 95 12/02/19 03:45 83 12/02/19 03:00 70 109/61 12/02/19 02:01 91/63 12/02/19 02:00 67 91/63 12/02/19 01:01 99/58 L 12/02/19 01:00 60 99/58 L 12/02/19 00:08 84/64 L 12/02/19 00:00 98.0 F 70 15 79/60 L 84/64 L 100 Pulse Ox 12/02/19 10:41 12/02/19 10:00 12/02/19 08:30 95 12/02/19 08:00 12/02/19 07:00 12/02/19 06:00 12/02/19 05:00 12/02/19 04:00 12/02/19 03:45 12/02/19 03:00 12/02/19 02:01 12/02/19 02:00 12/02/19 01:01 12/02/19 01:00 12/02/19 00:08 12/02/19 00:00 Date Exam was Performed: 12/02/19 Time Exam was Performed: 11:41 - Problem List & Annotations (1) Acute kidney injury SNOMED Code(s): 08836933, 11831750 Code(s): N17.9 - ACUTE KIDNEY FAILURE, UNSPECIFIED Status: Acute Current Visit: Yes (2) Atrial fibrillation with RVR SNOMED Code(s): 162371442486525 Code(s): I48.91 - UNSPECIFIED ATRIAL FIBRILLATION Status: Acute Current Visit: Yes (3) Chronic anticoagulation SNOMED Code(s): 290726451 Code(s): Z79.01 - [employer] (CURRENT) USE OF ANTICOAGULANTS Status: Acute Current Visit: Yes (4) Hypoalbuminemia SNOMED Code(s): 458896513 Code(s): E88.09 - OTH DISORDERS OF PLASMA-PROTEIN METABOLISM, NEC Status: Acute Current Visit: Yes (5) Hypokalemia SNOMED Code(s): 85271234 Code(s): E87.6 - HYPOKALEMIA Status: Acute Current Visit: Yes (6) Hypophosphatemia SNOMED Code(s): 7889805 Code(s): E83.39 - OTHER DISORDERS OF PHOSPHORUS METABOLISM Status: Acute Current Visit: Yes (7) Lung nodule < 6cm on CT SNOMED Code(s): 129356803, 712624060 Code(s): R91.1 - SOLITARY PULMONARY NODULE Status: Acute Current Visit: Yes - Problem List Review Problem List Initiated/Reviewed/Updated: Yes - My Orders Last 24 Hours: My Active Orders 12/01/19 Lunch Regular Diet [DIET] 12/01/19 14:00 Potassium Chloride [Potassium Chloride Solution] 20 meq PO BID 12/01/19 21:00 Admission Status [Patient Status] [ADT] Routine 12/02/19 12:00 cephALEXin [Keflex] 500 mg PO Q6HR - Assessment Assessment:: ASSESSMENT 11/27/2019 - On calcium and vitamin D supplementation at home - Hemoglobin stable for the past year - Baseline GFR is normal, likely secondary to volume depletion - Possible etiologies - Paraneoplastic: Does not meet crab criteria for multiple myeloma and denies history of smoking - Primary hyperparathyroidism, likely due to postmenopausal state and asymptomatic - Sarcoidosis is also an option with possible adenopathies on CXR - No family history of endocrine neoplasm - Came in for constipation but was found to have a heart rate between 80 and 160 in the emergency department - Has been taking Xarelto - Has metoprolol for blood pressure and has not been taking it in the past 5 days - 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 - CT chest with new BLAIRE 7mm nodule - RVR resolved later on and she was started on PO Diltiazem 11/28/2019 - New Labs - Calcium down to 12.2 - K down from 3.5 to 3 - Gap closed - PO4 4.3 to 2.8 - Vitamin D 117 - EKG changes form admission except for RBBB resolved 11/29/2019 - Corrected Calcium decreased to 9.8 - Poor oral intake - HR well controlled in the 60 - 70s Echocardiogram 11/28/2019 Summary: 1. Left ventricular ejection fraction, by visual estimation, is 60 to 65%. 2. Normal left ventricular systolic function. 3. Impaired relaxation (grade 1) pattern of LV diastolic filling. 4. Left ventricular internal cavity size is normal. 5. The right ventricular systolic pressure is moderately elevated at 43.4 mmHg. 6. No regional wall motion abnormalities. 11/30/2019 * Patient with improved p.o. intake, but still poor * Episode of RVR this morning resolved with Lopressor IV 5 mg. This started approximately 3 hours prior to when her Cardizem was due. 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 * Troponin I 0.022 consistent with some heart strain secondary to RVR. * Slight increase in white count 12.1 which may be secondary to stress reaction from RVR. * Patient denies any cough or urinary symptoms * Potassium 3.4, magnesium 1.5, phosphorus 2.0 all continue to be low likely secondary to poor oral intake * PTH 7 (low), 25 hydroxy vitamin D 117, bone scan negative for lytic lesions * Hypercalcemia likely secondary to vitamin D intoxication, but all lab work has not been received. 12/01/2019 * UA consistent with UTI * Urine culture growing gram-negative rods * Started on ceftriaxone on 11/30/2019 * Elevated white count resolved * Magnesium 1.6 and potassium 2.9 * Corrected calcium 10.2 * Lasix 20 mg IV given yesterday and this morning * Heart rate much better controlled with the addition of metoprolol XL 50 mg in the evening 12/02/2019 * Episode of RVR last night requiring IV metoprolol and transferred to ICU * Started on loading of oral digoxin. * Stopped Cardizem * Heart rate much better improved * Urine culture grew out pansensitive E. coli * Magnesium 2.0 potassium still low at 3.2 * Corrected calcium 10.4, mildly elevated; likely secondary to excessive vitamin D. - Plan Plan:: Severe hypercalcemia, resolved Volume depletion, resolved Acute kidney injury, resolved Hypoalbuminemia Multiple electrolyte abnormalities Poor oral intake PLAN -Switch Rocephin 1 g daily to Keflex 500-Await urine culture and sensitivities - Bone scan done - degenerative changes - D/C calcitonin - CXR yesterday consistent with mild vascular congestion -Follow electrolytes and magnesium -Replenish magnesium -Add protein shakes Atrial fibrillation, rate controlled on Xarelto PLAN -Stop diltiazem XR 240 mg in the morning -Start digoxin 0.25 mg daily after loading dose - metoprolol XL 50 mg at bedtime - Decrease Xarelto dose due creatinine clearance less than 50 Hypertension PLAN -Metoprolol XL 50 mg at bedtime Leukocytosis, resolved PROPHYLAXIS DVT- Home Xarelto and compression stockings GI- not indicated CODE STATUS: DNR/DNI DISPOSITION: Patient will transferred to [facility]. Will await results of studies, once stable she does not need to stay admitted pending results, these can be obtained upon discharge by PCP. Strength has improved proving medical status. Plan discharge tomorrow.
[2019-12-02] MEDS: Cephalexin 500 MG Cap PO SCH ×3 (12:16→20:01)
[2019-12-02] MEDS: Metoprolol Succinate 50 MG Tab.ER PO SCH (20:00)
[2019-12-03] MEDS: Magnesium Oxide 400 MG Tab PO SCH (08:36)
[2019-12-03] MEDS: Cephalexin 500 MG Cap PO SCH ×2 (08:36→14:00)
[2019-12-03] MEDS: Phosphorus #1 250 MG Tab PO SCH (08:37)
[2019-12-03] MEDS: Rivaroxaban 15 MG Tab PO SCH (08:37)
[2019-12-03] MEDS: Potassium Chloride 10% 20 MEQ/15 ML Soln 15 ML UD Cup PO SCH (08:39)
[2019-12-03 08:40] VITALS: PULSE 85
[2019-12-03 08:47] VITALS: BP 104/69
[2019-12-03] MEDS ORDERED: Digoxin 250 MCG Tab PO SCH (09:00)
--- NOTE | 2019-12-03 12:45 | PCM.DCSUM1 ---
Discharge Summary - Hospital Course HPI Initial Comments: This is an 84-year-old female with past medical history of atrial fibrillation and hypertension who comes to the emergency department for constipation and "dehydration" As per patient she was constipated for approximately 8 days to the point that on 11/21 she stopped eating. During this time she continued to drink about 8 to 12 glasses of water a day. She went to outpatient [facility] and was prescribed magnesium after which he had a large bowel movement on Tuesday described followed by multiple diarrheal-like bowel movements. Associates this to fatigue, decreased appetite, chills, weakness, palpitations, nausea, vomiting. She denies any chest pain, SOTO, PND, orthopnea, shortness of breath, lower extremity edema. Diagnosis: Stroke: No - Discharge Data Discharge Date: 12/03/19 Discharge Disposition: Home, Self-Care 01 Condition: Good - Referral to Home Health Primary Care Physician: Carolynn Goins TELEPHONE CLERK - Discharge Diagnosis/Problem(s) (1) Acute kidney injury SNOMED Code(s): 44676618, 91612607 ICD Code: N17.9 - ACUTE KIDNEY FAILURE, UNSPECIFIED Status: Acute Current Visit: Yes (2) Atrial fibrillation with RVR SNOMED Code(s): 183281429385116 ICD Code: I48.91 - UNSPECIFIED ATRIAL FIBRILLATION Status: Acute Current Visit: Yes (3) Chronic anticoagulation SNOMED Code(s): 122334484 ICD Code: Z79.01 - GLAZE WIPER (CURRENT) USE OF ANTICOAGULANTS Status: Acute Current Visit: Yes (4) Hypoalbuminemia SNOMED Code(s): 438741374 ICD Code: E88.09 - OTH DISORDERS OF PLASMA-PROTEIN METABOLISM, NEC Status: Acute Current Visit: Yes (5) Hypokalemia SNOMED Code(s): 42719788 ICD Code: E87.6 - HYPOKALEMIA Status: Acute Current Visit: Yes (6) Hypophosphatemia SNOMED Code(s): 3416558 ICD Code: E83.39 - OTHER DISORDERS OF PHOSPHORUS METABOLISM Status: Acute Current Visit: Yes (7) Lung nodule < 6cm on CT SNOMED Code(s): 336699627, 849752236 ICD Code: R91.1 - SOLITARY PULMONARY NODULE Status: Acute Current Visit: Yes (8) Vitamin D toxicity SNOMED Code(s): 52269789 ICD Code: T45.2X1A - POISONING BY VITAMINS, ACCIDENTAL (UNINTENTIONAL), INIT Status: Acute Current Visit: Yes (9) Hypercalcemia SNOMED Code(s): 70619992 ICD Code: E83.52 - HYPERCALCEMIA Status: Acute Current Visit: No - Patient Summary/Data Consults: Consultations 11/27/19 17:40 Consult to Case Management/Maintainer Central Office [CONS] Routine OT Evaluation and Treatment [CONS] Routine PT Evaluation and Treatment [CONS] Routine Hospital Course: 11/27/2019 - On calcium and vitamin D supplementation at home - Hemoglobin stable for the past year - Baseline GFR is normal, likely secondary to volume depletion - Possible etiologies - Paraneoplastic: Does not meet crab criteria for multiple myeloma and denies history of smoking - Primary hyperparathyroidism, likely due to postmenopausal state and asymptomatic - Sarcoidosis is also an option with possible adenopathies on CXR - No family history of endocrine neoplasm - Came in for constipation but was found to have a heart rate between 80 and 160 in the emergency department - Has been taking Xarelto - Has metoprolol for blood pressure and has not been taking it in the past 5 days - 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 - CT chest with new BLAIRE 7mm nodule - RVR resolved later on and she was started on PO Diltiazem 11/28/2019 - New Labs - Calcium down to 12.2 - K down from 3.5 to 3 - Gap closed - PO4 4.3 to 2.8 - Vitamin D 117 - EKG changes form admission except for RBBB resolved 11/29/2019 - Corrected Calcium decreased to 9.8 - Poor oral intake - HR well controlled in the 60 - 70s Echocardiogram 11/28/2019 Summary: 1. Left ventricular ejection fraction, by visual estimation, is 60 to 65%. 2. Normal left ventricular systolic function. 3. Impaired relaxation (grade 1) pattern of LV diastolic filling. 4. Left ventricular internal cavity size is normal. 5. The right ventricular systolic pressure is moderately elevated at 43.4 mmHg. 6. No regional wall motion abnormalities. 11/30/2019 * Patient with improved p.o. intake, but still poor * Episode of RVR this morning resolved with Lopressor IV 5 mg. This started approximately 3 hours prior to when her Cardizem was due. * Last visit in March she required both Cardizem and metoprolol to keep rate controlled in the director of healthcare systems hours. * Troponin I 0.022 consistent with some heart strain secondary to RVR. * Slight increase in white count 12.1 which may be secondary to stress reaction from RVR. * Patient denies any cough or urinary symptoms * Potassium 3.4, magnesium 1.5, phosphorus 2.0 all continue to be low likely secondary to poor oral intake * PTH 7 (low), 25 hydroxy vitamin D 117, bone scan negative for lytic lesions * Hypercalcemia likely secondary to vitamin D intoxication, but all lab work has not been received. 12/01/2019 * UA consistent with UTI * Urine culture growing gram-negative rods * Started on ceftriaxone on 11/30/2019 * Elevated white count resolved * Magnesium 1.6 and potassium 2.9 * Corrected calcium 10.2 * Lasix 20 mg IV given yesterday and this morning * Heart rate much better controlled with the addition of metoprolol XL 50 mg in the evening 12/02/2019 * Episode of RVR last night requiring IV metoprolol and transferred to ICU * Started on loading of oral digoxin. * Stopped Cardizem * Heart rate much better improved * Urine culture grew out pansensitive E. coli * Magnesium 2.0 potassium still low at 3.2 * Corrected calcium 10.4, mildly elevated; likely secondary to excessive vitamin D. 12/03/2019 * Patient's heart rate has been much better controlled on digoxin and metoprolol. * Corrected calcium is starting to increase at 12 * Recommended low calcium foods and no supplements. * Urine growing E. coli that is feliciano sensitive and started on Keflex yesterday * Magnesium 1.8, phosphorus 4.9, potassium 3.2 - Patient Instructions Diet: Heart Healthy Diet (Do not eat or drink dairy or any high calcium foods.) Activity: As Tolerated Driving: Do Not Drive Showering/Bathing: May Shower Other/Special Instructions: Follow-up with your PCP this week. You were started on digoxin for your atrial fibrillation. This medicine needs to be monitored closely and drug levels will need to be drawn. Also, you will need follow-up of your calcium level. Please keep yourself active and drink at least 6 to 8 glasses of water per day. Avoid any supplements with calcium or vitamin D. Do not use any nutritional drinks or protein drinks that have calcium. Also avoid any dairy products. Do not sit or lie for prolonged periods of time. - Discharge Plan *PRESCRIPTION DRUG MONITORING PROGRAM REVIEWED*: No *COPY OF PRESCRIPTION DRUG MONITORING REPORT IN PATIENT MARTHA: No Prescriptions/Med Rec: Digoxin 250 mcg PO DAILY #30 tablet cephALEXin [Keflex] 1,000 mg PO BID #12 cap Magnesium Oxide 400 mg PO BID #60 tablet Potassium Chloride [Potassium Chloride Solution] 20 meq PO BID #240 ml Home Medications: Home Meds Omeprazole 20 mg PO DAILY 12/13/14 [History] Fluticasone Propionate [Flovent] 1 spray INH ASDIRECTED PRN 02/16/19 [History] Rivaroxaban [Xarelto] 20 mg PO DAILY #30 tablet 02/21/19 [Rx] Digoxin 250 mcg PO DAILY #30 tablet 12/03/19 [Rx] Magnesium Oxide 400 mg PO BID #60 tablet 12/03/19 [Rx] Metoprolol Succinate [Toprol XL 50mg] 50 mg PO BEDTIME tab.er 12/03/19 [Rx] Potassium Chloride [Potassium Chloride Solution] 20 meq PO BID #240 ml 12/03/19 [Rx] cephALEXin [Keflex] 1,000 mg PO BID #12 cap 12/03/19 [Rx] Patient Handouts: Hypercalcemia, Pulmonary Nodule, Bonf-[id number], Atrial Fibrillation, [id number] Forms: ED Department Discharge Referrals: Carolynn Goins TELEPHONE CLERK [Primary Care Provider] - - Discharge Summary/Plan Comment DC Time >30 min.: Yes Discharge Summary/Plan Comment: Discharged home in good condition. Patient to follow-up with primary care provider this week. She will need digoxin level, potassium magnesium, phosphate, calcium, and albumin. She was counseled to stop all supplements and avoid foods that are rich in calcium and all dairy. Drink at least 6 to 8 glasses of water a day. Finish antibiotics. CT chest done showed a small 7 mm nodule. This may need follow-up imaging. - General Info Date of Service: 12/03/19 Admission Dx/Problem (Free Text: Admission Diagnosis/Problem Admission Diagnosis/Problem Hypercalcemia Subjective Update: Patient is feeling much better. She denies any shortness of breath. She did have one episode of chest discomfort in the middle the night but had a negative troponin. This was likely reflux. Functional Status: Reports: Pain Controlled - Review of Systems General: Reports: No Symptoms HEENT: Reports: No Symptoms Pulmonary: Reports: No Symptoms Cardiovascular: Reports: No Symptoms Gastrointestinal: Reports: No Symptoms Musculoskeletal: Reports: No Symptoms Neurological: Reports: No Symptoms Psychiatric: Reports: No Symptoms - Patient Data Vitals - Most Recent: Last Vital Signs Temp 97.8 F 12/03/19 08:00 Pulse 85 12/03/19 08:36 Resp 18 12/03/19 08:00 BP 104/69 12/03/19 08:00 Pulse Ox 98 12/03/19 08:00 Orthostatic Blood Pressure [ 135/75 Standing] Orthostatic Blood Pressure [ 129/109 Sitting] Orthostatic Blood Pressure [ 125/67 Supine] Weight - Most Recent: 74.843 kg I&O - Last 24 hours: Intake & Output 12/02/19 12/03/19 12/03/19 22:59 06:59 14:59 Output Total 800 1100 Balance -800 -1100 Lab Results - Last 24 hrs: Laboratory Results - last 24 hr 12/03/19 12/03/19 12/03/19 Range/Units 05:26 05:26 05:26 WBC 9.44 (3.98-10.04) K/mm3 RBC 3.91 L (3.98-5.22) M/mm3 Hgb 11.0 L (11.2-15.7) gm/dl Hct 34.1 (34.1-44.9) % MCV 87.2 (79.4-94.8) fl MCH 28.1 (25.6-32.2) pg MCHC 32.3 (32.2-35.5) g/dl RDW Std Deviation 40.7 (36.4-46.3) fL Plt Count 234 (182-369) K/mm3 MPV 11.3 (9.4-12.3) fl Neut % (Auto) 67.1 (34.0-71.1) % Lymph % (Auto) 15.8 L (19.3-51.7) % Whitman % (Auto) 15.1 H (4.7-12.5) % Eos % (Auto) 1.6 (0.7-5.8) Baso % (Auto) 0.3 (0.1-1.2) % Neut # (Auto) 6.33 H (1.56-6.13) K/mm3 Lymph # (Auto) 1.49 (1.18-3.74) K/mm3 Whitman # (Auto) 1.43 H (0.24-0.36) K/mm3 Eos # (Auto) 0.15 (0.04-0.36) K/mm3 Baso # (Auto) 0.03 (0.01-0.08) K/mm3 Manual Slide Review Abnormal smear Sodium 142 (136-145) mEq/L Potassium 3.2 L (3.5-5.1) mEq/L Chloride 104 (98-107) mEq/L Carbon Dioxide 28 (21-32) mEq/L Anion Gap 13.2 (5-15) BUN 15 (7-18) mg/dL Creatinine 0.9 (0.55-1.02) mg/dL Est Cr Clr Drug Dosing 40.38 mL/min Estimated GFR (MDRD) 59 (>60) mL/min BUN/Creatinine Ratio 16.7 (14-18) Glucose 115 (83-115) mg/dL Calcium 10.7 H D (8.5-10.1) mg/dL Phosphorus 4.9 H (2.6-4.7) mg/dL Magnesium 1.8 (1.8-2.4) mg/dl Total Bilirubin 0.4 (0.2-1.0) mg/dL AST 48 H (15-37) U/L ALT 27 (14-59) U/L Alkaline Phosphatase 76 (46-116) U/L Troponin I < 0.017 (0.00-0.056) ng/mL Total Protein 6.0 L (6.4-8.2) g/dl Albumin 2.4 L (3.4-5.0) g/dl Globulin 3.6 gm/dL Albumin/Globulin Ratio 0.7 L (1-2) Vitamin D 25-Hydroxy 97.2 (30.0-100.0) ng/ml MICHELLE Results - Last 24 hrs: Microbiology 11/30/19 16:00 Urine Culture - Final Urine, Clean Catch Escherichia Coli Med Orders - Current: Current Medications Acetaminophen (Tylenol) 325 mg PO Q4H PRN PRN Reason: Pain (Mild 1-3)/fever Cephalexin (Keflex) 500 mg PO QID [facility] Last Admin: 12/03/19 08:36 Dose: 500 mg Documented by: Digoxin (Lanoxin) 250 mcg PO DAILY [facility] Last Admin: 12/03/19 08:36 Dose: 250 mcg Documented by: Magnesium Oxide (Magnesium Oxide) 400 mg PO BID [facility] Last Admin: 12/03/19 08:36 Dose: 400 mg Documented by: Metoprolol Succinate (Toprol Xl) 50 mg PO BEDTIME [facility] Last Admin: 12/02/19 20:00 Dose: 50 mg Documented by: Ondansetron HCl (Zofran Odt) 4 mg PO Q6H PRN PRN Reason: nausea, able to take PO Last Admin: 11/30/19 21:24 Dose: 4 mg Documented by: Ondansetron HCl (Zofran) 4 mg IV Q6H PRN PRN Reason: Nausea/Vomiting Potassium Chloride (Potassium Chloride Solution) 20 meq PO BID [facility] Last Admin: 12/03/19 08:39 Dose: 20 meq Documented by: Rivaroxaban (Xarelto) 15 mg PO DAILY [facility] Last Admin: 12/03/19 08:37 Dose: 15 mg Documented by: Sodium Chloride (Saline Flush) 10 ml FLUSH ASDIRECTED PRN PRN Reason: Keep Vein Open Last Admin: 12/02/19 08:48 Dose: 10 ml Documented by: Discontinued Medications Calcitonin [place] (Miacalcin) 280 units SUBCUT Q12H [facility] Last Admin: 11/29/19 04:23 Dose: 280 units Documented by: Cephalexin (Keflex) 500 mg PO Q6HR [facility] Last Admin: 12/02/19 12:16 Dose: 500 mg Documented by: Digoxin (Lanoxin) 250 mcg PO Q6H [facility] Stop: 12/02/19 10:31 Last Admin: 12/02/19 10:41 Dose: 250 mcg Documented by: Diltiazem HCl (Cardizem) 10 mg IVPUSH ONETIME ONE Stop: 11/27/19 14:53 Last Admin: 11/27/19 15:34 Dose: 10 mg Documented by: Diltiazem HCl (Cardizem) 60 mg PO Q6H [facility] Last Admin: 11/29/19 13:23 Dose: Not Given Documented by: Diltiazem HCl (Dilacor Xr) 240 mg PO DAILY [facility] Last Admin: 12/01/19 08:17 Dose: 240 mg Documented by: Furosemide (Lasix) 20 mg IVPUSH ONETIME ONE Stop: 11/30/19 14:23 Last Admin: 11/30/19 14:55 Dose: 20 mg Documented by: Furosemide (Lasix) 20 mg IVPUSH DAILY [facility] Stop: 12/01/19 09:01 Last Admin: 12/01/19 08:16 Dose: 20 mg Documented by: Sodium Chloride (Normal Saline) 1,000 mls @ 999 mls/hr IV ONETIME ONE Stop: 11/27/19 15:36 Last Admin: 11/27/19 14:45 Dose: 999 mls/hr Documented by: Diltiazem HCl 100 mg/ Sodium (Chloride) 100 mls @ 10 mls/hr IV TITRATE PATRICIA; Protocol Last Titration: 11/27/19 21:10 Dose: 0 mg/hr, 0 mls/hr Documented by: Sodium Chloride (Normal Saline) 1,000 mls @ 200 mls/hr IV ONETIME ONE Stop: 11/27/19 21:29 Last Admin: 11/27/19 17:53 Dose: 200 mls/hr Documented by: Pamidronate Disodium 90 mg/ (Sodium Chloride) 1,000 mls @ 166.667 mls/hr IV ONETIME ONE Stop: 11/27/19 16:45 Last Admin: 11/27/19 17:48 Dose: 166.667 mls/hr Documented by: Sodium Chloride (Normal Saline) 1,000 mls @ 200 mls/hr IV ASDIRECTED PATRICIA Last Admin: 11/29/19 05:17 Dose: 200 mls/hr Documented by: Sodium Chloride (Normal Saline) Confirm Administered Dose 1,000 mls @ as directed .ROUTE .STK-MED ONE Stop: 11/27/19 23:12 Last Admin: 11/27/19 23:27 Dose: Not Given Documented by: Magnesium Sulfate 2 gm/ Premix 50 mls @ 25 mls/hr IV ONETIME ONE Stop: 11/28/19 09:25 Last Admin: 11/28/19 08:20 Dose: 25 mls/hr Documented by: Potassium Chloride 10 meq/ (Premix) 100 mls @ 100 mls/hr IV Q1H [facility] Stop: 11/28/19 11:29 Last Admin: 11/28/19 11:33 Dose: 100 mls/hr Documented by: Magnesium Sulfate 4 gm/ Premix 50 mls @ 12.5 mls/hr IV ONETIME ONE Stop: 11/29/19 13:29 Last Admin: 11/29/19 10:19 Dose: 12.5 mls/hr Documented by: Potassium Phosphate 15 mmole/ (Sodium Chloride) 255 mls @ 85 mls/hr IV ONETIME ONE Stop: 11/29/19 12:29 Last Admin: 11/29/19 10:33 Dose: 85 mls/hr Documented by: Magnesium Sulfate 4 gm/ Premix 50 mls @ 12.5 mls/hr IV ONETIME ONE Stop: 11/30/19 12:59 Last Admin: 11/30/19 09:06 Dose: 12.5 mls/hr Documented by: Potassium Phosphate 15 mmole/ (Sodium Chloride) 255 mls @ 85 mls/hr IV ONETIME ONE Stop: 11/30/19 15:59 Last Admin: 11/30/19 14:20 Dose: 85 mls/hr Documented by: Ceftriaxone Sodium 1 gm/ (Sodium Chloride) 100 mls @ 200 mls/hr IV Q24H [facility] Last Admin: 12/01/19 17:12 Dose: 200 mls/hr Documented by: Potassium Chloride 10 meq/ (Premix) 100 mls @ 100 mls/hr IV Q1H [facility] Stop: 12/01/19 11:59 Last Admin: 12/01/19 08:54 Dose: Not Given Documented by: Magnesium Sulfate 4 gm/ Premix 50 mls @ 12.5 mls/hr IV ONETIME ONE Stop: 12/01/19 12:01 Last Admin: 12/01/19 08:15 Dose: 12.5 mls/hr Documented by: Potassium Chloride 10 meq/ (Premix) 100 mls @ 100 mls/hr IV Q1H [facility] Stop: 12/01/19 16:59 Last Admin: 12/01/19 17:15 Dose: 70 mls/hr Documented by: Sodium Chloride (Normal Saline) 1,000 mls @ 50 mls/hr IV ASDIRECTED [facility] Last Admin: 12/01/19 12:28 Dose: 50 mls/hr Documented by: Magnesium Sulfate 2 gm/ Premix 50 mls @ 25 mls/hr IV ONETIME ONE Stop: 12/02/19 00:26 Last Admin: 12/01/19 22:35 Dose: 25 mls/hr Documented by: Metoprolol Tartrate (Lopressor) 5 mg IVPUSH ONETIME STA Stop: 11/30/19 09:01 Last Admin: 11/30/19 09:05 Dose: 5 mg Documented by: Metoprolol Tartrate (Lopressor) 5 mg IVPUSH ONETIME ONE Stop: 12/01/19 20:55 Last Admin: 12/01/19 21:01 Dose: 5 mg Documented by: Metoprolol Tartrate (Lopressor) Confirm Administered Dose 5 mg .ROUTE .STK-MED ONE Stop: 12/01/19 20:54 Last Admin: 12/01/19 21:01 Dose: Not Given Documented by: Ondansetron HCl (Zofran) 4 mg IVPUSH ONETIME ONE Stop: 11/27/19 14:37 Last Admin: 11/27/19 14:45 Dose: 4 mg Documented by: Potassium Chloride (Klor-Con M20) 40 meq PO Q4H [facility] Stop: 11/28/19 15:01 Last Admin: 11/28/19 14:05 Dose: 40 meq Documented by: Potassium Chloride (Klor-Con M20) 40 meq PO ONETIME ONE Stop: 11/29/19 09:01 Last Admin: 11/29/19 13:24 Dose: Not Given Documented by: Potassium Chloride (Potassium Chloride Solution) 40 meq PO ONETIME ONE Stop: 11/29/19 11:04 Last Admin: 11/29/19 12:12 Dose: 40 meq Documented by: Potassium Chloride (Potassium Chloride Solution) 20 meq PO BID [facility] Last Admin: 12/02/19 11:52 Dose: Not Given Documented by: Potassium Phosphate (Potassium Phosphates) 30 mmole IV ONETIME ONE Stop: 11/28/19 08:01 Rivaroxaban (Xarelto) 20 mg PO DAILY [facility] Last Admin: 11/28/19 08:25 Dose: 20 mg Documented by: Sodium Phosphate (Neutra-Phos) 250 mg PO BID [facility] Last Admin: 11/29/19 13:23 Dose: Not Given Documented by: Sodium Phosphate (Neutra-Phos) 500 mg PO QID [facility] Sodium Phosphate (Neutra-Phos) 500 mg PO TID [facility] Last Admin: 12/03/19 08:37 Dose: 500 mg Documented by: - Exam General: Reports: Alert, Oriented HEENT: Reports: Pupils Equal, Mucous Membr. Moist/[place] Neck: Reports: Supple Lungs: Reports: Clear to Auscultation, Normal Respiratory Effort Cardiovascular: Reports: Irregular Rhythm (and rate) GI/Abdominal Exam: Normal Bowel Sounds, Soft, Non-Tender, No Organomegaly, No Distention, No Abnormal Bruit, No Mass Back Exam: Reports: Normal Inspection Extremities: Normal Inspection, Normal Range of Motion, Non-Tender, No Pedal Edema, Normal Capillary Refill Skin: Reports: Warm, Dry, Intact Psy/Mental Status: Reports: Alert, Normal Affect, Normal Mood *Q Meaningful Use (DIS) - VTE *Q VTE Anticoagulation Contraindications: Medical/Procedure Contrai
== END 2019-12-03 14:10 | disposition home or self-care (01) | DRG 683 ==
LOC: SUPCPDRO 14:19 → JD.ED 14:19 → JD.ICU 16:39 → UNDOADMIN 19:08 → JD.MS 11-29 10:20 → JD.ICU 11-29 10:20 → JD.MS 12-01 21:00 → UNDODISIN 12-03 14:10
PROVIDERS: ADMIT Internal Medicine; ATTEND Internal Medicine
DX: E83.51 Hypocalcemia (principal); N17.9 Acute kidney failure, unspecified; N39.0 Urinary tract infection, site not specified; I48.91 Unspecified atrial fibrillation; K57.90 Diverticulosis of intestine, part unspecified, without perforation or abscess without bleeding; E83.52 Hypercalcemia; E88.09 Other disorders of plasma-protein metabolism, not elsewhere classified; E87.6 Hypokalemia; Z66 Do not resuscitate; E86.9 Volume depletion, unspecified; R91.1 Solitary pulmonary nodule; I10 Essential (primary) hypertension; K21.9 Gastro-esophageal reflux disease without esophagitis; K59.00 Constipation, unspecified; H54.7 Unspecified visual loss; B96.20 Unspecified Escherichia coli [E. coli] as the cause of diseases classified elsewhere; Z86.010 Personal history of colon polyps; T45.2X5A Adverse effect of vitamins, initial encounter; Z79.01 Long term (current) use of anticoagulants; Z79.899 Other long term (current) drug therapy; Z87.440 Personal history of urinary (tract) infections; Z98.49 Cataract extraction status, unspecified eye; Z90.49 Acquired absence of other specified parts of digestive tract; Z90.710 Acquired absence of both cervix and uterus
CPT/HCPCS: 36415; 74022; 80053; 82306; 82397; 82553; 83880; 83970; 84100; 84155; 84165; 84443; 84484; 84590; 85007; 85027; 93005; 96361; 96374; 96375; 99285; J0630; J2405; J2430; J3490 ×2; J7030 ×3; J7050; 71046; 71046-26; 71250; 71250-26; 78306; 78306-26; 80048; 81001; 82040; 83735; 85025; 87086; 87088; 87186; 93010; 93306; 97110-GO; 97110-GP; 97116-GP; 97162-GP; 97165-GO; 97530-GO; 97530-GP; 97535-GO; 99222; 99231; 99232; 99239; 99284; A9270-GY; J0696; J3475; J3480